=== PATIENT | female | born 1980 | race Two or more races ===

== ENCOUNTER → 2021-01-14 08:15 | Outpatient (BNVA) | payer OTHER, SELFPAY | PROVIDERS: Visit Provider Internal Medicine Gastroenterology | DX: R10.13 Epigastric pain (principal); R19.4 Change in bowel habit; K62.5 Hemorrhage of anus and rectum | CPT/HCPCS: Q3014 ==

== ENCOUNTER 2021-02-13 12:27 | Day surgery (SDC) | payer OTHER, SELFPAY ==
--- NOTE | 2021-02-12 15:21 | HO.ANESPROP2 ---
Documented by User: Linda Mena 02/12/21 15:22 HPI - Anesthesia Eval Consult details Narrative: 40yo F for Upper Endoscopy and Colonoscopy PMFSH Active Problems Active Problems: All Active Problems (Updated 02/07/21 @ 15:19 by Marianne Cavanaugh) Rectal bleeding (Acute) Altered bowel habits (Acute) Epigastric abdominal pain (Acute) Past Medical History Medical History (Updated 02/13/21 @ 12:59 by Alexia Dobbins) Anxiety Asthma Diabetes mellitus GERD (gastroesophageal reflux disease) HTN (hypertension) DARIN (obstructive sleep apnea) Umbilical hernia Family History Family History Mother HTN (hypertension) Diabetes Father Heart disease Surgical History Surgical History H/O section H/O eye surgery History of appendectomy History of esophagogastroduodenoscopy (EGD) History of tonsillectomy Hx of bilateral breast reduction surgery Social History Social History Household Members: Spouse and Children Alcohol intake: current Alcohol intake frequency: other Smoking Status: Never smoker Use of substances other than those prescribed or required for medical reasons: No Advance Directives: No Advance Directives Information Provided: Yes Meds Allergies Allergy/AdvReac Type Severity Reaction Status Date / Time codeine [CODEINE] Allergy Severe SWELLING Verified 02/13/21 12:34 doxycycline [DOXYCYCLINE] Allergy Severe SWELLING Verified 02/13/21 12:34 guaifenesin [From ROBITUSSIN] Allergy Intermediate DIFFICULTY Verified 02/13/21 12:34 BREATHING antibiotic not sure which one Allergy Mild swollen Uncoded 02/07/21 15:19 face Home Medications Medication Instructions Recorded Confirmed Last Taken Type cholecalciferol (vitamin D3) 25 mcg PO DAILY 02/07/21 02/07/21 Unknown History [Vitamin D3] hydroxyzine pamoate 1 cap PO QID PRN 02/07/21 02/07/21 Unknown History lisinopril-hydrochlorothiazide 1 tab PO DAILY 02/07/21 02/07/21 Unknown History metformin 2 tab PO BID 02/07/21 02/07/21 Unknown History semaglutide [Ozempic] 1 mg SUBCUT QWEEK 02/07/21 02/07/21 Unknown History Exam Exam Date and Time: February 12, 2021 1521 Assessment and Plan Assessment Anesthesia Assessment: Chart Reviewed Documented by User: Alexia Dobbins 02/13/21 13:00 [facility] Past Medical History Medical History (Updated 02/13/21 @ 12:59 by Alexia Dobbins) Anxiety Asthma Diabetes mellitus GERD (gastroesophageal reflux disease) HTN (hypertension) DARIN (obstructive sleep apnea) Umbilical hernia Family History Family History Mother HTN (hypertension) Diabetes Father Heart disease Family history of problems with anesthesia: No Surgical History Surgical History H/O section H/O eye surgery History of appendectomy History of esophagogastroduodenoscopy (EGD) History of tonsillectomy Hx of bilateral breast reduction surgery History of Problems with Anesthesia: No Social History Social History Household Members: Spouse and Children Alcohol intake: current Alcohol intake frequency: other Smoking Status: Never smoker Use of substances other than those prescribed or required for medical reasons: No Advance Directives: No Advance Directives Information Provided: Yes Meds Allergies Allergy/AdvReac Type Severity Reaction Status Date / Time codeine [CODEINE] Allergy Severe SWELLING Verified 02/13/21 12:34 doxycycline [DOXYCYCLINE] Allergy Severe SWELLING Verified 02/13/21 12:34 guaifenesin [From ROBITUSSIN] Allergy Intermediate DIFFICULTY Verified 02/13/21 12:34 BREATHING antibiotic not sure which one Allergy Mild swollen Uncoded 02/07/21 15:19 face Home Medications Medication Instructions Recorded Confirmed Last Taken Type cholecalciferol (vitamin D3) 25 mcg PO DAILY 02/07/21 02/07/21 Unknown History [Vitamin D3] hydroxyzine pamoate 1 cap PO QID PRN 02/07/21 02/07/21 Unknown History lisinopril-hydrochlorothiazide 1 tab PO DAILY 02/07/21 02/07/21 Unknown History metformin 2 tab PO BID 02/07/21 02/07/21 Unknown History semaglutide [Ozempic] 1 mg SUBCUT QWEEK 02/07/21 02/07/21 Unknown History Exam Height,Weight and Vital Signs: Vital Signs Temp Pulse Resp BP Pulse Ox 02/13/21 12:37 97.8 F 95 16 135/89 98 Pertinent Lab Results Pertinent Lab Results: Lab Results 02/13/21 02/13/21 Range/Units 12:36 12:41 POC Glucose 138 H (60-115) mg/dL Urine Test NEGATIVE (NEGATIVE) Airway Mallampati Class: II TM Dist: >3cm Neck ROM: Full Heart: RRR Lungs: CTAB Assessment and Plan Assessment Anesthesia Assessment: Anesthesia Plan Discussed and Chart Reviewed Final Anesthetic Review NPO: Yes ASA Class: II Final Preanesthetic Review: No Changes in Pt Med Stat, Meds/Allgs Chart Reviewed, Consent Obtained/Reviewed and Anes Risks/Benef Reviewed Patient Risk: Low Procedure Risk: Low Assessment/Block/Sedation in SS: Assess/Block/Sedation-SS Anesthetic Plan Anesthetic Plan: MAC: Disposition: Standard PACU
[2021-02-13 12:37] VITALS: BP 135/89; PULSE 95; RESP 16; TEMP 36.6; O2SAT 98; BMI 38.7
[2021-02-13 12:45] LABS: Glucose, Whole Blood 138 mg/dL (60-115)
[2021-02-13 12:54] LABS: UPreg QC Valid YES; Urine Pregnancy NEGATIVE (NEGATIVE)
[2021-02-13] MEDS: Lactated Ringers 1,000 ML 100 ML IVCONT (12:54)
--- NOTE | 2021-02-13 12:57 | MHC.SHP ---
Pre-Procedural Eval Section B Chief Complaint: Rectal Bleeding, Epigastric Pain Relevant Family History (Specify if Yes): No Relevant Social History: None Present Medications: see Short Stay Collaborative assessment Medical History: Significant History (Anxiety Asthma Diabetes mellitus GERD (gastroesophageal reflux disease) HTN (hypertension) Umbilical hernia) History of Previous Operations: Relevant previous surgery/procedure and date(s) (H/O section H/O eye surgery History of appendectomy History of esophagogastroduodenoscopy (EGD) History of tonsillectomy Hx of bilateral breast reduction surgery) Allergies: Allergies Allergy/AdvReac Type Severity Reaction Status Date / Time codeine [CODEINE] Allergy Severe SWELLING Verified 02/13/21 12:34 doxycycline [DOXYCYCLINE] Allergy Severe SWELLING Verified 02/13/21 12:34 guaifenesin [From ROBITUSSIN] Allergy Intermediate DIFFICULTY Verified 02/13/21 12:34 BREATHING antibiotic not sure which one Allergy Mild swollen Uncoded 02/07/21 15:19 face Review of Systems Sugical H&P ROS: Negative: Constitution, Cardiovascular, Respiratory, Neurological, Psychiatric, Hem-Onc, Allergic/Immunologic, Gastrointestinal, Genitourinary, Musculoskeletal, Integumentary, Endocrine and Eyes/Ears/Nose/Throat Exam Surgical H&P Exam: Normal: HEENT, Normal: Heart, Normal: Lungs, Normal: Extremities, Normal: Abdomen, Normal: Skin and Normal: Neurological Plan Diagnosis/Plan: Unchanged I have reviewed the history and physical and performed a pertinent physical examination on my patient. No changes have occurred unless specified.
--- NOTE | 2021-02-13 13:13 | PM.OP ---
Brief Operative Note Date of Service: 02/13/21 Pre-op diagnosis: epigastric pain, altered bowle habit Post-op diagnosis: same Procedure: see op note Surgeon: Tia Dejesus MD Anesthesia: MAC Estimated blood loss (mL): 0 Condition: stable Disposition: PACU
--- NOTE | 2021-02-13 13:13 | W.PM.OPN ---
Operative Note Operative Note Date of Service: 02/13/21 Narrative: Operative Information Procedure Description: EGD, Colonoscopy FLEXIBLE TRANSORAL UPPER GASTROINTESTINAL ENDOSCOPY AND COLONOSCOPY PROCEDURE NOTE UPPER ENDOSCOPY Consent: Indications for the procedure and potential complications of bleeding, perforation, reaction to medications and missed diagnosis were discussed with the patient and informed consent was obtained. Instrument: Olympus GIF H 190 J mid size upper endoscope Monitoring: Vital signs and clinical assessment, continuous EKG monitoring, Pulse oximetry, Carbon Dioxide monitoring and blood pressure monitoring were done throughout the procedure. Procedure: The patient was placed in the left lateral decubitis position and pre-procedure medications were administered and a bite block was placed. The endoscope was inserted into the mouth and advanced under direct vision to the third part of duodenum. A careful inspection was made as the upper endoscope was withdrawn including a retroflexed examination of the proximal stomach; Findings and interventions are described below. Findings: Larynx:normal Esophagus: GE junction at 35 cm, diaphragm hiatus at 35 cm, normal mucosa-random esophagus bx taken Stomach: patchy erythematous mucosa. Biopsies were obtained. Grade 2 flap valve on retroflexed examination of the cardia. There appeared to be a bulge in the antrum, int he anterior stomach. ?extrinsic compression vs submucosal swelling Duodenum: Normal bulb and descending duodenum, bx taken Intervention: Biopsies as noted above COLONOSCOPY Instrument: Olympus variable stiffness pediatric scope 190L Colonoscopy Monitoring: Vital signs and clinical assessment, continuous EKG monitoring, Pulse oximetry, Carbon Dioxide monitoring and blood pressure monitoring were done throughout the procedure. Colon withdrawal time was 10 minutes. Procedure: The patient was placed in the left lateral decubitis position and pre-procedure medications were administered. After a digital rectal examination of the ano-rectum, the video colonoscope was inserted into the rectum and advanced through the colon to the cecum/TI. The colonoscope was slowly withdrawn in a retrograde panoramic fashion and the colon mucosa was carefully examined including a retroflexed view of the rectum. Findings and interventions are described below. Procedure Difficulty: easy Findings: Terminal Ileum-normal, bx taken random colon bx taken Cecum: 5-6 mm sessile polyp removed with forceps Ascending Colon: normal Transverse Colon - 6-8 mm sessile polyp removed with forceps Descending Colon:normal Sigmoid Colon: normal Rectum: Retroflexion with small internal hemorrhoids, grade I Anorectum - normal Colon preparation: [place] Bowel Preparation Scale Right colon; 2 Transverse colon: 3 Left colon; 2 (0 = Unprepared colon segment with mucosa not seen due to solid stool that cannot be cleared. 1 = Portion of mucosa of the colon segment seen, but other areas of the colon segment not well seen due to staining, residual stool and/or opaque liquid. 2 = Minor amount of residual staining, small fragments of stool and/or opaque liquid, but mucosa of colon segment seen well. 3 = Entire mucosa of colon segment seen well with no residual staining, small fragments of stool or opaque liquid) Impression and Post Procedure Diagnosis: Endoscopy Findings: gastritis possible extrinsic stomach compression Colonoscopy Findings: polyps internal hemorrhoids Plan: Await Pathology results Repeat Colonoscopy in 5 years if adenoma polyps, 10 yrs if hyperplastic or earlier if clinically indicated High fiber diet leaflet avoid straining at stool, epsom salts and sitz bath, anusol supps or cream prn CT A/P with PO and IV contrast to eval stomach in more detail, might need EUS Above findings were reviewed with the patient and relevant handouts were provided if indicated.
[2021-02-13 13:47] VITALS: BP 85/53; PULSE 88; RESP 20; TEMP 36.4; O2SAT 99
[2021-02-13 14:05] VITALS: BP 104/65; PULSE 84; RESP 18; TEMP 36.4; O2SAT 97
== END 2021-02-13 14:22 ==
LOC: HO.SSS 12:28
PROVIDERS: Nurse Practitioner; PCP Hospitalist; Visit Provider Internal Medicine Gastroenterology
PROC: (CPT 45380; principal; 2021-02-13 14:00)
DX: K62.5 Hemorrhage of anus and rectum (principal); D12.0 Benign neoplasm of cecum; D12.3 Benign neoplasm of transverse colon; K52.9 Noninfective gastroenteritis and colitis, unspecified; K64.0 First degree hemorrhoids; K29.50 Unspecified chronic gastritis without bleeding; B96.81 Helicobacter pylori [H. pylori] as the cause of diseases classified elsewhere; K21.9 Gastro-esophageal reflux disease without esophagitis; K44.9 Diaphragmatic hernia without obstruction or gangrene; J45.909 Unspecified asthma, uncomplicated; I10 Essential (primary) hypertension; E11.9 Type 2 diabetes mellitus without complications; Z79.84 Long term (current) use of oral hypoglycemic drugs; Z79.899 Other long term (current) drug therapy
CPT/HCPCS: 45380; 43239; 81025; 82947; 88305; 88342

== ENCOUNTER 2021-03-28 12:43 | Outpatient (REF) | payer OTHER, SELFPAY ==
--- NOTE | ~2021-03-28 | CT_ITS ---
EXAMINATION: CT ABDOMEN AND PELVIS WITH CONTRAST CLINICAL INFORMATION: Epigastric pain. Question extrinsic compression of stomach. COMPARISON: CT abdomen and pelvis 10/23/2009 TECHNIQUE: Multidetector volumetric images were obtained from the superior aspect of the liver through the pubic symphysis following administration 85 mL of Omnipaque 350 intravenous contrast. Sagittal and coronal reformatted images were obtained on the technologist's workstation. Oral contrast: No This CT examination was performed using dose optimization techniques as appropriate, variously including the following: *Automated exposure control *Adjustment of mA and/or kV according to patient size (this includes techniques or standardized protocols for targeted exams where dose is matched to indication/reason for exam; i.e. extremities or head) *Use of iterative reconstruction technique DLP: 658 mGy-cm FINDINGS: LUNG BASES: Minimal atelectatic changes as seen in left lung base. Heart size is normal. LIVER, GALLBLADDER, AND BILIARY TREE: The liver is normal in size, shape, and attenuation. No focal hepatic lesion or biliary ductal dilatation is present. There are multiple radiolucent gallstones without wall thickening or pericholecystic fluid collection. PANCREAS: Unremarkable. SPLEEN: Unremarkable. ADRENAL GLANDS: Unremarkable. KIDNEYS AND URETERS: The kidneys are normal in size, shape, and attenuation. No hydronephrosis, hydroureter, or calculi seen. No perinephric stranding. BLADDER: Unremarkable. GASTROINTESTINAL TRACT: There is scattered stool and gas seen throughout the colon without distention. Oral contrast opacified small bowel loops are normal caliber. Appendix has been surgically removed with sarah in place. The stomach is nondistended. ABDOMINAL WALL: There is evidence of abdominal wall hernia repair with mesh in place. Through the mesh exists a small umbilical hernia containing fat. The neck is approximately 2.7 cm wide. LYMPH NODES: Normal. VASCULAR: Unremarkable. PELVIC VISCERA: The uterus is anteverted within IUD well located in the endometrial canal. There is a 2.6 x 2.7 cm cyst right adnexa likely of ovarian origin. OSSEOUS STRUCTURES: There is no lytic or sclerotic process seen. Mild degenerative disc changes are seen at L5-S1 disc level. CT/CT abdomen pelvis w con IMPRESSION: Cholelithiasis without wall thickening. Moderate constipation. Evidence of previous abdominal wall hernia repair with mesh in place. There is a recurrent umbilical hernia with intraperitoneal fat within.
[2021-03-28 15:34] LABS: Blood Urea Nitrogen 13 mg/dL (9-16); Estimated Glomerular Filt Rate > 60
[2021-03-28] MEDS: iohexoL 350 MG/ML 100 ML INFUS..BTL 85 ML IV (16:13)
== END 2021-03-28 12:44 | disposition home or self-care (01) ==
LOC: HO.CT 12:43
PROVIDERS: Radiology Diagnostic Radiology; Visit Provider Internal Medicine Gastroenterology
DX: R10.13 Epigastric pain (principal); R19.4 Change in bowel habit
CPT/HCPCS: 36415; 74177; 82565; 84520; Q9967

== ENCOUNTER → 2021-05-02 13:41 | Outpatient (REF) | payer OTHER, SELFPAY ==
--- NOTE | 2021-05-02 13:50 | ECG_ITS ---
Hook-up date: 2021-05-02 14:05:00 Duration: 47:59:00 Test Indications: R00.2 - Palpitations Medications: [id number] QRS complexes 433 Ventricular ectopics which represent <1 % of total QRS comp. 4 Supraventricular ectopics which represent <1 % of total QRS comp. * Paced QRS complexs which represent % of total QRS comp. VENTRICULAR ECTOPY 429 Isolated 0 Bigeminal Cycles 2 Couplets 0 Runs 0 Beats in Runs * Beats LONGEST at * BPM at :: -- * Beats FASTEST at * BPM at :: -- SUPRAVENTRICULAR ECTOPY 4 Isolated 0 Couplets 0 Runs 0 Beats in Runs * Beats LONGEST at * BPM at :: -- * Beats FASTEST at * BPM at :: -- HEART RATES 64 MIN at 06:33:45 2021-05-03 94 AVG 140 MAX at 20:47:28 2021-05-02 LONGEST RR 0.9440 secs at 06:33:41 2021-05-03 S-T LEVELS Channel 1 - 128 mm at 14:05:00 2021-05-02 - 128 mm at 14:05:00 2021-05-02 Channel 2 - 128 mm at 14:05:00 2021-05-02 - 128 mm at 14:05:00 2021-05-02 Channel 3 - 128 mm at 03:32:41 -- - 128 mm at 03:32:41 Basic rhythm Normal sinus rhythm No long pause or profound bradycardia Occasional Premature ventricular complexes No diary submitted Referred By: Frandy Patricia Overread By: KI SALVADOR MD
== END ==
LOC: HO.CARD 13:41
PROVIDERS: PCP Family Medicine; Visit Provider Family Medicine
DX: R00.2 Palpitations (principal)
CPT/HCPCS: 93225; 93226

== ENCOUNTER → 2021-05-10 11:24 | Outpatient (BNVA) | payer OTHER, SELFPAY | PROVIDERS: PCP Nurse Practitioner Family; Visit Provider Internal Medicine Gastroenterology ==

== ENCOUNTER → 2021-05-23 09:24 | Outpatient (BNVA) | payer OTHER, SELFPAY | PROVIDERS: PCP Family Medicine; Referring Provider Family Medicine; Visit Provider Surgery | DX: R10.33 Periumbilical pain (principal) | CPT/HCPCS: 99202 ==

== ENCOUNTER 2021-06-07 17:45 | Emergency (ER) | payer OTHER, SELFPAY ==
[2021-06-07] VITALS (7 sets, daily range): BP systolic 149–186; BP diastolic 82–119; PULSE 85–93; RESP 18; TEMP 37.1; O2SAT 98–99; BMI 38.9
--- NOTE | 2021-06-07 | ECG_ITS ---
Test Reason : PALPITATIONS Blood Pressure : / mmHG Vent. Rate : 089 BPM Atrial Rate : 089 BPM P-R Int : 136 ms QRS Dur : 080 ms QT Int : 374 ms P-R-T Axes : 055 072 040 degrees QTc Int : 455 ms Normal sinus rhythm Normal ECG No previous ECGs available Referred By: Generic ED Physician Electronically Signed By:JENIFER GARCIA
--- NOTE | ~2021-06-07 | XR_ITS ---
EXAMINATION: XR CHEST CLINICAL INFORMATION: Palpitations COMPARISON: None TECHNIQUE: Frontal view of the chest was obtained. 1804 hours FINDINGS: No significant abnormality is noted involving the heart, lungs, mediastinum, bony thorax or soft tissues. XR/XR chest 1V IMPRESSION: Unremarkable examination.
[2021-06-07 18:02] LABS: MANUAL DIFF FLAG NO
[2021-06-07 18:04] LABS: Basophils Percent Auto 0.3 % (0-2); Eosinophils Absolute Auto 0.1 X10*3/uL (0.0-0.4); Eosinophils Percent Auto 1.5 % (0-4); Hematocrit 39.5 % (37-47); Hemoglobin 13.3 g/dl (12.0-16.0); Imm Gran Abs Auto 0.03 X10*3/uL (0.00-0.03); Imm Gran Pct Auto 0.4 % (0.0-0.4); Lymphocytes Absolute Auto 2.2 X10*3/uL (1.2-4.9); Lymphocytes Percent Auto 29.6 % (20-40); Mean Corpuscular HGB Conc 33.7 g/dl (31.0-35.0); Mean Corpuscular Hemoglobin 29.2 pg (27.0-33.0); Mean Corpuscular Volume 86.8 fL (80-98); Mean Platelet Volume 9.4 fL (9.4-12.3); Monocytes Absolute Auto 0.5 X10*3/uL (0.1-1.2); Monocytes Percent Auto 6.7 % (2-11); Neutrophils Absolute Auto 4.6 X10*3/uL (2.0-8.3); Neutrophils Percent Auto 61.5 % (45-73); Platelet Count 290 X10*3/uL (160-400); Red Blood Count 4.55 X10*6/uL (4.20-5.50); Red Cell Distribution Width 11.9 % (11.0-16.0); White Blood Count 7.5 X10*3/uL (4.8-10.8)
[2021-06-07 18:26] LABS: Alanine Aminotransferase 16 U/L (0-31); Alkaline Phosphatase 78 U/L (39-117); Anion Gap 14 (12-20); Aspartate Amino Transferase 15 U/L (5-31); Bilirubin Total 0.3 mg/dL (0.0-1.0); Blood Urea Nitrogen 12 mg/dL (9-16); Calcium 9.6 mg/dL (8.4-10.2); Carbon Dioxide 23 mmol/L (22-29); Chloride 104 mmol/L (96-108); Creatinine Clr Calc Pharmacy 92.6; Estimated Glomerular Filt Rate > 60; Glucose Random 170 mg/dL (60-115); Potassium 3.9 mmol/L (3.3-5.1); Sodium 137 mmol/L (135-145); Total Protein 6.6 g/dL (6.5-8.0)
[2021-06-07 18:29] LABS: Troponin-I High Sensitivity < 3.5 ng/L (<3.5-17.0)
--- NOTE | 2021-06-07 21:17 | ED.ARRPALP ---
HPI - Arrhythmia/Palpitations General Chief Complaint: Arrhythmia/Palpitations Stated Complaint: palpitations Time Seen by Provider: 06/07/21 20:55 Source: patient Mode of arrival: ambulatory History of Present Illness HPI narrative: 40-year-old female with history of hypertension presents with 3 days of chest discomfort but denies any dizziness, headaches, speech/visual/auditory changes and denies any unilateral weakness/numbness/tingling. Patient denies shortness of breath and states that her blood pressure medication prescription had run out. During her stay here in the emergency room her was able to feel her blood pressure medication which she took approximately 1 hour ago from the time of my interview with her. Related Data Home Medications Medication Instructions Recorded Confirmed cholecalciferol (vitamin D3) 25 25 mcg PO DAILY 02/07/21 05/23/21 mcg (1,000 unit) capsule (Vitamin D3) hydroxyzine pamoate 50 mg capsule 1 cap PO QID PRN 02/07/21 05/23/21 metformin 500 mg tablet 2 tab PO BID 02/07/21 05/23/21 semaglutide 1 mg/dose (2 mg/1.5 1 mg SUBCUT QWEEK 02/07/21 05/23/21 mL) subcutaneous pen injector (Ozempic) semaglutide 1 mg/dose (4 mg/3 mL) mg SUBCUT 05/23/21 05/23/21 subcutaneous pen injector Previous Rx's Medication Instructions Recorded omeprazole 20 mg tablet,delayed 40 mg PO DAILY #90 tab 01/14/21 release sodium,potassium,mag sulfates 17.5 See Rx Instructions PO .COMPLEX 01/14/21 gram-3.13 gram-1.6 gram oral soln #354 ml (Suprep Bowel Prep Kit) azithromycin 500 mg tablet 500 mg PO DAILY 14 Days #14 tab 02/18/21 bismuth subsalicylate 262 mg 2 tab PO QID 14 Days #112 tab 02/18/21 chewable tablet metronidazole 500 mg tablet 500 mg PO TID 14 Days #42 tab 02/18/21 pantoprazole 20 mg tablet,delayed 20 mg PO BID 14 Days #28 tab 02/18/21 release lisinopril 20 1 tab PO DAILY #90 tab 06/07/21 mg-hydrochlorothiazide 12.5 mg tablet Allergies Allergy/AdvReac Type Severity Reaction Status Date / Time codeine [CODEINE] Allergy Severe SWELLING Verified 06/07/21 19:01 doxycycline [DOXYCYCLINE] Allergy Severe SWELLING Verified 06/07/21 19:01 guaifenesin [From ROBITUSSIN] Allergy Intermediate DIFFICULTY Verified 06/07/21 19:01 BREATHING antibiotic not sure which one Allergy Mild swollen Uncoded 02/07/21 15:19 face Review of Systems Review of Systems: Pertinent positives and negatives as stated in HPI 10 point review of systems is otherwise negative. PMFSH Past Medical History Source: nursing notes reviewed Medical History Anxiety Asthma Diabetes mellitus GERD (gastroesophageal reflux disease) HTN (hypertension) DARIN (obstructive sleep apnea) Umbilical hernia Surgical History H/O section H/O eye surgery History of appendectomy History of esophagogastroduodenoscopy (EGD) History of tonsillectomy Hx of bilateral breast reduction surgery Family History Family History Mother HTN (hypertension) Diabetes Father Heart disease Social History Social History Household Members: Spouse and Children Alcohol intake: current Alcohol intake frequency: other Advance Directives: No Advance Directives Information Provided: No Patient : No Physical Exam Vital Signs: Vital Signs: Last Vital Signs Temp 98.7 F 06/07/21 17:51 Pulse 93 06/07/21 22:10 Resp 18 06/07/21 18:57 BP 149/82 H 06/07/21 22:10 Pulse Ox 99 06/07/21 18:57 Body Mass Index 38.9 VITAL SIGNS: Reviewed. GENERAL: Well developed, well nourished, in no acute distress. HEAD: Normocephalic/atraumatic EYES: PERRLA, EOMI EARS: Ext canals without abnormality OROPHARYNX: no oral lesions noted, posterior pharynx clear LUNGS: Normal breath sounds. No adventitious sounds or accessory muscle use. SpO2<99> CARDIOVASCULAR: Regular rate and rhythm without noted murmurs, no JVD or lower extremity edema. ABDOMEN: Soft, non-tender, non-distended with bowel sounds. SKIN: Inspection of the skin reveals no rashes NEUROLOGIC: Alert and oriented x 4. Strength and sensation to light touch were grossly intact x 4. Course Course Course Narrative: This is a 40-year-old female with history and clinical presentation consistent with symptoms secondary to uncontrolled hypertension but no evidence of focal deficits. Of all investigations negative for acute findings. Patient took her lisinopril/hydrochlorothiazide medication and on re-evaluation at 1:00 a.m. post medication she still remains hypertensive and will receive 10 mg of Norvasc and obtain a urine sample and re-evaluated in 1 hour. Re-evaluation after receiving medication and patient states she is feeling better, blood pressure is noted be under control, and review of urinalysis negative for proteinuria. Patient will be discharged in stable condition. Discharge Plan Discharge Clinical Impression: Hypertension, uncontrolled, Poor compliance with medication Patient Disposition: Home, Self-Care Instructions: Heart Healthy Diet (ED), DASH Eating Plan (ED), Hypertension (ED) Additional Instructions: Resume all medication as prescribed. Follow-up with your primary care provider in the next 2-3 days for re-evaluation. Return to the ER for acute worsening of symptoms. Prescriptions: No Action bismuth subsalicylate 262 mg tablet,chewable 2 tab PO QID 14 Days Qty: 112 RF: 0 metronidazole 500 mg tablet 500 mg PO TID 14 Days Qty: 42 RF: 0 azithromycin 500 mg tablet 500 mg PO DAILY 14 Days Qty: 14 RF: 0 pantoprazole 20 mg tablet,delayed release (DR/EC) 20 mg PO BID 14 Days Qty: 28 RF: 0 lisinopril-hydrochlorothiazide 20-12.5 mg tablet 1 tab PO DAILY Qty: 90 RF: 0 metformin 500 mg tablet 2 tab PO BID RF: 0 hydroxyzine pamoate 50 mg capsule 1 cap PO QID PRN (Reason: anxiety) RF: 0 Ozempic 1 mg/dose (2 mg/1.5 mL) pen injector 1 mg subcut QWEEK RF: 0 cholecalciferol (vitamin D3) [Vitamin D3] 25 mcg (1,000 unit) Capsule 25 mcg PO DAILY RF: 0 Ozempic 1 mg/dose (4 mg/3 mL) pen injector subcut RF: 0 omeprazole 20 mg tablet,delayed release (DR/EC) 40 mg PO DAILY Qty: 90 RF: 3 Suprep Bowel Prep Kit 17.5-3.13-1.6 gram recon soln See Rx Instructions PO .COMPLEX Qty: 354 RF: 0 Referrals: [facility] [Primary Care Provider] - 2 days
[2021-06-07] MEDS: amLODIPine Besylate 10 MG TABLET PO (21:22)
[2021-06-07 21:42] LABS: Appearance Urine CLEAR; Color Urine YELLOW; Glucose Urine UA NEG (NEG); Leukocyte Esterase Urine NEG (NEG); Nitrite Urine NEG (NEG); UACC Culture Trigger NO; Urine Blood TRACE (NEG); Urine Ketones NEG (NEG); Urine Protein NEG (NEG-TRACE)
[2021-06-07 21:43] LABS: UPreg QC Valid YES; Urine Pregnancy NEGATIVE (NEGATIVE)
[2021-06-07 21:48] LABS: Bacteria Urine TRACE /LPF; RBC Urine 0 /HPF (0); Squamous Epithelial Cell Urine 1+ /LPF; WBC Urine 0 /HPF (0-4)
[2021-06-07 22:03] LABS: Amphetamine Screen Urine Not Detected (Not Detect); Barbiturates, Urine Not Detected (Not Detect); Benzodiazepines Screen Urine Not Detected (Not Detect); Cannabinoid Screen Urine Not Detected (Not Detect); Cocaine Screen Urine Not Detected (Not Detect); Opiate Screen Urine Not Detected (Not Detect); Phencyclidine Screen Urine Not Detected (Not Detect)
== END 2021-06-07 22:55 | disposition home or self-care (01) ==
PROVIDERS: Emergency Provider Student in an Organized Health Care Education/Training Program
DX: I10 Essential (primary) hypertension (principal); E11.9 Type 2 diabetes mellitus without complications; Z91.14 Patient's other noncompliance with medication regimen
CPT/HCPCS: 36415; 71045; 80053; 80307; 81001; 81025; 84484; 85025; 93005; 99284

== ENCOUNTER 2021-06-17 08:39 | Outpatient (REF) | payer OTHER, SELFPAY ==
--- NOTE | ~2021-06-17 | US_ITS ---
EXAMINATION: US ABDOMEN LIMITED CLINICAL INFORMATION: Periumbilical pain.. Status post umbilical hernia repair with periumbilical pain and question recurrent hernia. COMPARISON: CT abdomen pelvis 03/28/2021. X-ray KUB 07/30/2020. TECHNIQUE: Real-time imaging of the umbilical region. FINDINGS: Imaging was performed with patient supine as well as standing with cough and Valsalva maneuvers. About the midline there is a region of shadowing present along the midline which is difficult to tell if it may be hernia sac containing bowel versus postsurgical change however this does have the appearance of a possible hernia versus diastases of rectus musculature with weakening of the linear alba which is bulging. The bulge appears to measure approximately 2 cm in width. Review of CT scan from March 28, 2021 demonstrates what appears to be diastases recti FREE FLUID: None. US/US abdomen limited IMPRESSION: Diastases recti with bulging of the linear alba with underlying postsurgical change and question loop of bowel.
== END 2021-06-17 08:40 | disposition home or self-care (01) ==
LOC: HO.US 08:39
PROVIDERS: Visit Provider Surgery
DX: R10.33 Periumbilical pain (principal)
CPT/HCPCS: 76705

== ENCOUNTER → 2021-07-09 08:51 | Outpatient (BNVA) | payer OTHER, SELFPAY | PROVIDERS: Visit Provider Surgery | DX: R10.33 Periumbilical pain (principal) | CPT/HCPCS: 99212 ==

== ENCOUNTER 2022-02-14 10:13 | Outpatient (REF) | payer OTHER, SELFPAY ==
--- NOTE | ~2022-02-14 | MM_ITS ---
EXAMINATION: MM SCREENING DIGITAL BREAST TOMOSYNTHESIS, BILATERAL CLINICAL INFORMATION: Screening. Asymptomatic. No prior breast imaging. Prior history bilateral reduction mammoplasty. Age 41. No known family history breast cancer. The lifetime risk of breast cancer based on the Tyrer-Cuzick Model is 8%. COMPARISON: None (current study represents initial baseline exam). TECHNIQUE: Digital breast tomosynthesis is performed in both the craniocaudal and mediolateral oblique views along with computer-aided detection (CAD). Synthesized 2D images are generated from the tomosynthesis. FINDINGS: There are scattered areas of fibroglandular density (ACR BI-RADS breast composition Category b). There are no significant masses, abnormal calcifications, or other abnormalities. There are some scattered benign punctate round rim dermal calcifications and minor scarring consistent with the reduction mammoplasty. The axilla are unremarkable. MM/MM tomosynthesis screening BI IMPRESSION: No mammographic evidence of malignancy. ASSESSMENT: BI-RADS 2: Benign RECOMMENDATION: Routine annual mammography screening. This patient's information was entered into a reminder system with a target due date for their next mammogram.
== END 2022-02-14 10:14 | disposition home or self-care (01) ==
LOC: HO.MAMMO 10:13
PROVIDERS: PCP Hospitalist; Visit Provider Hospitalist
DX: Z12.31 Encounter for screening mammogram for malignant neoplasm of breast (principal)
CPT/HCPCS: 77063; 77067

== ENCOUNTER → 2022-02-21 10:55 | Outpatient (BNVA) | payer OTHER, SELFPAY | PROVIDERS: PCP Hospitalist; Visit Provider Internal Medicine Gastroenterology | DX: R10.13 Epigastric pain (principal); K21.9 Gastro-esophageal reflux disease without esophagitis; E66.9 Obesity, unspecified | CPT/HCPCS: 99212 ==

== ENCOUNTER 2022-09-03 10:13 | Emergency (ER) | payer OTHER, SELFPAY ==
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
--- NOTE | ~2022-09-03 | CT_ITS ---
EXAMINATION: CT SOFT TISSUE NECK WITH CONTRAST CLINICAL INFORMATION: Possible lesion right para epiglottic region. COMPARISON: CT cervical spine 09/03/2022. TECHNIQUE: Following the intravenous administration of 70 mL of Omnipaque 350 intravenous contrast, helical imaging was performed in the axial plane with generation of coronal and sagittal reformatted images. This CT examination was performed using dose optimization techniques as appropriate, variously including the following: *Automated exposure control *Adjustment of mA and/or kV according to patient size (this includes techniques or standardized protocols for targeted exams where dose is matched to indication/reason for exam; i.e. extremities or head) *Use of iterative reconstruction technique DLP: 2050 mGy-cm FINDINGS: There is no cervical adenopathy is identified. There are small lymph nodes at multiple levels in the neck bilaterally. The parotid glands are homogeneous in attenuation. The submandibular glands are normal. There is asymmetric fullness of the right lingual tonsil, with effacement of the right vallecula, and there appears to be some thickening of the soft tissues in the right base of tongue more laterally. The laryngeal structures are normal. The parapharyngeal fat is preserved. The carotid sheath vasculature opacifies normally. No other extra mucosal soft tissue mass or fluid collection is seen. No retropharyngeal fluid collection is seen. The thyroid gland is normal. The superior mediastinum is unremarkable. The lung apices are clear. The mastoid air cells are well-aerated. There is a small retention cyst in the left maxillary sinus. The temporomandibular joints are normal. No periapical disease is identified. There are mild spondylitic changes in the cervical spine. The imaged portions of the brain parenchyma are unremarkable. CT/CT soft tissue neck w IV con IMPRESSION: 1. There is asymmetric fullness of the right lingual tonsil and there is some thickening of the soft tissues in the right base of tongue. Correlate clinically for intraoral lesion. 2. There is no cervical lymphadenopathy and no other masses are demonstrated.
[2022-09-03 11:09] VITALS: BP 130/103; PULSE 89; RESP 16; TEMP 36.6; O2SAT 96; BMI 45.7
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
--- OUTSIDE RECORDS SUMMARY | 2022-09-03 14:33 | XMS_ITS | Continuity of Care Document ---
:1980 Author Organization [facility] Address [address] [place] [address]- Care Team Providers Name Role Phone Kiko Garcia MD Primary Care Physician Encounter [facility] [place] Date(s): 02/28/20 - 06/27/20 [facility] Endocrinology and Diabetes [address] [place] [id number] [facility] Attending Physician: Sea Llamas MD Admitting Physician: Sea Llamas MD Referring Physician: Kiko Garcia MD Allergies, Adverse Reactions, Alerts Substance Reaction Severity Status NKA Active Immunizations Given and Recorded Vaccine Date Status Refusal Reason Hepatitis B Vaccine (old term) 07/04/96 Given Hepatitis B Vaccine (old term) 12/21/95 Given Hepatitis B Vaccine (old term) 11/12/95 Given Medications albuterol 0.083% inhalation solution 3 mL = 2.5 mg, Inhalation, Every 6 hours, PRN for wheezing, # 60 each, 0 Refills, Maintenance, 10/01/15 7:04:47, Solution Start Date: 10/01/15 Status: Orderedalbuterol 90 mcg/inh inhalation powder 1 puffs, Inhalation, Every 4 hours, PRN as needed, # 1 each, 0 Refills, Maintenance, 10/01/15 5:42:11, Powder Start Date: 10/01/15 Status: Ordereddocusate sodium 100 mg oral capsule 1 capsule = 100 mg, By Mouth, 2 times a day, # 30 capsule, 0 Refills, Maintenance, Capsule Start Date: 12/26/10 Status: OrderedFreestyle InsuLinx Test Strips See Instructions, # 100 each, Refills 11, Tot. Refills 11, Maintenance, Test 2 times a day, 07/28/1716:25:10, DM2, E11.65, Compound Start Date: 07/28/17 Status: OrderedFreestyle Lite Lancets See Instructions, # 60 each, Refills 11, Tot. Refills 11, Maintenance, Use to check BG 2 times/day, 12/23/18 14:30:13 EST, DxE11.65, Compound Start Date: 12/23/18 Status: OrderedFreestyle Lite Lancets See Instructions, # 200 each, Refills 5, Tot. Refills 5, Maintenance, test 2 times a day, 04/18/16 13:44:18, DM2, E11.65, Compound Start Date: 04/18/16 Stop Date: 10/15/16 Status: OrderedFreestyle Lite Monitor See Instructions, # 1 units, Maintenance, Use to check BG 2 times/day, 12/23/18 14:30:03 EST, DxE11.65, Compound Start Date: 12/23/18 Status: OrderedFreestyle Lite Test Strips See Instructions, # 60 each, Refills 11, Tot. Refills 11, Maintenance, Use to check BG 2 times/day, 12/23/18 14:30:06 EST, DxE11.65, Compound Start Date: 12/23/18 Status: Orderedhydrochlorothiazide-lisinopril 12.5 mg-20 mg oral tablet 1 tablet, By Mouth, Daily, # 30 tablet, 0 Refills, Maintenance, 12/23/18 13:07:59 EST, Tablet Start Date: 12/23/18 Status: Orderedibuprofen 600 mg oral tablet 1 tablet = 600 mg, By Mouth, 3 times a day, PRN Pain , Mild, # 30 tablet, 0 Refills, Maintenance, Tablet Start Date: 12/26/10 Status: Orderedlisinopril 40 mg oral tablet 1 tablet = 40 mg, By Mouth, Daily, 0 Refills, Maintenance Start Date: 11/04/10 Status: OrderedmetFORMIN 500 mg oral tablet 2 tablet = 1,000 mg, By Mouth, 2 times a day, Take 2 tablets twice daily. E11.65, # 120 tablet, 11 Refills, Maintenance, 01/11/20 15:38:00 EST, Tablet, [facility]/pharmacy #[id number], DM 2, E11.65, 160, cm, 01/11/20 15:20:00 EST, Height, 99.7, kg, 08/25/18 13:37:... Start Date: 01/11/20 Stop Date: 01/05/21 Status: OrderedOzempic (1 mg dose) 2 mg/1.5 mL subcutaneous solution = 1 mg, Subcutaneous Injection, Every week, Take 1mg once weekly. E11.65, # 3 mL, 11 Refills, Maintenance, 01/11/20 15:38:00 EST, Solution, [facility]/pharmacy #[id number], 160, cm, 01/11/20 15:20:00 EST, Height, 99.7, kg, 08/25/18 13:37:00 EDT, Dry Weight Start Date: 01/11/20 Status: Ordered Problem List Condition Effective Dates Status Health Status Informant HTN - Hypertension(Confirmed) Active Morbid obesity(Confirmed) Active Uncomplicated ventral incisional Active hernia(Confirmed) Social History Social History Type Response Smoking Status Never smoker entered on: 10/01/15 Sex
--- OUTSIDE RECORDS SUMMARY | 2022-09-03 14:33 | XMS_ITS | Continuity of Care Document ---
:1980 Author Organization [facility] Address [address] [place] [id number]- Care Team Providers Name Role Phone Maite ARAGON, Tanya Arzate Primary Care Physician Encounter [facility] [place] Date(s): 07/23/22 - 08/22/22 [facility] Endocrinology and Diabetes [address] [place] [id number] Attending Physician: Trip Reid Admitting Physician: Trip Reid Referring Physician: Trip Reid Referring Physician: Linda Amanda NP Allergies, Adverse Reactions, Alerts No Known Allergies Immunizations Given and Recorded Vaccine Date Status [...] 10/01/15 5:42:11, Powder Start Date: 10/01/15 Status: Orderedatorvastatin 10 mg oral tablet 1 tablet = 10 mg, By Mouth, Daily at bedtime, Take 1 tablet daily at bedtime., # 30 tablet, 11 Refills, Maintenance, 02/17/22 11:26:00 EDT, [facility]/pharmacy #[id number], Partial fill upon patient request if the prescription is for a schedule II opioid drug., 16... Start Date: 02/17/22 Status: Ordereddocusate sodium 100 mg oral capsule 1 capsule = 100 mg, By Mouth, 2 times a day, # 30 capsule, 0 Refills, Maintenance, Capsule Start Date: 12/26/10 Status: OrderedFreestyle Lite Lancets See Instructions, # 100 each, Refills 11, Tot. Refills 11, Maintenance, Use to check BG 2 times/day.E11.65., 08/26/21 12:06:00 EDT, Supply, 160, cm, 08/26/21 11:23:00 EDT, Height Start Date: 08/26/21 Stop Date: 08/21/22 Status: OrderedFreestyle Lite Monitor See Instructions, # 1 each, Maintenance, Use to check BG 2 times/day. E11.65., 08/26/21 12:05:00 EDT, DxE11.65, Compound, 160, cm, 08/26/21 11:23:00 EDT, Height Start Date: 08/26/21 Status: OrderedFreestyle Lite Test Strips See Instructions, # 100 each, Refills 11, Tot. Refills 11, Maintenance, Use to check BG 2 times/day.E11.65., 08/26/21 12:06:00 EDT, Supply, 160, cm, 08/26/21 11:23:00 EDT, Height Start Date: 08/26/21 Stop Date: 08/21/22 Status: Orderedhydrochlorothiazide-lisinopril 12.5 mg-20 mg oral tablet [...] Date: 11/04/10 Status: OrderedmetFORMIN 500 mg oral tablet, extended release 4 tablet = 2,000 mg, By Mouth, Daily in AM, Take 4 tablets daily in the morning. E11.65., # 120 tablet, 11 Refills, Maintenance, 01/29/22 14:24:00 EDT, ER Tablet, [facility]/pharmacy #[id number], Partial fill upon patient request if the prescription is for a sched... Start Date: 01/29/22 Status: Orderedsemaglutide 2.4 mg/0.75 mL (2.4 mg dose) subcutaneous solution = 2.4 mg, Subcutaneous Infusion, Every 7 days, Take 2.4mg once weekly. E11.65., # 3 mL, 5 Refills, Maintenance, 03/25/22 14:30:00 EDT, [facility]/pharmacy #[id number], Partial fill upon patient request if the prescription is for a schedule II opioid drug., 160, cm... Start Date: 03/25/22 Status: Ordered Problem List Condition Confirmation Course Effective Dates Status Health I nformant Status HTN - Hypertension Confirmed Active Morbid obesity Confirmed Active Obese class II Confirmed Active Uncomplicated Confirmed Active ventral incisional hernia Social History Social History Type Response Smoking Status Never smoker entered on: 10/01/15 Sex Patient Care team information PersonnelName: Tanya Arora NP Address: Address: [address] [place] [id number]
--- OUTSIDE RECORDS SUMMARY | 2022-09-03 14:33 | XMS_ITS | Continuity of Care Document ---
:1980 Author Organization [facility] Address [address] [place] [address]- Care Team Providers Name Role Phone Jose SIFUENTES, Kiko Og Primary Care Physician [phone] [place] [facility] [place] 06[place]/20 [facility] Endocrinology and Diabetes [address] [place] [id number] [facility] Attending Physician: Trip Reid Admitting Physician: Trip Reid Referring Physician: tr, ArSerg Referring Physician: Linda Amanda NP Allergies, Adverse Reactions, Alerts Substance Reaction Severity [...] 11 Refills, Maintenance, 01/11/20 15:38:00 EST, Tablet, [facility]/pharmacy #[id number], DM 2, E11.65, 160, cm, 01/11/20 15:20:00 EST, Height, 99.7, kg, 08/25/18 13:37:... Start Date: 01/11/20 Stop Date: 01/05/21 Status: OrderedOzempic (1 mg dose) 2 mg/1.5 mL subcutaneous solution = 1 mg, Subcutaneous Injection, Every week, Take 1mg once weekly. E11.65, # 3 mL, 11 Refills, Maintenance, 01/11/20 15:38:00 EST, Solution, [facility]/pharmacy #[id number], 160, cm, 01/11/20 15:20:00 EST, Height, 99.7, kg, 08/25/18 13:37:00 EDT, Dry Weight Start Date: 01/11/20 Status: Ordered Problem List Condition Effective Dates Status Health Status Informant HTN - Hypertension(Confirmed) Active Morbid obesity(Confirmed) Active Uncomplicated ventral incisional Active hernia(Confirmed) Social History Social History Type Response Smoking Status Never smoker entered on: 10/01/15 Sex
--- OUTSIDE RECORDS SUMMARY | 2022-09-03 14:33 | XMS_ITS | Continuity of Care Document ---
:1980 Author Organization [facility] Address [address] [place] [phone]- Care Team Providers Name Role Phone Maite ARAGON, Tanya Arzate Primary Care Physician [place] [facility] [place](s): 06/25/22 - 07/25/22 [facility] Endocrinology and Diabetes [address] [place] [id number] Allergies, Adverse Reactions, Alerts No Known Allergies [...] tablet, 11 Refills, Maintenance, 02/17/22 11:26:00 EDT, [facility]/pharmacy #[id number], Partial fill upon patient request if the [...] Refills, Maintenance, 01/29/22 14:24:00 EDT, ER Tablet, [facility]/pharmacy #[id number], Partial fill upon patient request if the prescription is for a sched... Start Date: 01/29/22 Status: Orderedsemaglutide 2.4 mg/0.75 mL (2.4 mg dose) subcutaneous solution = 2.4 mg, Subcutaneous Infusion, Every 7 days, Take 2.4mg once weekly. E11.65., # 3 mL, 5 Refills, Maintenance, 03/25/22 14:30:00 EDT, [facility]/pharmacy #[id number], Partial fill upon patient request if the prescription is for a schedule II opioid drug., 160, cm... Start Date: 03/25/22 Status: Ordered Problem List Condition Effective Dates Status Health Status Informant HTN - Hypertension(Confirmed) Active Morbid obesity(Confirmed) Active Obese class II(Confirmed) Active Uncomplicated ventral incisional Active hernia(Confirmed) Social History Social History Type Response Smoking Status Never smoker entered on: 10/01/15 Sex Care Team PersonnelName: Tanya Arora NP Address: [address] [place] [id number]
--- OUTSIDE RECORDS SUMMARY | 2022-09-03 14:33 | XMS_ITS | Continuity of Care Document ---
:1980 Author Organization [facility] Address [address] [place] [phone] Care Team Providers Name Role Phone Kiko Garcia MD Primary Care Physician Encounter [facility] [place] Date(s): 07/10/21 - 08/09/21 [facility] Endocrinology and Diabetes [address] [place] [id number] Allergies, Adverse Reactions, Alerts Substance Reaction Severity [...] 04/18/16 Stop Date: 10/15/16 Status: OrderedFreestyle Lite Lancets See Instructions, # 60 each, Refills 11, Tot. Refills 11, Maintenance, Use to check BG 2 times/day, 12/23/18 14:30:13 EST, DxE11.65, Compound Start Date: 12/23/18 Status: OrderedFreestyle Lite Monitor See Instructions, # [...] 11/04/10 Status: OrderedmetFORMIN 500 mg oral tablet 4 tablet = 2,000 mg, By Mouth, Daily in AM, E11.65, # 360 tablet, 4 Refills, Maintenance, 04/18/21 13:51:00 EDT, Tablet, [facility]/pharmacy #[id number], DM 2, E11.65, 160, cm, 04/18/21 13:07:00 EDT, Height Start Date: 04/18/21 Stop Date: 07/12/22 Status: OrderedOzempic 2 mg/1.5 mL (1 mg dose) subcutaneous solution = 1 mg, Subcutaneous Infusion, Every 7 days, Take 1mg once weekly on the same day. E11.65., # 3 mL, 5 Refills, Maintenance, 05/15/21 16:46:00 EDT, [facility]/pharmacy #[id number], 1 mg Subcutaneous Infusion Every 7days,Instr:Take 1mg once weekly on the same day.... Start Date: 05/15/21 Status: Ordered Problem List Condition Effective Dates Status Health Status Informant HTN - Hypertension(Confirmed) Active Morbid obesity(Confirmed) Active Uncomplicated ventral incisional Active hernia(Confirmed) Social History Social History Type Response Smoking Status Never smoker entered on: 10/01/15 Sex
--- OUTSIDE RECORDS SUMMARY | 2022-09-03 14:33 | XMS_ITS | Continuity of Care Document ---
:1980 Author Organization [facility] Address [address] [place] [id number]- Care Team Providers Name Role Phone Tanya Arora NP Primary Care Physician [place] [facility] [place]): 05/22/22 - 08/22/22 [facility] [address] [place] [id number] Attending Physician: Sophy Santos MD Admitting Physician: Sophy Santos MD Referring Physician: Tanya Arroa NP Allergies, Adverse Reactions, Alerts No Known [...] tablet, 11 Refills, Maintenance, 02/17/22 11:26:00 EDT, [facility]/pharmacy #[id number], Partial fill upon patient request [...] Refills, Maintenance, 01/29/22 14:24:00 EDT, ER Tablet, [facility]/pharmacy #[id number], Partial fill upon patient request if the prescription is for a sched... Start Date: 01/29/22 Status: Orderedsemaglutide 2.4 mg/0.75 mL (2.4 mg dose) subcutaneous solution = 2.4 mg, Subcutaneous Infusion, Every 7 days, Take 2.4mg once weekly. E11.65., # 3 mL, 5 Refills, Maintenance, 03/25/22 14:30:00 EDT, [facility]/pharmacy #[id number], Partial fill upon patient request [...] information PersonnelName: Tanya Arora NP Address: Address: [address] [place] [id number]
--- OUTSIDE RECORDS SUMMARY | 2022-09-03 14:33 | XMS_ITS | Continuity of Care Document ---
:1980 Author Organization [facility] Address [address] [place] [address]- Care Team Providers Name Role Phone Kiko Garcia MD Primary Care Physician Encounter [facility] [place] Date(s): 05/15/21 - 06/14/21 [facility] [address] [place] [id number] Allergies, Adverse Reactions, Alerts Substance Reaction Severity [...] 4 Refills, Maintenance, 04/18/21 13:51:00 EDT, Tablet, [facility]/pharmacy #[id number], DM 2, E11.65, 160, cm, 04/18/21 13:07:00 EDT, Height Start Date: 04/18/21 Stop Date: 07/12/22 Status: OrderedOzempic 2 mg/1.5 mL (1 mg dose) subcutaneous solution = 1 mg, Subcutaneous Infusion, Every 7 days, Take 1mg once weekly on the same day. E11.65., # 3 mL, 5 Refills, Maintenance, 05/15/21 16:46:00 EDT, [facility]/pharmacy #[id number], 1 mg Subcutaneous Infusion Every 7days,Instr:Take 1mg once weekly on the same day.... Start Date: 05/15/21 Status: Ordered Problem List Condition Effective Dates Status Health Status Informant HTN - Hypertension(Confirmed) Active Morbid obesity(Confirmed) Active Uncomplicated ventral incisional Active hernia(Confirmed) Social History Social History Type Response Smoking Status Never smoker entered on: 10/01/15 Sex
--- OUTSIDE RECORDS SUMMARY | 2022-09-03 14:33 | XMS_ITS | Continuity of Care Document ---
:1980 Author Organization [facility] Address [address] [place] [address]- Care Team Providers Name Role Phone Kiko Garcia MD Primary Care Physician [place] [facility] [place]28/20 [facility] [address] [place] [id number]- [facility] Attending Physician: Sea Llamas MD [...] Refills, Maintenance, 01/11/20 15:38:00 EST, Tablet, [facility]/pharmacy #[id number], DM 2, E11.65, 160, cm, 01/11/20 [...]
[2022-09-03 16:36] LABS: MANUAL DIFF FLAG NO
[2022-09-03 16:39] VITALS: BP 183/104; PULSE 84; RESP 18; TEMP 37; O2SAT 97
[2022-09-03 16:41] LABS: Basophils Percent Auto 0.3 % (0-2); Eosinophils Absolute Auto 0.1 X10*3/uL (0.0-0.4); Eosinophils Percent Auto 1.4 % (0-4); Hematocrit 42.8 % (37.0-47.0); Hemoglobin 14.3 g/dl (12.0-16.0); Imm Gran Abs Auto 0.04 X10*3/uL (0.00-0.03); Imm Gran Pct Auto 0.6 % (0.0-0.4); Lymphocytes Absolute Auto 2.3 X10*3/uL (1.2-4.9); Lymphocytes Percent Auto 32.8 % (20-40); Mean Corpuscular HGB Conc 33.4 g/dl (31.0-35.0); Mean Corpuscular Hemoglobin 29.2 pg (27.0-33.0); Mean Corpuscular Volume 87.5 fL (80.0-98.0); Mean Platelet Volume 9.5 fL (9.4-12.3); Monocytes Absolute Auto 0.5 X10*3/uL (0.1-1.2); Monocytes Percent Auto 6.9 % (2-11); Neutrophils Absolute Auto 4.1 x10*3/uL (2.0-8.3); Platelet Count 324 X10*3/uL (160-400); Red Blood Count 4.89 X10*6/uL (4.20-5.50); White Blood Count 7.1 X10*3/uL (4.8-10.8)
[2022-09-03] MEDS: hydroCHLOROthiazide 12.5 MG TABLET PO (16:51)
[2022-09-03 16:52] LABS: Anion Gap 15 (12-20); Blood Urea Nitrogen 18 mg/dL (9-16); Calcium 9.5 mg/dL (8.4-10.2); Carbon Dioxide 23 mmol/L (22-29); Chloride 105 mmol/L (96-108); Creatinine Clr Calc Pharmacy 72.8; Estimated Glomerular Filt Rate 49; Glucose Random 151 mg/dL (60-115); Potassium 4.1 mmol/L (3.3-5.1); Sodium 139 mmol/L (135-145)
[2022-09-03] MEDS: lisinopriL 20 MG TABLET PO (16:52)
[2022-09-03] MEDS: diazePAM 2 MG TABLET 5 MG PO (16:53)
[2022-09-03] MEDS: iohexoL 350 MG/ML 100 ML INFUS..BTL IV (17:34)
[2022-09-03 19:09] VITALS: BP 144/91
== END 2022-09-03 19:17 | disposition home or self-care (01) ==
PROVIDERS: Physician Assistant; Emergency Provider Emergency Medicine; PCP Hospitalist
DX: M62.838 Other muscle spasm (principal); R51.9 Headache, unspecified; M54.2 Cervicalgia; I10 Essential (primary) hypertension; E11.9 Type 2 diabetes mellitus without complications; Z79.84 Long term (current) use of oral hypoglycemic drugs; Z79.899 Other long term (current) drug therapy
CPT/HCPCS: 36415; 70491; 72125; 80048; 85025; 99284; Q9967

== ENCOUNTER 2023-09-22 13:47 | Outpatient (AMB) | payer OTHER, SELFPAY ==
--- NOTE | 2023-09-22 13:49 | A.OFFVIS_ITS ---
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 Required: No Information Interpreted: non-clinical & clinical Accompanied by: Self / Same As Patient Allergies codeine [CODEINE] Allergy (Severe, Verified 09/22/23 13:52) SWELLING doxycycline [DOXYCYCLINE] Allergy (Severe, Verified 09/22/23 13:52) SWELLING guaifenesin [From ROBITUSSIN] Allergy (Intermediate, Verified 09/22/23 13:52) DIFFICULTY BREATHING antibiotic not sure which one Allergy (Mild, Uncoded 09/22/23 13:52) swollen face Is last menstrual period known: No (mirena) HPI HPI Comments History of Present Illness Details The patient is presenting to discuss different options of control including tubal sterilization. Mirena IUD was inserted 14 years ago [facility] Medical History DARIN (obstructive sleep apnea) GERD (gastroesophageal reflux disease) Diabetes mellitus Asthma Anxiety HTN (hypertension) Umbilical hernia Surgical History Hx of bilateral breast reduction surgery History of esophagogastroduodenoscopy (EGD) H/O section History of appendectomy H/O eye surgery History of tonsillectomy Family History Mother HTN (hypertension) Diabetes Father Heart disease Social History Household Members: Spouse and Children Housing: House Alcohol intake: current Alcohol intake frequency: other Patient Tobacco Use Status: Never used Tobacco e-Cigarette/Vaping Use: Never Used Second Hand Smoke Exposure: No service: No Current occupational status: employed 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 Current occupational exposures/hazards: No Female Reproductive History Menstrual control method: progestin IUCD Review of Systems Const All systems reviewed & are unremarkable except as noted in HPI and below Reports as per HPI and Reports no additional complaints GI Reports no additional complaints Reports no additional complaints Physical Exam Vital Signs: Last Vital Signs BP 132/100 H 09/22/23 13:51 BMI result Body Mass Index 37.0 Assessment & Plan Assessment & Plan (1) Family planning: Code(s): Z30.09 - Encounter for other general counseling and advice on contraception Plan: Discussed with the patient the different options of control including control pills/Nuvaring, DMPA, different types of IUD ?s ( cu vs progesterone) , sterilization. All the pros, cons, risks and benefits of each were discussed with the patient. 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 Instructions given the patient to the backup method for control since Mirena IUD is FDA approved for 8 years for contraception and her Mirena IUD was inserted 14 years ago up therefore she should not depend on her current IUD for demographic analyst, in addition instructed the patient to schedule screening mammogram since Mirena IUD is associated with an elevated risk of breast cancer. All questions answered, the patient verbalized understanding and agreed with the plan Coding Level of Care Code New Pt Level 3 (53882) Diagnoses Family planning Z30.09
[2023-09-22 13:51] VITALS: BP 132/100; BMI 37.0
== END 2023-09-22 15:16 | disposition home or self-care (01) ==
PROVIDERS: PCP Nurse Practitioner Family; Visit Provider Obstetrics & Gynecology
DX: Z30.09 Encounter for other general counseling and advice on contraception (principal)
CPT/HCPCS: 99203

== ENCOUNTER → 2023-09-22 13:47 | Outpatient (BNVA) | payer OTHER, SELFPAY | PROVIDERS: PCP Nurse Practitioner Family; Visit Provider Obstetrics & Gynecology | DX: Z30.09 Encounter for other general counseling and advice on contraception (principal) | CPT/HCPCS: 99202 ==

== ENCOUNTER 2024-01-06 10:35 | Outpatient (AMB) | payer OTHER, SELFPAY ==
[2024-01-06 10:36] VITALS: BP 160/100; PULSE 95; RESP 13; TEMP 36.3; O2SAT 99; BMI 37.8
--- NOTE | 2024-01-06 10:36 | A.OFFPC_ITS ---
Vital Signs 01/06/24 10:36 01/06/24 11:33 Height 5 ft 3 in Weight 213 lb 4 oz BMI 37.8 BP 160/100 H 142/70 H Blood Pressure Location Rt brachial Lt brachial Position Sitting Sitting Respiration 13 Pulse 95 Pulse Source Pulse Oximeter Temp 97.4 F Temp Source Temporal Artery Scan Pulse Oximetry (%) 99 Oxygen Delivery Method Room Air Intake Visit Reasons: GRZEGORZ from rachelle Family Law Attorney Required: No Accompanied by: Self / Same As Patient Allergies codeine [CODEINE] Allergy (Severe, Verified 01/06/24 10:45) SWELLING doxycycline [DOXYCYCLINE] Allergy (Severe, Verified 01/06/24 10:45) SWELLING Medication List - Last Reconciled 01/06/24 by Aviva Ribeiro, PHARMACY TECHNOLOGY INSTRUCTOR- cholecalciferol (vitamin D3) (Vitamin D3) 25 mcg PO DAILY lisinopril-hydrochlorothiazide 20-12.5 mg 1 tab PO DAILY 1 month metformin ER 1,000 mg PO BID semaglutide (weight loss) (Wegovy) 2.4 mg subcut QWEEK Tobacco use date assessed: 01/06/24 Dental Screening Dental Screen Date: 01/06/24 Did you have a dental visit in the last 12 months?: Yes Did you have a dental problem in the last 6 months where you did not have access to dental care?: No Was dental information given to patient?: Patient has dentist HPI HPI Comments History of Present Illness Details 43-year-old female with obesity, hyperte nsion, diabetes type 2, obstructive sleep apnea, GERD, mild intermittent asthma, ROSALBA, H. pylori, gallstones, constipation, umbilical hernia, cervical spondylosis, lumbar spine DJD, ovarian cyst Status post bilat breast reduction in 2004, EGD in [address] Dr. Dejesus, x2, appendectomy, tonsillectomy, hernia repair with mesh Specialists GI Mathematical Engineer General surgery ENT Ophthalmology [facility]. Endocrinology* no longer active. Will manage here. Health maintenance Mammogram 02/14/2022 within normal limits, ordered today EGD/colonoscopy February of 2021 positive tubular adenomas, focal active colitis Diabetic eye exam 06/25/2022 at [facility]. Negative for diabetic retinopathy. Positive for hypertensive retinopathy bilat Vaccines - declines flu; UTD on Tdap HgA1c done today 7.9% Here today to est care Admits to falling out care; she is ready to get back on track Concerned about heart d/t uncontrolled HTN. Reports palps. Holter monitor and EKG done in the past. Reports she remains active w/ [facility]. Will make an eye exam, knows she is overdue. DM2 - no longer active w [facility] endo d/t insurance issues. A1c trending up. 7.4% last year. 7.9% today. On Metformin ER 1000mg BID and Wegovy. PA required for Wegovy. Has been on this for > 5 years. [facility] Medical History DARIN (obstructive sleep apnea) GERD (gastroesophageal reflux disease) Diabetes mellitus Asthma Anxiety HTN (hypertension) Umbilical hernia Surgical History Hx of bilateral breast reduction surgery History of esophagogastroduodenoscopy (EGD) H/O section History of appendectomy H/O eye surgery History of tonsillectomy Family History Mother HTN (hypertension) Diabetes Father Heart disease Social History Household Members: Spouse and Children Housing: House Alcohol intake: current Alcohol intake frequency: other Patient Tobacco Use Status: Never used Tobacco e-Cigarette/Vaping Use: Never Used Second Hand Smoke Exposure: No service: No Current occupational status: employed 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 1. Little interest or pleasure in doing things: nearly every day 2. Feeling down, depressed, or hopeless: not at all 3. Trouble falling or staying asleep, or sleeping too much: nearly every day 4. Feeling tired or having little energy: not at all 5. Poor appetite or overeating: not at all 6. Feeling bad about yourself - or that you are a failure or have let yourself or your family down: not at all 7. Trouble concentrating on things, such as reading the newspaper or watching television: several days 8. Moving or speaking so slowly that other people could have noticed. Or the opposite - being so fidgety or restless that you have been moving around a lot more than usual: not at all 9. Thoughts that you would be better off or of hurting yourself in some way: not at all Total score: 7 Depression Screening Interpretation: Positive Depression Screening Follow-up: Existing condition Depression Screening Done: Yes 72922 - PHQ-9 Billing: Yes Source: Developed by Drs. Saud Cantu, Lalitha Loco, Evaristo cShultz and colleagues, with an educational deon from [employer]. Thrive Questionnaire Date Thrive assessed: 01/06/24 I am a: Patient What is your living situation today?: I have a steady place to live Within the past 12 months, did the food you bought not last and you didn't have the money to get more?: Never true Within the past 12 months, did you worry whether your food would run out before you got money to buy more?: Never true Do you have trouble paying for medicines?: No Do you have trouble getting transportation to medical appointments?: No Do you have trouble paying your heating and electricity bill?: No Do you have trouble taking care of your child, family member or friend?: No Do you have trouble with day-to-day activities such as bathing, preparing meals, shopping, managing finances, etc.?: No Are you currently unemployed and looking for a job?: No Are you interested in more education?: No Please select the resources that you would like help with: None Currently or been in a relationship where the following occur: no concerns reported THRIVE Score: 0 AUDIT C Alcohol Use Questionnaire (AUDIT-C) 1. How often do you have a drink containing alcohol?: Never 3. How often do you have six or more drinks on one occasion?: Never Total Score: 0 Score Reviewed/Action Taken: Yes ROSALBA-7 AMB Questionnaire ROSALBA-7 Date ROSALBA - 7 assessed: 01/06/24 Feeling nervous, anxious, or on edge: 2 = More than half the days Not being able to stop or control worryin = Nearly every day Worrying too much about different things: 3 = Nearly every day Trouble relaxin = Nearly every day Being so restless that it is hard to sit still: 3 = Nearly every day Becoming easily annoyed or irritable: 0 = Not at all Feeling afraid as if something awful might happen: 0 = Not at all Total ROSALBA-7 score (0-4 normal; 5-9 mild; 10-14 moderate; 15-21 severe): 14 Source: Developed by Drs. Saud Cantu, Lalitha Loco, Evaristo Schultz and colleagues, with an educational deon from [employer]. ROSALBA-7 Assessment Billing ROSALBA-7 Assessment Tool: ROSALBA-7 Assessment 35463 ACT Questionnaire In the past 4 weeks, how much of the time did your asthma keep you from getting as much done at work, school or at home?: None of the time During the past 4 weeks, how often did your asthma symptoms wake you up at night or earlier than usual in the morning?: Not at all During the past 4 weeks, how often have you had to use your rescue inhaler or nebulizer medication?: Not at all How would you rate your asthma control during the past 4 weeks?: Completely controlled Score: 20 Review of Systems Const All systems reviewed & are unremarkable except as noted in HPI and below Physical exam (Primary Care) Vital Signs: Last Vital Signs Temp 97.4 F 01/06/24 10:36 Pulse 95 01/06/24 10:36 Resp 13 01/06/24 10:36 BP 142/70 H 01/06/24 11:33 Pulse Ox 99 01/06/24 10:36 Oxygen Delivery Method Room Air 01/06/24 10:36 BMI result Body Mass Index 37.8 BMI Assessment/Plan discussion: High BMI High, discussed plan: lifestyle Tobacco/Smoking Status: Tobacco use Status Tobacco use date assessed 01/06/24 01/06/24 10:57 Patient Tobacco Use Status Never used Tobacco 01/06/24 10:43 e-Cigarette/Vaping Use Never Used 01/06/24 10:43 PHQ-9: PHQ-9 Score PHQ-9: Total score 7 01/06/24 11:33 Depression Screening Interpretation: Positive Depression Screening Follow-up: Existing condition Thrive Assessment: Date of Thrive Assessment Date Thrive assessed 01/06/24 01/06/24 10:57 Currently or been in a relationship where the following occur: no concerns reported Const Other: awake, alert scleras nonicteric bilat MMM RRR LS CTAB Abd soft, nontender BLE skin intact, PP WNL, vibratory sensation and monofilament testing WNL bilat Office Procedures Diabetic Foot Exam G9226 - Diabetic Foot Exam Results AMB Hemoglobin A1c AMB Hemoglobin A1c 7.9 % Last Edit by Jodi Zuniga MA on 01/06/24 11:32 Results Reviewed Results Reviewed: Laboratory Last Values Hgb A1c (Clinic) 7.9 % (4.0-6.0) H 01/06/24 11:31 Assessment and Plan Assessment & Plan (1) Diabetes mellitus type 2 with complications: Comment: hg1a1c 7.9% today. On Metformin and Wegovy. Due for DM eye exam, advised to schedule STACEY on ACEI Code(s): E11.8 - Type 2 diabetes mellitus with unspecified complications (2) Mild intermittent asthma in adult without complication: Comment: seasonal allergies trigger sx. No maintenance inhalers Code(s): J45.20 - Mild intermittent asthma, uncomplicated (3) Hypertension complicating diabetes: Comment: goal <130/80 On lisinopril/hctz 20-12.5 QD. BP > goal today. Check labs, RTO 1 week to review and optimize treatment Code(s): E11.59 - Type 2 diabetes mellitus with other circulatory complications; I15.2 - Hypertension secondary to endocrine disorders (4) Generalized anxiety disorder: Comment: on vistaril 25mg in the past, not effective, however increase to 50mg caused sedation. interested in discussing alternatives at next visit Code(s): F41.1 - Generalized anxiety disorder (5) Hypertensive retinopathy of both eyes: Comment: noted on exam 2021. Advised to fu with Optho Code(s): H35.033 - Hypertensive retinopathy, bilateral (6) Class 2 severe obesity due to excess calories with serious comorbidity and body mass index (BMI) of 37.0 to 37.9 in adult: Comment: life style mods Code(s): E66.01 - Morbid (severe) obesity due to excess calories; Z68.37 - Body mass index [BMI] 37.0-37.9, adult Plan 45 min spent with patient, this includes f2f time and chart review and documentation Orders: Orders MM tomosynthesis screening BI Today Z12.31 - Encounter for screening mammogram for malignant neoplasm of breast LDL Cholesterol Direct Today E11.59 - Type 2 diabetes mellitus with other circulatory complications, E11.8 - Type 2 diabetes mellitus with unspecified complications, E66.01 - Morbid (severe) obesity due to excess calories, F41.1 - Generalized anxiety disorder, H35.033 - Hypertensive retinopathy, bilateral, I15.2 - Hypertension secondary to endocrine disorders, J45.20 - Mild intermittent asthma, uncomplicated, Z68.37 - Body mass index [BMI] 37.0-37.9, adult AMB Diabetic Foot Exam Today E11.8 - Type 2 diabetes mellitus with unspecified complications Comprehensive Met. Panel Today E11.59 - Type 2 diabetes mellitus with other circulatory complications, E11.8 - Type 2 diabetes mellitus with unspecified complications, E66.01 - Morbid (severe) obesity due to excess calories, F41.1 - Generalized anxiety disorder, H35.033 - Hypertensive retinopathy, bilateral, I15.2 - Hypertension secondary to endocrine disorders, J45.20 - Mild intermittent asthma, uncomplicated, Z68.37 - Body mass index [BMI] 37.0-37.9, adult Microalbumin, Random (w Creat) Today E11.59 - Type 2 diabetes mellitus with other circulatory complications, E11.8 - Type 2 diabetes mellitus with unspecified complications, E66.01 - Morbid (severe) obesity due to excess calories, F41.1 - Generalized anxiety disorder, H35.033 - Hypertensive retinopathy, bilateral, I15.2 - Hypertension secondary to endocrine disorders, J45.20 - Mild intermittent asthma, uncomplicated, Z68.37 - Body mass index [BMI] 37.0-37.9, adult TSH reflex Free T4 Today E11.59 - Type 2 diabetes mellitus with other circulatory complications, E11.8 - Type 2 diabetes mellitus with unspecified complications, E66.01 - Morbid (severe) obesity due to excess calories, F41.1 - Generalized anxiety disorder, H35.033 - Hypertensive retinopathy, bilateral, I15.2 - Hypertension secondary to endocrine disorders, J45.20 - Mild intermittent asthma, uncomplicated, Z68.37 - Body mass index [BMI] 37.0-37.9, adult Vitamin D 1,25 dihydroxy Today E11.59 - Type 2 diabetes mellitus with other circulatory complications, E11.8 - Type 2 diabetes mellitus with unspecified complications, E66.01 - Morbid (severe) obesity due to excess calories, F41.1 - Generalized anxiety disorder, H35.033 - Hypertensive retinopathy, bilateral, I15.2 - Hypertension secondary to endocrine disorders, J45.20 - Mild intermittent asthma, uncomplicated, Z68.37 - Body mass index [BMI] 37.0-37.9, adult Vitamin B12 and Folate Today E11.59 - Type 2 diabetes mellitus with other circulatory complications, E11.8 - Type 2 diabetes mellitus with unspecified complications, E66.01 - Morbid (severe) obesity due to excess calories, F41.1 - Generalized anxiety disorder, H35.033 - Hypertensive retinopathy, bilateral, I15.2 - Hypertension secondary to endocrine disorders, J45.20 - Mild intermittent asthma, uncomplicated, Z68.37 - Body mass index [BMI] 37.0-37.9, adult AMB Hemoglobin A1c Today E11.8 - Type 2 diabetes mellitus with unspecified complications Review Flu Vaccine not done: patient reason Coding Level of Care Code Est Pt Level 5 (85975) Diagnoses Diabetes mellitus type 2 with complications E11.8 Mild intermittent asthma in adult without complication J45.20 Hypertension complicating diabetes E11.59; I15.2 Generalized anxiety disorder F41.1 Hypertensive retinopathy of both eyes H35.033 Class 2 severe obesity due to excess calories with serious comorbidity and body mass index (BMI) of 37.0 to 37.9 in adult E66.01; Z68.37 CPT Codes Diabetic Foot Exam - CPT: G9226 - Diabetic Foot Exam ([id number]) Additional Codes ROSALBA-7 Assessment Billing - ROSALBA-7 Assessment Tool: ROSALBA-7 Assessment 92740 ([id number])
[2024-01-06 11:33] VITALS: BP 142/70
== END 2024-01-06 12:06 | disposition home or self-care (01) ==
PROVIDERS: PCP Nurse Practitioner Family; Visit Provider Nurse Practitioner Family
DX: E11.8 Type 2 diabetes mellitus with unspecified complications (principal); E11.59 Type 2 diabetes mellitus with other circulatory complications; Z68.37 Body mass index [BMI] 37.0-37.9, adult; E66.01 Morbid (severe) obesity due to excess calories; J45.20 Mild intermittent asthma, uncomplicated; I15.2 Hypertension secondary to endocrine disorders; F41.1 Generalized anxiety disorder; H35.033 Hypertensive retinopathy, bilateral
CPT/HCPCS: 83036; 99215; G9226

== ENCOUNTER 2024-01-06 11:46 | Outpatient (REF) | payer OTHER, SELFPAY ==
[2024-01-06 16:07] LABS: Folate 7.9 ng/mL (> or = 4.0); Vitamin B12 775 pg/mL (200-900)
[2024-01-06 17:40] LABS: Creatinine Urine 73.05 mg/dL; Microalbum/Creatinine Ratio Ur 8.2 ug/mg cr (<30)
[2024-01-06 17:56] LABS: Alanine Aminotransferase 14 U/L (0-31); Albumin Level 4.2 g/dL (3.5-5.0); Alkaline Phosphatase 76 U/L (39-117); Anion Gap 10 (12-20); Aspartate Amino Transferase 13 U/L (5-31); Bilirubin Total 0.2 mg/dL (0.0-1.0); Blood Urea Nitrogen 11 mg/dL (9-16); Calcium 9.6 mg/dL (8.4-10.2); Carbon Dioxide 29 mmol/L (22-29); Chloride 101 mmol/L (96-108); Estimated Glomerular Filt Rate > 60; Glucose Random 128 mg/dL (60-115); Potassium 3.7 mmol/L (3.3-5.1); Sodium 136 mmol/L (135-145); TSH reflex Free T4 1.11 uIU/mL (0.32-4.0); Total Protein 7.5 g/dL (6.5-8.0)
[2024-01-07 13:23] LABS: LDL Cholesterol Direct 133 mg/dL (<100)
[2024-01-11 11:59] LABS: VITAMIN D (1,25 OH) D3 34 pg/mL; Vit D (1,25-Dihydroxy) Total 34 pg/mL (18-72); Vitamin D (1,25 OH) D2 <8 pg/mL
== END 2024-01-06 11:47 | disposition home or self-care (01) ==
LOC: HO.WFDLDS 11:46
PROVIDERS: Visit Provider Nurse Practitioner Family
DX: E66.01 Morbid (severe) obesity due to excess calories (principal); F41.1 Generalized anxiety disorder; H35.033 Hypertensive retinopathy, bilateral; J45.20 Mild intermittent asthma, uncomplicated; E11.59 Type 2 diabetes mellitus with other circulatory complications; I15.2 Hypertension secondary to endocrine disorders; Z68.37 Body mass index [BMI] 37.0-37.9, adult
CPT/HCPCS: 36415; 80053; 82043; 82570; 82607; 82652; 82746; 83721; 84443

== ENCOUNTER 2024-01-20 15:48 | Outpatient (AMB) | payer OTHER, SELFPAY ==
--- NOTE | 2024-01-20 15:48 | MHC.PC.OV ---
Intake Visit Reasons: fu labs/discuss meds Intake Note: Patient is here to follow up on labs/medication Promotional Advertising Assistant Required: No Allergies codeine [CODEINE] Allergy (Severe, Verified 01/20/24 16:16) SWELLING doxycycline [DOXYCYCLINE] Allergy (Severe, Verified 01/20/24 16:16) SWELLING Medication List - Last Reconciled 01/20/24 by Aviva Ribeiro, [facility] cholecalciferol (vitamin D3) (Vitamin D3) 25 mcg PO DAILY lisinopril-hydrochlorothiazide 20-12.5 mg 1 tab PO DAILY 1 month metformin ER 1,000 mg PO BID semaglutide (weight loss) (Wegovy) 2.4 mg subcut QWEEK Tobacco use date assessed: 01/20/24 HPI HPI Comments History of Present Illness Details Given the COVID-19 pandemic, the patient was offered and has consented to a telemedicine visit with Aviva Molina NP 01/20/24 1600in lieu of a traditional in-office visit. Patient understands the risks, alternatives and benefits of a telemedicine visit. The patient has been informed of the limitations of a telemedicine visit, including the quality of self-reported information (e.g. vital signs and symptoms) as well as the inability to perform a hands-on physical exam by a healthcare provider. Patient understands that a traditional in-office visit may be required based on the findings of today's telemedicine visit. Patient also understands that their insurance will be billed for services rendered and that a copayment may be required. 43-year-old female with obesity, hypertension, diabetes type 2, obstructive sleep apnea, GERD, mild intermittent asthma, ROSALBA, H. pylori, gallstones, constipation, umbilical hernia, cervical spondylosis, lumbar spine DJD, ovarian cyst Status post bilat breast reduction in 2004, EGD [place] 2019 Dr. 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 Negative for diabetic retinopathy. Positive for hypertensive retinopathy bilat FU on labs & chronic conditions Labs 12/2023 direct LDL 123, normal Vit D Taking Vit d supplement cont to co GI sx, severe GERD with vomiting, feels like she doesnt digest medications, vomiting contents she ate. In regards to anxiety she does not feel like she needs anything to help control her anxiety. Feels like she is managing well. Admits to poor sleep at times. He is using [id number] medications with positive effect. Plan: STOP Wegovy fu 2 weeks [facility] Medical History (Updated 01/20/24 @ 16:52 by Aviva Ribeiro, [facility]) DARIN (obstructive sleep apnea) GERD (gastroesophageal reflux disease) Diabetes mellitus Asthma Anxiety HTN (hypertension) Umbilical hernia Surgical History Hx of bilateral breast reduction surgery History of esophagogastroduodenoscopy (EGD) H/O section History of appendectomy H/O eye surgery History of tonsillectomy Family History Mother HTN (hypertension) Diabetes Father Heart disease Social History Household Members: Spouse and Children Housing: House Alcohol intake: current Alcohol intake frequency: other Patient Tobacco Use Status: Never used Tobacco e-Cigarette/Vaping Use: Never Used Second Hand Smoke Exposure: No service: No Current occupational status: employed 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 How often do you have a drink containing alcohol?: Never 3. How often do you have six or more drinks on one occasion?: Never Total Score: 0 Score Reviewed/Action Taken: Yes ROSALBA-7 AMB Questionnaire ROSALBA-7 Date ROSALBA - 7 assessed: 01/06/24 Source: Developed by Drs. Saud Cantu, Lalitha Loco, Evaristo Schultz and colleagues, with an educational deon from [employer]. Physical exam (Primary Care) Tobacco/Smoking Status: Tobacco use Status Tobacco use date assessed 01/20/24 01/20/24 15:50 Patient Tobacco Use Status Never used Tobacco 01/20/24 15:50 e-Cigarette/Vaping Use Never Used 01/20/24 15:50 Thrive Assessment: Date of Thrive Assessment Date Thrive assessed 01/06/24 01/20/24 15:50 Telehealth Telehealth Location of provider rendering services: practice address Location of patient: address on file Patient Identification confirmed using: Name, : Yes Telehealth method: voice only (android ) Patient verbally consented to treatment: Yes Patient verbally consented to billing insurance company: Yes Patient informed of any privacy concerns related to visit: Yes Minutes spent on Phone/Video with Pt.: 15 Assessment and Plan Assessment & Plan (1) Generalized anxiety disorder: Comment: on vistaril 25mg in the past, not effective, however increase to 50mg caused sedation. Not interested in medications at this time. Code(s): F41.1 - Generalized anxiety disorder (2) Diabetes mellitus type 2 with complications: Comment: hg1a1c 7.9% . On Metformin and Wegovy. Due for DM eye exam, advised to schedule STACEY on ACEI Having GI symptoms of severe GERD, vomiting, retained stomach contents. Query side effect of Wegovy. We will have her hold the wegovy for 2 weeks. Follow up by phone and see if her GI symptoms have resolved. Code(s): E11.8 - Type 2 diabetes mellitus with unspecified complications (3) GERD (gastroesophageal reflux disease): Comment: Hold Wegovy to see if symptoms improve follow up in 2 weeks. Code(s): K21.9 - Gastro-esophageal reflux disease without esophagitis Qualifiers: Esophagitis presence: without esophagitis Qualified Code(s): K21.9 - Gastro-esophageal reflux disease without esophagitis Plan Message sent to office staff to schedule telehealth appointment with me in 2 weeks to follow up on the GI symptoms with Wegovy on hold. Coding Level of Care Code Tele Est Pt Level 2 (76506) Diagnoses Generalized anxiety disorder F41.1 Diabetes mellitus type 2 with complications E11.8 Gastroesophageal reflux disease without esophagitis K21.9 Esophagitis presence: without esophagitis
== END 2024-01-20 16:37 | disposition home or self-care (01) ==
LOC: HO.HMGFM 15:48
PROVIDERS: PCP Nurse Practitioner Family; Visit Provider Nurse Practitioner Family
DX: F41.1 Generalized anxiety disorder (principal); E11.8 Type 2 diabetes mellitus with unspecified complications; K21.9 Gastro-esophageal reflux disease without esophagitis
CPT/HCPCS: 99212

== ENCOUNTER 2024-02-02 16:20 | Outpatient (REF) | payer OTHER, SELFPAY ==
--- NOTE | ~2024-02-02 | MM_ITS ---
EXAMINATION: MM SCREENING DIGITAL BREAST TOMOSYNTHESIS, BILATERAL CLINICAL INFORMATION: Screening. Asymptomatic. The patient is status post bilateral breast reduction. COMPARISON: Mammography: This study is compared with prior exams dating back to 2021. TECHNIQUE: Digital breast tomosynthesis is performed in both the craniocaudal and mediolateral oblique views along with computer-aided detection (CAD). Synthesized 2D images are generated from the tomosynthesis. FINDINGS: There are scattered areas of fibroglandular density (ACR BI-RADS breast composition Category b). Post reduction changes are present in each breast. There no are no significant masses, abnormal calcifications, or other abnormalities. MM/MM tomosynthesis screening BI IMPRESSION: No mammographic evidence of malignancy. ASSESSMENT: BI-RADS BI-RADS 2 - Benign Findings RECOMMENDATION: Routine annual mammography screening. 1 year F/U This examination should not preclude the clinical evaluation of a suspicious palpable abnormality. This patient's information was entered into a reminder system with a target due date for their next mammogram.
== END 2024-02-02 16:21 | disposition home or self-care (01) ==
LOC: HO.MAMMO 16:20
PROVIDERS: PCP Nurse Practitioner Family; Visit Provider Nurse Practitioner Family
DX: Z12.31 Encounter for screening mammogram for malignant neoplasm of breast (principal)
CPT/HCPCS: 77063; 77067

== ENCOUNTER → 2024-02-02 16:30 | Outpatient (BNV) | payer OTHER, SELFPAY | PROVIDERS: PCP Nurse Practitioner Family; Visit Provider Radiology Diagnostic Radiology | DX: Z12.31 Encounter for screening mammogram for malignant neoplasm of breast (principal) | CPT/HCPCS: 77063; 77067 ==

== ENCOUNTER 2024-03-29 10:28 | Outpatient (AMB) | payer OTHER, SELFPAY ==
--- NOTE | 2024-03-29 10:22 | A.OFFPC_ITS ---
Intake Visit Reasons: discussion of medications Intake Note: Patient would like to get an alternative medication for wegovy due to insurance not giving full quantity and charging her over $1000. Personalization Specialist Required: No Accompanied by: Self / Same As Patient Allergies codeine [CODEINE] Allergy (Severe, Verified 03/29/24 13:25) SWELLING doxycycline [DOXYCYCLINE] Allergy (Severe, Verified 03/29/24 13:25) SWELLING Seasonal Allergies Allergy (Intermediate, Verified 03/29/24 13:25) Runny Nose Medication List - Last Reconciled 03/29/24 by Aviva Ribeiro, [facility] cholecalciferol (vitamin D3) (Vitamin D3) 25 mcg PO DAILY lisinopril-hydrochlorothiazide 20-12.5 mg 1 tab PO DAILY 1 month metformin ER 1,000 mg PO BID semaglutide (weight loss) (Wegovy) 2.4 mg subcut QWEEK Tobacco use date assessed: 01/20/24 Dental Screening Dental Screen Date: 01/06/24 HPI HPI Comments History of Present Illness Details 43-year-old female with obesity, hyperte nsion, diabetes type 2, obstructive sleep apnea, GERD, mild intermittent asthma, ROSALBA, H. pylori, gallstones, constipation, umbilical hernia, cervical spondylosis, lumbar spine DJD, ovarian cyst Status post bilat breast reduction in 2004, EGD in 2019 Dr. Dejesus, x2, appendectomy, tonsillectomy, hernia repair with mesh Telehealth visit today to follow up complaints of GI symptoms, severe GERD with vomiting and feeling like she does not digest medications, vomiting contents that she ate. At the last visit she was advised to stop the Wegovy to see if her symptoms improved. She did withhold Wegovy for 2 weeks and her GI symptoms resolved. She went away and was not able to follow up in a timely fashion and so restarted her Wegovy and her symptoms returned. The refill on Wegovy had an out of pocket cost of $1000. She is tolerating the metformin and taking as directed. Her last A1c was 7.9% 01/06/2024. She has not tolerated any of the SGLT2 due to infections. She has tried and failed these in the past. The GLP1s she has tried all of them and for 1 reason or another she has not been able to tolerate and or the insurance would not cover. She has not been on any DDP4 inhibitors and therefore I do recommend that she start Janumet XR 50 mg/1000 mg 2 tablets p.o. q.p.m.. This medication does require a prior authorization. I have asked the staff to start working on this. Patient was advised to discontinue Wegovy as well as her metformin. Lab orders have been placed to check her A1c, CMP as well as get an updated lipid profile. I would like to follow up with her in 4 weeks to discuss her tolerance of the medication as well as review her labs. She wishes for a telehealth follow up visit. I have sent a note to the front office staff to arrange this visit. [facility] Medical History (Updated 03/29/24 @ 13:51 by Aviva Ribeiro, [facility]) DARIN (obstructive sleep apnea) GERD (gastroesophageal reflux disease) Diabetes mellitus Asthma Anxiety HTN (hypertension) Umbilical hernia Surgical History Hx of bilateral breast reduction surgery History of esophagogastroduodenoscopy (EGD) H/O section History of appendectomy H/O eye surgery History of tonsillectomy Family History Mother HTN (hypertension) Diabetes Father Heart disease Social History Household Members: Spouse and Children Housing: House Alcohol intake: current Alcohol intake frequency: other Patient Tobacco Use Status: Never used Tobacco e-Cigarette/Vaping Use: Never Used Second Hand Smoke Exposure: No service: No Current occupational status: employed 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 Saud Cantu, Lalitha Loco, Evaristo Schultz and colleagues, with an educational deon from [employer]. Physical exam (Primary Care) Tobacco/Smoking Status: Tobacco use Status Tobacco use date assessed 01/20/24 03/29/24 10:26 Patient Tobacco Use Status Never used Tobacco 03/29/24 10:26 e-Cigarette/Vaping Use Never Used 03/29/24 10:26 Thrive Assessment: Date of Thrive Assessment Date Thrive assessed 01/06/24 03/29/24 10:26 Telehealth Telehealth Telehealth Platform: Telephone Location of provider rendering services: practice address Location of patient: address on file Patient Identification confirmed using: Name, : Yes Telehealth method: voice only Patient verbally consented to treatment: Yes Patient verbally consented to billing insurance company: Yes Patient informed of any privacy concerns related to visit: Yes Minutes spent on Phone/Video with Pt.: 15 Assessment and Plan Assessment & Plan (1) GERD (gastroesophageal reflux disease): Comment: Improved with cessation of Wegovy. Discontinue Wegovy. Code(s): K21.9 - Gastro-esophageal reflux disease without esophagitis Qualifiers: Esophagitis presence: without esophagitis Qualified Code(s): K21.9 - Gastro-esophageal reflux disease without esophagitis (2) Diabetes mellitus type 2 with complications: Comment: hg1a1c 7.9% . 01/06/2024 Due for DM eye exam, advised to schedule STACEY on ACEI Intolerant GI side effects from Wegovy. Start Janumet XR 50 mg/1000 mg 2 tabs PO q.p.m.. Recheck A1c and CMP along with lipid profile. Follow up in 4 weeks. Advised to discontinue metformin as well as Wegovy. PA required for Janumet XR<, I have asked the staff to work on this. Code(s): E11.8 - Type 2 diabetes mellitus with unspecified complications Orders: Orders Hemoglobin A1c Today E11.8 - Type 2 diabetes mellitus with unspecified compl ications, K21.9 - Gastro-esophageal reflux disease without esophagitis Vitamin B12 Today E11.8 - Type 2 diabetes mellitus with unspecified complications, K21.9 - Gastro-esophageal reflux disease without esophagitis Lipid Panel Today E11.8 - Type 2 diabetes mellitus with unspecified complications, K21.9 - Gastro-esophageal reflux disease without esophagitis Comprehensive [place]. Panel Fast Today E11.8 - Type 2 diabetes mellitus with unspecified complications, K21.9 - Gastro-esophageal reflux disease without esophagitis Medications: New sitagliptin phos-metformin 50-1,000 mg ER 2 tabs PO QPM 60 tabs 1RF Patient Instructions: Telehealth visit follow up in 4 weeks. Please get fasting labs done before this visit so that we may discuss. Discontinue metformin along with Wegovy. Start new medication as directed. Coding Level of Care Code Tele Est Pt Level 2 (81346) Diagnoses Gastroesophageal reflux disease without esophagitis K21.9 Esophagitis presence: without esophagitis Diabetes mellitus type 2 with complications E11.8
== END 2024-03-29 13:52 | disposition home or self-care (01) ==
LOC: HO.HMGFM 10:28
PROVIDERS: PCP Nurse Practitioner Family; Visit Provider Nurse Practitioner Family
DX: K21.9 Gastro-esophageal reflux disease without esophagitis (principal); E11.8 Type 2 diabetes mellitus with unspecified complications
CPT/HCPCS: 99212

== ENCOUNTER → 2024-07-05 15:31 | Outpatient (BNVA) | payer OTHER, SELFPAY | PROVIDERS: PCP Nurse Practitioner Family; Visit Provider Physician Assistant Surgical ==

== ENCOUNTER 2024-07-27 13:12 | Outpatient (AMB) | payer OTHER, SELFPAY ==
--- NOTE | 2024-07-27 13:18 | MHC.PC.OV ---
Vital Signs 07/27/24 13:19 07/27/24 16:48 Height 5 ft 3 in Weight 213 lb BMI 37.7 BP 122/74 Blood Pressure Location Rt brachial Position Sitting Respiration 14 Pulse 103 H 90 Pulse Source Pulse Oximeter Auscultation Pulse Oximetry (%) 96 Oxygen Delivery Method Room Air Intake Visit Reasons: dm follow up Intake Note: follow up Allergies codeine [CODEINE] Allergy (Severe, Verified 07/27/24 13:29) SWELLING doxycycline [DOXYCYCLINE] Allergy (Severe, Verified 07/27/24 13:29) SWELLING Seasonal Allergies Allergy (Intermediate, Verified 07/27/24 13:29) Runny Nose Medication List - Last Reconciled 07/27/24 by Aviva Ribeiro, [facility]- cholecalciferol (vitamin D3) (Vitamin D3) 25 mcg PO DAILY lisinopril-hydrochlorothiazide 20-12.5 mg 1 tab PO DAILY 1 month metformin ER 1,000 mg PO DAILY Tobacco use date assessed: 01/20/24 Dental Screening Dental Screen Date: 01/06/24 HPI HPI Comments History of Present Illness Details 43-year-old female with obesity, hypertension, diabetes type 2, obstructive sleep apnea, GERD, mild intermittent asthma, ROSALBA, H. pylori, gallstones, constipation, umbilical hernia, cervical spondylosis, lumbar spine DJD, ovarian cyst Status post bilat breast reduction in 2004, EGD [place] 2019 Dr. 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 Negative for diabetic retinopathy. Positive for hypertensive retinopathy bilat Pap 05/24/21 Tdap 2012, declined Flu declined Here today to re-est care after losing her insurance Was taking her husbands Metformin ER 1000mg when she didnt have insurance She was not able to start the combo med sitagliptin metformin 50-1000mg 2 tabs po QPM cont to take BP meds as directed She will be moving to [place] next year She is active w/ bariatrics to have wt loss surgery. 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 trouble getting the first one in, very painful, wonders about conscious sedation or the like for removal and replacment. Labs 12/2023 direct LDL 123, normal Vit D Exam awake, alert scleras nonicteric bilat MMM RRR LS CTAB Abd soft, nontender BLE skin intact, PP WNL, vibratory sensation and monofilament testing WNL bilat Plan schedule fu with NETWORK DEVELOPER, referral placed today check labs today, change meds as needed to get a1c at goal cont fu with care team cont bp medication RTO for CPE in Nov, sooner PRN This note is constructed using voice recognition software. While every effort has been made to ensure accuracy in nuclear criticality safety engineer, still errors may have been included Sometimes, these errors may affect the content or meaning of the given sentence . Total time spent caring for the patient today was 45 minutes. This includes time spent before the visit reviewing the chart, time spent during the visit, and time spent after the visit on documentation [facility] Medical History (Updated 07/27/24 @ 16:49 by Aviva Ribeiro, [facility]) DARIN (obstructive sleep apnea) GERD (gastroesophageal reflux disease) Diabetes mellitus Asthma Anxiety HTN (hypertension) Umbilical hernia Surgical History Hx of bilateral breast reduction surgery History of esophagogastroduodenoscopy (EGD) H/O section History of appendectomy H/O eye surgery History of tonsillectomy Family History Mother HTN (hypertension) Diabetes Father Heart disease Social History Household Members: Spouse and Children Housing: House Alcohol intake: current Alcohol intake frequency: other Patient Tobacco Use Status: Never used Tobacco e-Cigarette/Vaping Use: Never Used Second Hand Smoke Exposure: No service: No Current occupational status: employed 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 Depression Screening Interpretation: Positive Depression Screening Follow-up: Existing condition Depression Screening Done: Yes Source: Developed by Drs. Saud L. Lalitha Cantu, Evaristo Schultz and colleagues, with an educational deon from [employer]. Thrive Questionnaire Date Thrive assessed: 01/06/24 THRIVE Score: 0 ROSALBA-7 AMB Questionnaire ROSALBA-7 Date ROSALBA - 7 assessed: 01/06/24 Source: Developed by Lalitha Brown, Evaristo Schultz and colleagues, with an educational deon from [employer]. Physical exam (Primary Care) Vital Signs: Last Vital Signs Pulse 103 H 07/27/24 13:19 Resp 14 07/27/24 13:19 BP 122/74 07/27/24 13:19 Pulse Ox 96 07/27/24 13:19 Oxygen Delivery Method Room Air 07/27/24 13:19 BMI result Body Mass Index 37.7 BMI Assessment/Plan discussion: High BMI High, discussed plan: lifestyle Tobacco/Smoking Status: Tobacco use Status Tobacco use date assessed 01/20/24 07/27/24 13:21 Patient Tobacco Use Status Never used Tobacco 07/27/24 13:21 e-Cigarette/Vaping Use Never Used 07/27/24 13:21 Depression Screening Interpretation: Positive Depression Screening Follow-up: Existing condition Thrive Assessment: Date of Thrive Assessment Date Thrive assessed 01/06/24 07/27/24 13:21 Office Procedures Diabetic Foot Exam G9226 - Diabetic Foot Exam Assessment and Plan Assessment & Plan (1) Diabetes mellitus type 2 with complications: Comment: hg1a1c 7.9% . 01/06/2024 Due for DM eye exam, advised to schedule STACEY on ACEI Intolerant GI side effects from Wegovy. Janumet XR 50 mg/1000 mg 2 tabs PO q.p.m.. not covered by insurance Recheck A1c and CMP along with lipid profile. Cont Metformin ER 1000mg until labs reviewed. Code(s): E11.8 - Type 2 diabetes mellitus with unspecified complications (2) Hypertension complicating diabetes: Comment: goal <130/80 On lisinopril/hctz 20-12.5 QD. BP at goal today. Code(s): E11.59 - Type 2 diabetes mellitus with other circulatory complications; I15.2 - Hypertension secondary to endocrine disorders (3) Encounter for management of intrauterine contraceptive device (IUD): Code(s): Z30.431 - Encounter for routine checking of intrauterine contraceptive device Qualifiers: IUD management: unspecified Qualified Code(s): Z30.431 - Encounter for routine checking of intrauterine contraceptive device (4) Class 2 severe obesity due to excess calories with serious comorbidity and body mass index (BMI) of 37.0 to 37.9 in adult: Comment: life style mods Code(s): E66.01 - Morbid (severe) obesity due to excess calories; Z68.37 - Body mass index [BMI] 37.0-37.9, adult (5) Hypertensive retinopathy of both eyes: Comment: noted on exam 2021. Advised to fu with Optho Code(s): H35.033 - Hypertensive retinopathy, bilateral Orders: Orders Hemoglobin A1c Today E11.59 - Type 2 diabetes mellitus with other circulatory complications, E11.8 - Type 2 diabetes mellitus with unspecified complications, I15.2 - Hypertension secondary to endocrine disorders Microalbumin, Random (w Creat) Today E11.59 - Type 2 diabetes mellitus with other circulatory complications, E11.8 - Type 2 diabetes mellitus with unspecified complications, I15.2 - Hypertension secondary to endocrine disorders Vitamin B12 and Folate Today E11.59 - Type 2 diabetes mellitus with other circulatory complications, E11.8 - Type 2 diabetes mellitus with unspecified complications, I15.2 - Hypertension secondary to endocrine disorders Vitamin D 25-OH Total Today E11.59 - Type 2 diabetes mellitus with other circulatory complications, E11.8 - Type 2 diabetes mellitus with unspecified complications, I15.2 - Hypertension secondary to endocrine disorders Comprehensive Met. 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 Z30.431 - Encounter for routine checking of intrauterine contraceptive device Medications: Discontinued sitagliptin phos-metformin 50-1,000 mg ER Discontinued Reason: Insurance Denied 2 tabs PO QPM 60 tabs 1RF Review Patient declined Pneumococcal Vaccine: 07/27/24 Flu Vaccine not done: patient reason Declined TDap/Td: 07/27/24 Coding Level of Care Code Est Pt Level 5 (05978) Complex EM visit Add On G2211 Diagnoses Diabetes mellitus type 2 with complications E11.8 Hypertension complicating diabetes E11.59; I15.2 Encounter for management of intrauterine contraceptive device (IUD), unspecified IUD management type Z30.431 IUD management: unspecified Class 2 severe obesity due to excess calories with serious comorbidity and body mass index (BMI) of 37.0 to 37.9 in adult E66.01; Z68.37 Hypertensive retinopathy of both eyes H35.033 CPT Codes Diabetic Foot Exam - CPT: G9226 - Diabetic Foot Exam ([id number])
[2024-07-27 13:19] VITALS: BP 122/74; PULSE 103; RESP 14; O2SAT 96; BMI 37.7
[2024-07-27 16:48] VITALS: PULSE 90
== END 2024-07-27 16:17 | disposition home or self-care (01) ==
PROVIDERS: PCP Nurse Practitioner Family; Visit Provider Nurse Practitioner Family
DX: E11.8 Type 2 diabetes mellitus with unspecified complications (principal); E11.59 Type 2 diabetes mellitus with other circulatory complications; E66.01 Morbid (severe) obesity due to excess calories; Z68.37 Body mass index [BMI] 37.0-37.9, adult; I15.2 Hypertension secondary to endocrine disorders; Z30.431 Encounter for routine checking of intrauterine contraceptive device; H35.033 Hypertensive retinopathy, bilateral

== ENCOUNTER → 2024-07-27 13:12 | Outpatient (BNVA) | payer OTHER, SELFPAY | PROVIDERS: PCP Nurse Practitioner Family; Visit Provider Nurse Practitioner Family | DX: E11.59 Type 2 diabetes mellitus with other circulatory complications (principal); I15.2 Hypertension secondary to endocrine disorders; H35.033 Hypertensive retinopathy, bilateral; E66.01 Morbid (severe) obesity due to excess calories; Z68.37 Body mass index [BMI] 37.0-37.9, adult; Z71.3 Dietary counseling and surveillance | CPT/HCPCS: 99212 ==

== ENCOUNTER 2024-07-29 07:49 | Outpatient (AMB) | payer OTHER, SELFPAY ==
--- NOTE | 2024-07-29 13:59 | MHC.OFFVISWM ---
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 Allergies codeine [CODEINE] Allergy (Severe, Verified 07/29/24 14:00) SWELLING doxycycline [DOXYCYCLINE] Allergy (Severe, Verified 07/27/24 13:29) SWELLING Seasonal Allergies Allergy (Intermediate, Verified 07/27/24 13:29) Runny Nose Medication List - Last Reconciled 07/29/24 by Ashwin El MD cholecalciferol (vitamin D3) (Vitamin D3) 25 mcg PO DAILY lisinopril-hydrochlorothiazide 20-12.5 mg 1 tab PO DAILY 1 month metformin ER 1,000 mg PO DAILY HPI 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: Details: Start time: 1.58pm, End time: 2.28pm ?I spent 25 minutes speaking with the patient on the phone plus an additional 5 minutes reviewing and updating records for a total of 30 minutes HPI Comments Details: Previous weight loss efforts: Wegovy: lost 11lbs, Ozempic Wakes up: 8am, Sleeps: 11pm Breakfast: 9.30am (eggs and cheese) Lunch: 1pm (tuna with crackers) Dinner: 6pm (rice, salmon, chicken) Snacks: rarely 3pm (crackers with jelly), 9pm (corn flakes) Exercise: none Fluids: coffee: 2 cups/day (creamer), tea: occasionally, soda: none, juice: none, ETOH: none PFSH Medical History (Updated 07/29/24 @ 14:23 by Ashwin El MD) BMI 37.0-37.9, adult DARIN (obstructive sleep apnea) GERD (gastroesophageal reflux disease) Diabetes mellitus Asthma Anxiety HTN (hypertension) Umbilical hernia Surgical History Hx of bilateral breast reduction surgery History of esophagogastroduodenoscopy (EGD) H/O section History of appendectomy H/O eye surgery History of tonsillectomy Family History Mother HTN (hypertension) Diabetes Father Heart disease Social History Household Members: Spouse and Children Housing: House Alcohol intake: current Alcohol intake frequency: other Patient Tobacco Use Status: Never used Tobacco e-Cigarette/Vaping Use: Never Used Second Hand Smoke Exposure: No service: No Current occupational status: employed 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 Current occupational exposures/hazards: No Cognitive needs: No Hearing needs: No Vision needs: No Telehealth Telehealth Telehealth Platform: Telephone Location of provider rendering services: practice address Location of patient: address on file Patient Identification confirmed using: Name, : Yes Telehealth method: voice only Patient verbally consented to treatment: Yes Patient verbally consented to billing insurance company: Yes Patient informed of any privacy concerns related to visit: Yes Minutes spent on Phone/Video with Pt.: 30 Assessment & Plan Assessment & Plan (1) Obesity: Code(s): E66.9 - Obesity, unspecified Category: Medical Qualifiers: Obesity type: due to excess calories Obesity classification: adult class 2 (BMI 35 - 39.9) Serious obesity comorbidity presence: with serious comorbidity Body mass index: BMI 37.0-37.9 Qualified Code(s): E66.01 - Morbid (severe) obesity due to excess calories; Z68.37 - Body mass index [BMI] 37.0-37.9, adult Plan: 1.? Plan for lap sleeve gastrectomy. If diaphragmatic or ventral hernias are present at time of surgery, these will be repaired laparoscopically as well. Risks and complications include possible conversion to an open procedure, anastomotic leak, bleeding requiring transfusion, small bowel obstruction, , DVT and pulmonary embolism, cardiac, or pulmonary complications, as fpc complications such as anastomotic ulcer, insufficient weight loss and vitamin deficiencies. I emphasized the importance of close follow-up, adherence to instructions and good communication. 2. Nutritional counseling. Start with 2 CELEBRATE REBUILD protein (buy at [facility]) shakes (HALF scoop EACH in 8oz low fat unsweetened almond milk each) at 9am-11am and 12pm-2pm, 1 protein bar (CELEBRATE protein bars, buy at [facility]) at 3pm-5pm, dinner at 6pm (8 forks of protein and 8 forks of salad/vegetables) AND one more protein bar after dinner at 8pm-10pm. So you do 2 protein shakes, 2 protein bars and one meal per day. Meal to include lean meat (beef, fish, pork, turkey, chicken), or icelandic yogurt, or egg whites, or beans with a salad with olive oil and fruits (berries, pears, apples, kiwi). Avoid salt, breads, potatoes, rice, pasta, desserts. 3. Each shake would be drunk slowly, like coffee in a period of 2 hours. 4. Cut each bar in 4 pieces and eat each piece in 30min ?to make each bar last 2 hours. 5. I emphasized the importance of measuring accurately the food portion and measure it when serving the food in plate 6. The meal portions include 8 full-size forks of meat and 8 full-size forks of salad. You always eat the meat portion but you can replace up to 4 forks for salad/vegetables with rice, potatoes or pasta, or a fruit ?if you like. The less you do it the better weight loss will be. 7. One full-size fork is what it can be scooped on the fork without falling aside and not what can be bit with the fork. Use regular forks like those you find in a typical restaurant. 8.? Please send me weight measurements as soon as possible and then once a week. Always include your diet and exercise plan. 9. Start walking outside daily, tracking calories with a goal of 300 calories per day, daily. Goal is to burn 2000 calories per week on exercise, which means either 300 calories daily, or 400 calories 5 days per week, or 500 calories 4 days per week, or 650 calories 3 days per week. 10. The best choice would be to purchase a stationary bike, elliptical or treadmill at home that can track calories. Let me know if you do so I can give you an exercise plan. 11.?It is important of avoiding and for at least 18 months postoperatively and has been discussed at the infosession. 12. Goal is to lose at least 1.5-2lbs per week 13. Goal to lose 10% of your weight before surgery, which is about 21lbs. Ultimate weight goal: 192lbs before surgery 14. Please follow the diet plan exactly without any change. If you don't like something about the plan or you feel hungry you need to communicate with me so I can help you revise the plan. You should not change the plan yourself. 15. To be scheduled for EGD due to history of GERD. The possibility of biopsies was discussed. Patient needs to avoid use of NSAIDs and aspirin for 1 week prior to EGD. Risks of perforation and bleeding was discussed with the patient. This will be an outpatient procedure with IV sedation. Orders: Orders Complete Blood Count Auto Diff Today E11.59 - Type 2 diabetes mellitus with other circulatory complications, E11.8 - Type 2 diabetes mellitus with unspecified complications, I15.2 - Hypertension secondary to endocrine disorders, Z68.37 - Body mass index [BMI] 37.0-37.9, adult C Reactive Protein Today E11.59 - Type 2 diabetes mellitus with other circulatory complications, E11.8 - Type 2 diabetes mellitus with unspecified complications, I15.2 - Hypertension secondary to endocrine disorders, Z68.37 - Body mass index [BMI] 37.0-37.9, adult Vitamin A Today E11.59 - Type 2 diabetes mellitus with other circulatory complications, E11.8 - Type 2 diabetes mellitus with unspecified complications, I15.2 - Hypertension secondary to endocrine disorders, Z68.37 - Body mass index [BMI] 37.0-37.9, adult TSH reflex Free T4 Today E11.59 - Type 2 diabetes mellitus with other circulatory complications, E11.8 - Type 2 diabetes mellitus with unspecified complications, I15.2 - Hypertension secondary to endocrine disorders, Z68.37 - Body mass index [BMI] 37.0-37.9, adult Vitamin D 25-OH Total Today E11.59 - Type 2 diabetes mellitus with other circulatory complications, E11.8 - Type 2 diabetes mellitus with unspecified complications, I15.2 - Hypertension secondary to endocrine disorders, Z68.37 - Body mass index [BMI] 37.0-37.9, adult US abdomen comp w elastography Today E11.59 - Type 2 diabetes mellitus with other circulatory complications, E11.8 - Type 2 diabetes mellitus with unspecified complications, I15.2 - Hypertension secondary to endocrine disorders, Z68.37 - Body mass index [BMI] 37.0-37.9, adult ECG 12 lead EKG Today E11.59 - Type 2 diabetes mellitus with other circulatory complications, E11.8 - Type 2 diabetes mellitus with unspecified complications, I15.2 - Hypertension secondary to endocrine disorders, Z68.37 - Body mass index [BMI] 37.0-37.9, adult FL upper GI w air Today E11.59 - Type 2 diabetes mellitus with other circulatory complications, E11.8 - Type 2 diabetes mellitus with unspecified complications, I15.2 - Hypertension secondary to endocrine disorders, Z68.37 - Body mass index [BMI] 37.0-37.9, adult Insulin Today E11.59 - Type 2 diabetes mellitus with other circulatory complications, E11.8 - Type 2 diabetes mellitus with unspecified complications, I15.2 - Hypertension secondary to endocrine disorders, Z68.37 - Body mass index [BMI] 37.0-37.9, adult Hemoglobin A1c Today E11.59 - Type 2 diabetes mellitus with other circulatory complications, E11.8 - Type 2 diabetes mellitus with unspecified complications, I15.2 - Hypertension secondary to endocrine disorders, Z68.37 - Body mass index [BMI] 37.0-37.9, adult H Pylori Breath Test Today E11.59 - Type 2 diabetes mellitus with other circulatory complications, E11.8 - Type 2 diabetes mellitus with unspecified complications, I15.2 - Hypertension secondary to endocrine disorders, Z68.37 - Body mass index [BMI] 37.0-37.9, adult Lipid Panel Today E11.59 - Type 2 diabetes mellitus with other circulatory complications, E11.8 - Type 2 diabetes mellitus with unspecified complications, I15.2 - Hypertension secondary to endocrine disorders, Z68.37 - Body mass index [BMI] 37.0-37.9, adult IRON PROFILE Today E11.59 - Type 2 diabetes mellitus with other circulatory complications, E11.8 - Type 2 diabetes mellitus with unspecified complications, I15.2 - Hypertension secondary to endocrine disorders, Z68.37 - Body mass index [BMI] 37.0-37.9, adult Comprehensive Met. Panel Today E11.59 - Type 2 diabetes mellitus with other circulatory complications, E11.8 - Type 2 diabetes mellitus with unspecified complications, I15.2 - Hypertension secondary to endocrine disorders, Z68.37 - Body mass index [BMI] 37.0-37.9, adult Vitamin B12 and Folate Today E11.59 - Type 2 diabetes mellitus with other circulatory complications, E11.8 - Type 2 diabetes mellitus with unspecified complications, I15.2 - Hypertension secondary to endocrine disorders, Z68.37 - Body mass index [BMI] 37.0-37.9, adult Zinc Today E11.59 - Type 2 diabetes mellitus with other circulatory complications, E11.8 - Type 2 diabetes mellitus with unspecified complications, I15.2 - Hypertension secondary to endocrine disorders, Z68.37 - Body mass index [BMI] 37.0-37.9, adult Vitamin B1 Today E11.59 - Type 2 diabetes mellitus with other circulatory complications, E11.8 - Type 2 diabetes mellitus with unspecified complications, I15.2 - Hypertension secondary to endocrine disorders, Z68.37 - Body mass index [BMI] 37.0-37.9, adult Ferritin Today E11.59 - Type 2 diabetes mellitus with other circulatory complications, E11.8 - Type 2 diabetes mellitus with unspecified complications, I15.2 - Hypertension secondary to endocrine disorders, Z68.37 - Body mass index [BMI] 37.0-37.9, adult XR chest 2V Today E11.59 - Type 2 diabetes mellitus with other circulatory complications, E11.8 - Type 2 diabetes mellitus with unspecified complications, I15.2 - Hypertension secondary to endocrine disorders, Z68.37 - Body mass index [BMI] 37.0-37.9, adult Referrals Behavioral Health Referral E11.59 - Type 2 diabetes mellitus with other circulatory complications, E11.8 - Type 2 diabetes mellitus with unspecified complications, I15.2 - Hypertension secondary to endocrine disorders, Z68.37 - Body mass index [BMI] 37.0-37.9, adult Nutrition/Dietitian Referral E11.59 - Type 2 diabetes mellitus with other circulatory complications, E11.8 - Type 2 diabetes mellitus with unspecified complications, I15.2 - Hypertension secondary to endocrine disorders, Z68.37 - Body mass index [BMI] 37.0-37.9, adult
[2024-07-29 14:14] VITALS: BMI 37.7
== END 2024-07-29 14:29 | disposition home or self-care (01) ==
LOC: HO.HBS 07:49
PROVIDERS: PCP Nurse Practitioner Family; Visit Provider Surgery
DX: E66.01 Morbid (severe) obesity due to excess calories (principal); Z68.37 Body mass index [BMI] 37.0-37.9, adult
CPT/HCPCS: 99203

== ENCOUNTER → 2024-07-29 07:49 | Outpatient (BNVA) | payer OTHER, SELFPAY | PROVIDERS: PCP Nurse Practitioner Family; Visit Provider Surgery ==

== ENCOUNTER 2024-08-04 09:34 | Outpatient (REF) | payer OTHER, SELFPAY ==
[2024-08-04 11:04] LABS: Estimated Average Glucose 246 mg/dL; Hemoglobin A1c % 10.2 % (<6.0); Total Hemoglobin (HGBA1C) 3432.3696 umol/L
[2024-08-04 11:24] LABS: Alanine Aminotransferase 31 U/L (0-31); Albumin Level 4.1 g/dL (3.5-5.0); Alkaline Phosphatase 69 U/L (39-117); Anion Gap 11 (12-20); Aspartate Amino Transferase 18 U/L (5-31); Bilirubin Total 0.4 mg/dL (0.0-1.0); Blood Urea Nitrogen 15 mg/dL (9-16); Calcium 9.3 mg/dL (8.4-10.2); Carbon Dioxide 26 mmol/L (22-29); Chloride 103 mmol/L (96-108); Estimated Glomerular Filt Rate > 60; Glucose Random 284 mg/dL (60-115); Sodium 136 mmol/L (135-145); Total Protein 7.1 g/dL (6.5-8.0)
[2024-08-04 11:40] LABS: Creatinine Urine 167.11 mg/dL; Microalbum/Creatinine Ratio Ur 11.3 ug/mg cr (<30)
[2024-08-04 11:42] LABS: Vitamin D 25-OH Total 35.4 ng/mL (>30)
[2024-08-04 11:52] LABS: Folate 12.6 ng/mL (> or = 4.0); Vitamin B12 772 pg/mL (200-900)
[2024-08-05 12:34] LABS: LDL Cholesterol Direct 159 mg/dL (<100)
== END 2024-08-04 09:35 | disposition home or self-care (01) ==
LOC: HO.LAB 09:34
PROVIDERS: PCP Nurse Practitioner Family; Visit Provider Nurse Practitioner Family
DX: E11.59 Type 2 diabetes mellitus with other circulatory complications (principal); I15.2 Hypertension secondary to endocrine disorders; E11.8 Type 2 diabetes mellitus with unspecified complications
CPT/HCPCS: 36415; 80053; 82043; 82306; 82570; 82607; 82746; 83036; 83721

== ENCOUNTER 2024-08-05 09:31 | Outpatient (AMB) | payer OTHER, SELFPAY ==
[2024-08-05 09:33] VITALS: BMI 37.5
--- NOTE | 2024-08-05 09:33 | MHC.OFFVIS ---
Vital Signs 08/05/24 09:33 Height 5 ft 3 in Weight 211 lb 10.3 oz BMI 37.5 Intake Visit Reasons: IUD removal Torch Burner Required: No Information Interpreted: non-clinical & clinical Athletic Shoe Designer: Athletic Shoe Designer Present (Ruma MCCRAY) Accompanied by: Self / Same As Patient Allergies codeine [CODEINE] Allergy (Severe, Verified 08/05/24 09:33) SWELLING doxycycline [DOXYCYCLINE] Allergy (Severe, Verified 08/05/24 09:33) SWELLING Seasonal Allergies Allergy (Intermediate, Verified 08/05/24 09:33) Runny Nose Is last menstrual period known: No (mirena) HPI Comments Details: Presenting for Mirena IUD and reinsertion. Last Mirena was inserted 14 years ago, the patient is requesting IV sedation [facility] Medical History (Updated 07/29/24 @ 14:23 by Ashwin El MD) BMI 37.0-37.9, adult DARIN (obstructive sleep apnea) GERD (gastroesophageal reflux disease) Diabetes mellitus Asthma Anxiety HTN (hypertension) Umbilical hernia Surgical History Hx of bilateral breast reduction surgery History of esophagogastroduodenoscopy (EGD) H/O section History of appendectomy H/O eye surgery History of tonsillectomy Family History Mother HTN (hypertension) Diabetes Father Heart disease Social History Household Members: Spouse and Children Housing: House Alcohol intake: current Alcohol intake frequency: other Patient Tobacco Use Status: Never used Tobacco e-Cigarette/Vaping Use: Never Used Second Hand Smoke Exposure: No service: No 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 occupational status: employed 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 Current occupational exposures/hazards: No Cognitive needs: No Hearing needs: No Vision needs: No Review of Systems Const All systems reviewed & are unremarkable except as noted in HPI and below Reports as per HPI and Reports no additional complaints GI Reports no additional complaints Reports no additional complaints Physical Exam Vital Signs: BMI result Body Mass Index 37.5 Results AMB Test Urine AMB Test Urine Negative Last Edit by SHAZIA Felder on 08/05/24 09:45 Results Reviewed Results Reviewed: Laboratory Last Values [facility] Negative 08/05/24 09:44 Assessment & Plan Assessment & Plan (1) Family planning: Code(s): Z30.09 - Encounter for other general counseling and advice on contraception Category: Social Hx Plan: Will senda prescription for alprazolam 0.5 mg p.o. to be taken 1 hour prior to next appointment and schedule Mirena IUD removal and insertion. Instructions given the patient to take 600 mg of ibuprofen 1 hour prior to the procedure and to patient to use backup method for control in order to prevent since her last Mirena IUD was inserted 14 years ago and is . All questions answered, the patient verbalized understanding Orders: Orders AMB HCG Urine Test Today Z32.02 - Encounter for test, result negative Medications: New alprazolam Take 1 tablet 1 hour prior to procedure 0.5 mg PO ONCE 1 day PRN 1 tab 0RF sleep Coding Level of Care Code Est Pt Level 3 (84869) Diagnoses Family planning Z30.
== END 2024-08-05 10:27 | disposition home or self-care (01) ==
PROVIDERS: PCP Nurse Practitioner Family; Visit Provider Obstetrics & Gynecology
DX: Z32.02 Encounter for pregnancy test, result negative (principal); Z30.09 Encounter for other general counseling and advice on contraception
CPT/HCPCS: 99213

== ENCOUNTER 2024-08-05 09:31 | Outpatient (REF) | payer OTHER, SELFPAY ==
--- NOTE | ~2024-08-05 | XR_ITS ---
EXAMINATION: XR CHEST CLINICAL INFORMATION: Body mass index COMPARISON: Chest radiograph 06/07/2021 TECHNIQUE: 2 views of the chest were obtained. FINDINGS: The lungs are adequately expanded. No focal consolidation. No pleural effusions or pneumothorax. The cardiomediastinal silhouette is within normal limits. No acute osseous abnormality. XR/XR chest 2V IMPRESSION: No acute pulmonary disease. Electronically signed by: Lacho Crockett MD 08/05/2024 04:32 PM EDT
--- NOTE | 2024-08-05 10:44 | ECG_ITS ---
Test Reason : Elevated BMI Blood Pressure : / mmHG Vent. Rate : 079 BPM Atrial Rate : 079 BPM P-R Int : 146 ms QRS Dur : 078 ms QT Int : 384 ms P-R-T Axes : 065 077 072 degrees QTc Int : 440 ms Normal sinus rhythm Normal ECG When compared with ECG of 07-JUN-2021 17:56, No significant change was found Referred By: Ashwin El Electronically Signed By:JEFF ALEX
[2024-08-05 11:05] LABS: MANUAL DIFF FLAG NO
[2024-08-05 11:18] LABS: Basophils Percent Auto 0.2 % (0-2); Eosinophils Absolute Auto 0.1 X10*3/uL (0.0-0.4); Eosinophils Percent Auto 1.2 % (0-4); Hematocrit 39.7 % (37.0-47.0); Hemoglobin 13.4 g/dl (12.0-16.0); Imm Gran Abs Auto 0.03 X10*3/uL (0.00-0.03); Imm Gran Pct Auto 0.5 % (0.0-0.4); Lymphocytes Absolute Auto 1.5 X10*3/uL (1.2-4.9); Lymphocytes Percent Auto 26.7 % (20-40); Mean Corpuscular HGB Conc 33.8 g/dl (31.0-35.0); Mean Corpuscular Hemoglobin 29.4 pg (27.0-33.0); Mean Corpuscular Volume 87.1 fL (80.0-98.0); Mean Platelet Volume 9.7 fL (9.4-12.3); Monocytes Absolute Auto 0.3 X10*3/uL (0.1-1.2); Monocytes Percent Auto 5.8 % (2-11); Neutrophils Absolute Auto 3.7 x10*3/uL (2.0-8.3); Neutrophils Percent Auto 65.6 % (45-73); Platelet Count 279 X10*3/uL (160-400); Red Blood Count 4.56 X10*6/uL (4.20-5.50); White Blood Count 5.7 X10*3/uL (4.8-10.8)
[2024-08-05 11:45] LABS: Estimated Average Glucose 243 mg/dL; Hemoglobin A1c % 10.1 % (<6.0)
[2024-08-05 12:04] LABS: Alanine Aminotransferase 31 U/L (0-31); Albumin Level 4.2 g/dL (3.5-5.0); Alkaline Phosphatase 72 U/L (39-117); Anion Gap 11 (12-20); Aspartate Amino Transferase 20 U/L (5-31); Bilirubin Total 0.4 mg/dL (0.0-1.0); Blood Urea Nitrogen 13 mg/dL (9-16); C Reactive Protein 0.44 mg/dL (< or = 0.50); Calcium 9.3 mg/dL (8.4-10.2); Carbon Dioxide 25 mmol/L (22-29); Chloride 103 mmol/L (96-108); Cholesterol 229 mg/dL (<200); Estimated Glomerular Filt Rate 58; Glucose Random 285 mg/dL (60-115); HDL Cholesterol 45 mg/dL (>40); Iron 66 mcg/dL (30-160); LDL Cholesterol Calculated 154 mg/dL (<100); Percent Iron Saturation 23 % (15-50); Potassium 4.1 mmol/L (3.3-5.1); Sodium 135 mmol/L (135-145); Total Iron Binding Capacity 286 mcg/dL (228-428); Triglycerides 152 mg/dL (<150); Unsaturated Iron Binding 220 ug/dL
[2024-08-05 12:12] LABS: Ferritin 131 ng/mL (10-250); Insulin 8 uU/mL (2-29); TSH reflex Free T4 1.23 uIU/mL (0.32-4.0); Vitamin D 25-OH Total 37.8 ng/mL (>30)
[2024-08-05 12:24] LABS: Folate 13.5 ng/mL (> or = 4.0); Vitamin B12 900 pg/mL (200-900)
[2024-08-09 22:49] LABS: Zinc 73 mcg/dL (60-130)
[2024-08-11 00:13] LABS: Vitamin A 55 mcg/dL (38-98)
[2024-08-12 06:28] LABS: Vitamin B1 11 nmol/L (8-30)
== END 2024-08-05 09:32 | disposition home or self-care (01) ==
LOC: HO.LAB 09:31
PROVIDERS: PCP Nurse Practitioner Family; Referring Provider Surgery; Visit Provider Obstetrics & Gynecology
DX: Z30.09 Encounter for other general counseling and advice on contraception (principal); E11.8 Type 2 diabetes mellitus with unspecified complications; I15.2 Hypertension secondary to endocrine disorders; E11.59 Type 2 diabetes mellitus with other circulatory complications; Z68.37 Body mass index [BMI] 37.0-37.9, adult
CPT/HCPCS: 36415; 71046; 80053; 80061; 81025; 82306; 82607; 82728; 82746; 83036; 83525; 83540; 84425; 84443; 84590; 84630; 85025; 86140; 93005; 99212

== ENCOUNTER 2024-08-16 16:45 | Outpatient (AMB) | payer OTHER, SELFPAY ==
--- NOTE | 2024-08-16 16:54 | A.OFFPC_ITS ---
Intake Visit Reasons: Diabetes MED REVIEW-HASEEB Y IMPORTANT Allergies codeine [CODEINE] Allergy (Severe, Verified 08/16/24 16:56) SWELLING doxycycline [DOXYCYCLINE] Allergy (Severe, Verified 08/16/24 16:56) SWELLING Seasonal Allergies Allergy (Intermediate, Verified 08/16/24 16:56) Runny Nose Medication List - Last Reconciled 08/16/24 by Aviva Ribeiro, [facility]- alprazolam 0.5 mg PO ONCE PRN 1 day cholecalciferol (vitamin D3) (Vitamin D3) 25 mcg PO DAILY lisinopril-hydrochlorothiazide 20-12.5 mg 1 tab PO DAILY 1 month sitagliptin phos-metformin 50-1,000 mg ER 2 tabs PO QPM Tobacco use date assessed: 01/20/24 Dental Screening Dental Screen Date: 01/06/24 HPI HPI Comments History of Present Illness Details 43-year-old female with obesity, hyperte nsion, diabetes type 2, obstructive sleep apnea, GERD, mild intermittent asthma, ROSALBA, H. pylori, gallstones, constipation, umbilical hernia, cervical spondylosis, lumbar spine DJD, ovarian cyst Status post bilat breast reduction in 2004, EGD in 2019 Dr. Dejesus, x2, appendectomy, tonsillectomy, hernia repair with mesh Telehealth appointment today follow up on her sitagliptin/metformin take 2 tabs with evening meal. This is prescribed 08/05/2024. She states that she has been without this medication. States she needs a prior authorization. Was in [place] and just got back and still has not have the medication. Reviewed the chart with her. She is asking for me to go through the entire record and read all of the notes that have come in and her request. I have let her know that I am sorry that she has not gotten her medication and to avoid any further delay in her care I could send over a medication that would not require a prior authorization such as metformin and glyburide. She was declined this stating that she wants to take the originally prescribed medication. Of note this was prescribed previously and she was also not able to get due to insurance. Review of the chart shows that I have not received any prior authorization request to date. I have sent this prescription again to her local pharmacy. She reports that she was there at the pharmacy right now. I have included a note that is specifically state with the pharmacy staff that they need to remedy this prior authorization situation and provide clear direct instructions to this patient on how to proceed. If this medication is not covered to send me a notification immediately so that I may send in an alternative med. I have sent a message to the physician office assistant as well as to the nursing staff to follow up on this request. Once again I offered empathy and support as well as my apologies for any inconveniences to her. This note is constructed using voice recognition software. While every effort has been made to ensure accuracy in stove tender, still errors may have been included Sometimes, these errors may affect the content or meaning of the given sentence . Total time spent caring for the patient today was 40 minutes. This includes time spent before the visit reviewing the chart, time spent during the visit, and time spent after the visit on documentation [facility], [facility] Medical History (Updated 08/16/24 @ 17:11 by Aviva Ribeiro, [facility]) BMI 37.0-37.9, adult DARIN (obstructive sleep apnea) GERD (gastroesophageal reflux disease) Diabetes mellitus Asthma Anxiety HTN (hypertension) Umbilical hernia Surgical History Hx of bilateral breast reduction surgery History of esophagogastroduodenoscopy (EGD) H/O section History of appendectomy H/O eye surgery History of tonsillectomy Family History Mother HTN (hypertension) Diabetes Father Heart disease Social History Household Members: Spouse and Children Housing: House Alcohol intake: current Alcohol intake frequency: other Patient Tobacco Use Status: Never used Tobacco e-Cigarette/Vaping Use: Never Used Second Hand Smoke Exposure: No service: No Current occupational status: employed 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 Saud Cantu, Lalitha Loco, Evaristo Schultz and colleagues, with an educational deon from [employer]. Physical exam (Primary Care) Tobacco/Smoking Status: Tobacco use Status Tobacco use date assessed 01/20/24 08/05/24 10:18 Patient Tobacco Use Status Never used Tobacco 08/05/24 10:18 e-Cigarette/Vaping Use Never Used 08/05/24 10:18 Thrive Assessment: Date of Thrive Assessment Date Thrive assessed 01/06/24 08/05/24 10:18 Telehealth Telehealth Telehealth Platform: Telephone Location of provider rendering services: practice address Location of patient: address on file Patient Identification confirmed using: Name, : Yes Telehealth method: voice only Patient verbally consented to treatment: Yes Patient verbally consented to billing insurance company: Yes Patient informed of any privacy concerns related to visit: Yes Minutes spent on Phone/Video with Pt.: 15 Coding Level of Care Code Tele Est Pt Level 4 (42466) Complex EM visit Add On G2211 Diagnoses Diabetes mellitus type 2 with complications E11.8 Assessment & Plan Assessment & Plan (1) Diabetes mellitus type 2 with complications: Comment: [id number] 7.9% . 01/06/2024 Due for DM eye exam, advised to schedule STACEY on ACEI Intolerant GI side effects from Wegovy. Janumet XR 50 mg/1000 mg 2 tabs PO q.p.m.. not covered by insurance in the past. Code(s): E11.8 - Type 2 diabetes mellitus with unspecified complications Category: Medical Plan . Medications: Refilled sitagliptin phos-metformin 50-1,000 mg ER 2 tabs PO QPM 180 tabs 0RF
== END 2024-08-16 17:13 | disposition home or self-care (01) ==
LOC: HO.HMCFM 16:45
PROVIDERS: PCP Nurse Practitioner Family; Visit Provider Nurse Practitioner Family
DX: E11.8 Type 2 diabetes mellitus with unspecified complications (principal)

== ENCOUNTER → 2024-08-16 16:45 | Outpatient (BNVA) | payer OTHER, SELFPAY | PROVIDERS: PCP Nurse Practitioner Family; Visit Provider Nurse Practitioner Family ==

== ENCOUNTER 2024-08-22 09:16 | Outpatient (REF) | payer OTHER, SELFPAY ==
--- NOTE | ~2024-08-22 | US_ITS ---
EXAMINATION: US COMPLETE ABDOMEN WITH LIVER ELASTOGRAPHY CLINICAL INFORMATION: BMI 37.0, 237.9 COMPARISON: CT abdomen and pelvis 03/28/2021. TECHNIQUE: Real-time imaging of the abdominal viscera. Noninvasive ultrasound liver fibrosis assessment is performed using Pedro ElastPQ point quantification shear wave elastography (pSWE) with a C5-2 MHz transducer. Multiple elastography samples are obtained. FINDINGS: PANCREAS: . The visualized pancreatic head and body are normal in appearance. The remainder of the pancreas is obscured from visualization by the overlying bowel gas. ABDOMINAL AORTA: The proximal, middle, and distal aortic segments are normal in caliber. INFERIOR VENA CAVA: Visualized portions are normal. LIVER: The liver is enlarged with increased echogenicity consistent with hepatic steatosis. No focal lesion or intrahepatic biliary duct dilatation. The right lobe measures 19 cm in length. On the 03/28/2024 CT scan, the liver was 21.6 cm in maximal length. The left lobe measures 13.5 cm in length. Portal flow is towards the liver (hepatopetal). Shear wave liver elastography median stiffness is 1.33 m/s (reference: normal median stiffness is 1.3 m/s or less). IQR/median stiffness to assess sampling precision is 0.11 (reference: good quality data set is IQR/median stiffness of 0.15 or less). GALLBLADDER: The gallbladder is filled with gallstones, similar to 2020, but there is no evidence of cholecystitis. COMMON BILE DUCT: Normal in caliber measuring 0.3 cm in diameter. RIGHT KIDNEY: Normal. No hydronephrosis. No renal calculi or focal parenchymal lesions. The kidney measures 10.9 cm in maximum dimension. LEFT KIDNEY: Normal. No hydronephrosis. No renal calculi or focal parenchymal lesions. The kidney measures 10.2 cm in maximum dimension. SPLEEN: Normal. The spleen measures 11.5 cm in maximum dimension. FREE FLUID: None. US/US abdomen comp w elastography IMPRESSION: 1. Enlarged fatty liver and cholelithiasis. 2. Liver elastography: Measurements are consistent with a high probability of normal liver stiffness. REFERENCE: Society of Radiologists in Ultrasound Liver Stiffness Thresholds (2019): LIVER STIFFNESS THRESHOLDS: *Liver Stiffness equal or less than 1.3 m/s: High probability of being normal. *Liver Stiffness less than 1.7 m/s: In the absence of other known clinical signs, rules out compensated advanced chronic liver disease. *Liver Stiffness 1.7-2.1 m/s: Suggestive of compensated advanced chronic liver disease but need further test for confirmation. *Liver Stiffness over 2.1 m/s: Rules in compensated advanced chronic liver disease. *Liver Stiffness over 2.4 m/s: Suggestive of clinically significant portal hypertension. QUALITY OF DATA SET: *IQR/Median value equal or less than 0.15 implies a quality data set. *IQR/Median value over 0.15 implies a poor quality data set. SIGNIFICANT CHANGE FROM PRIOR EXAM: Significant change if liver stiffness measurement is 10% or greater from prior exam. OTHER CONSIDERATIONS: The stage of liver fibrosis may be overestimated in the setting of acute hepatitis, liver inflammation, elevated liver function tests, hepatic vascular congestion, obstructive cholestasis, non-fasting state, and infiltrative diseases such as amyloidosis and lymphoma. In some patients with NAFLD, the liver stiffness thresholds for compensated advanced chronic liver disease may be lower. In causes other than viral hepatitis and NAFLD, liver stiffness thresholds are not well established. Electronically signed by: Yordan Donohue MD 10/14/2024 01:40 PM [facility]
== END 2024-08-22 09:17 | disposition home or self-care (01) ==
LOC: HO.US 09:16
PROVIDERS: PCP Nurse Practitioner Family; Visit Provider Surgery
DX: E11.59 Type 2 diabetes mellitus with other circulatory complications (principal); I15.2 Hypertension secondary to endocrine disorders
CPT/HCPCS: 76700; 76981

== ENCOUNTER 2024-08-25 15:55 | Outpatient (AMB) | payer OTHER, SELFPAY ==
--- NOTE | 2024-08-25 15:59 | MHC.OFFVIS ---
Vital Signs 08/25/24 16:04 Height 5 ft 3 in Weight 211 lb 10.3 oz BMI 37.5 Intake Visit Reasons: mirena removal and insertion Polymer Engineer Required: No Information Interpreted: non-clinical & clinical Language Arts Teacher: Language Arts Teacher Present (Ruma MCCRAY) Accompanied by: Spouse Allergies codeine [CODEINE] Allergy (Severe, Verified 08/25/24 16:09) SWELLING doxycycline [DOXYCYCLINE] Allergy (Severe, Verified 08/25/24 16:09) SWELLING Seasonal Allergies Allergy (Intermediate, Verified 08/25/24 16:09) Runny Nose Is last menstrual period known: No (mirena) HPI Comments Details: Presenting for IUD removal would like to discuss different options for control because she is not sure about Mirena IUD insertion [facility] Medical History BMI 37.0-37.9, adult DARIN (obstructive sleep apnea) GERD (gastroesophageal reflux disease) Diabetes mellitus Asthma Anxiety HTN (hypertension) Umbilical hernia Surgical History Hx of bilateral breast reduction surgery History of esophagogastroduodenoscopy (EGD) H/O section History of appendectomy H/O eye surgery History of tonsillectomy Family History Mother HTN (hypertension) Diabetes Father Heart disease Social History Household Members: Spouse and Children Housing: House Alcohol intake: current Alcohol intake frequency: other Patient Tobacco Use Status: Never used Tobacco e-Cigarette/Vaping Use: Never Used Second Hand Smoke Exposure: No service: No Current occupational status: employed 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 Current occupational exposures/hazards: No Cognitive needs: No Hearing needs: No Vision needs: No Review of Systems Const All systems reviewed & are unremarkable except as noted in HPI and below Physical Exam Vital Signs: BMI result Body Mass Index 37.5 General: Yes no CVA tenderness External Female Exam: normal external appearance and normal appearance of the urethra Speculum Exam - Vagina: normal appearance of the vagina, normal palpation, no lesions and no masses Speculum Exam - Cervix: normal appearance of the cervix, normal palpation, no lesions, no masses, nontender and Other cervical findings present (IUD string in place) Bimanual exam- vagina & uterus: normal bimanual exam, normal palpation, uterine size normal, normal palpation, uterine shape normal, No Cervical tenderness present and non-tender Bimanual Exam- Adnexa, other: normal adnexae Back/Spine/Pelvis Back: no CVA tenderness Office Procedures IUD Insert/Removal Details Details: Counseling/Consent: After discussing with the patient the risks of the procedure including bleeding, infection, scar tissue formation, , possible injury to blood vessels or nerves, chronic arm pain, blood transfusion, and irregular unpredictable bleeding Alternative options were discussed with the patient including but not limited: Do nothing. The patient signed the consent and agreed with the plan; all questions answered. Urine test was done in the office and was negative Preop dx: Requesting IUD removal Op: IUD removal Post op dx: same EBL= 10 cc Procedure: The patient was put in the dorsal lithotomy position a speculum was inserted in the vagina the IUD thread identified. Using a Lisandra clamp the thread was grasped and the IUD pulled out with no complications. The patient tolerated the procedure well and was advised to use a different method for contraception. Discharge instructions: Instructions were given to the pt to call if temp>100.4, abdominal pain heavy vaginal bleeding, n/v occur. The patient verbalized understanding and all questions answered. This note was generated with a voice recognition program. Some errors may have been overlooked during the review of this note. Sometimes these errors may affect the content or meaning of a given sentence. 33797-TJN Removal Procedure code (CPT) selection complete Results AMB Test Urine AMB Test Urine Negative Last Edit by Ruma Baldwin CMA on 08/25/24 16:19 Results Reviewed Results Reviewed: Laboratory Last Values Tst Clinic Negative 08/25/24 16:19 Assessment & Plan Assessment & Plan (1) Encounter for IUD removal: Code(s): Z30.432 - Encounter for removal of intrauterine contraceptive device Category: Medical Plan: IUD removed, see procedure note (2) Family planning: Code(s): Z30.09 - Encounter for other general counseling and advice on contraception Category: Social Hx Plan: Discussed with the patient the different options of control including control pills/Nuvaring, Depo Medroxy Progesterone Acetate, IUD ( levonorgestrel, Copper), sterilization and vasectomy. All the pros, cons, risks and benefits of each were discussed with the patient. The patient decided to go think about it and get back to me. Instructions were given to use a back- up method for contraception to decrease the risk of ovarian . All questions answered, the the patient verbalized understanding and agreed with the plan Orders: Orders AMB HCG Urine Test Today Z32.02 - Encounter for test, result negative Coding Level of Care Code Est Pt Level 3 (90388) Procedure Only Diagnoses Encounter for IUD removal Z30.432 Family planning Z30.09 CPT Codes Details - CPT: 18575-GYA Removal ([id number])
[2024-08-25 16:04] VITALS: BMI 37.5
== END 2024-08-25 16:37 | disposition home or self-care (01) ==
LOC: HO.HWS 15:55
PROVIDERS: PCP Nurse Practitioner Family; Visit Provider Obstetrics & Gynecology
DX: Z30.09 Encounter for other general counseling and advice on contraception (principal); Z30.432 Encounter for removal of intrauterine contraceptive device; Z32.02 Encounter for pregnancy test, result negative
CPT/HCPCS: 58301; 99213

== ENCOUNTER → 2024-08-25 15:55 | Outpatient (BNVA) | payer OTHER, SELFPAY | PROVIDERS: PCP Nurse Practitioner Family; Visit Provider Obstetrics & Gynecology | DX: Z30.432 Encounter for removal of intrauterine contraceptive device (principal); Z30.09 Encounter for other general counseling and advice on contraception | CPT/HCPCS: 58301; 81025; 99212 ==

== ENCOUNTER → 2024-09-02 08:13 | Outpatient (AMB) | payer OTHER, SELFPAY ==
--- NOTE | 2024-09-02 08:15 | MHC.WMTHER ---
Intake Intake Visit Reasons: (OV) BH Intake Allergies codeine [CODEINE] Allergy (Severe, Verified 08/25/24 16:09) SWELLING doxycycline [DOXYCYCLINE] Allergy (Severe, Verified 08/25/24 16:09) SWELLING Seasonal Allergies Allergy (Intermediate, Verified 08/25/24 16:09) Runny Nose [facility] Medical History BMI 37.0-37.9, adult DARIN (obstructive sleep apnea) GERD (gastroesophageal reflux disease) Diabetes mellitus Asthma Anxiety HTN (hypertension) Umbilical hernia Surgical History Hx of bilateral breast reduction surgery History of esophagogastroduodenoscopy (EGD) H/O section History of appendectomy H/O eye surgery History of tonsillectomy Family History Mother HTN (hypertension) Diabetes Father Heart disease Social History Household Members: Spouse and Children Housing: House Alcohol intake: current Alcohol intake frequency: other Patient Tobacco Use Status: Never used Tobacco e-Cigarette/Vaping Use: Never Used Second Hand Smoke Exposure: No service: No Current occupational status: employed 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 Presenting Concerns Referral Source P Provider - Pt started on 07/29/[address] Sarabia Reason for referral Completion of behavioral health assessment as part of process for weight-loss surgery. Precipitating Event Obesity. Living Situation Current Living Situation Own At risk of losing current housing? No Satisfied with current living situation? Yes Comments Pt lives with her , 18 y/o daughter and the family pets, 1 dog and 2 parrots. Food/Weight/Diet Expectations of change Initial goal to lose 10% of her weight before surgery, which is about 21lbs. Ultimate weight goal: 192lbs before surgery. she started the program on 07/29/24 at 213Lbs, and today's weight is 209Lbs. Patient goals are PT is implementing the following: Current meal plan: 2 shakes, 2 bars, 1 meal (8F/8F) Exercise plan: History/Relationship with food Example of meals before starting the program: Breakfast: Lunch: Dinner: Snacks: Drinks/Liquids: History/Relationship with weight In the last 10 years, the patient's Lowest weight was and highest Social History Family history and relationship PT is 20 years ago. She has adult 2 children, oldest son who is 22 y/o form previous relationship, and daughter is 18 y/o. Father when she was 14 y/o. she emancipated at age 16 and at age 18. Mother is alive and lives close to her. She has 2 siblings. Pt reports growing up had dysfunctional family relationships as her mother has MH issues. Pt currently doesn't have relationship with mom and 1 sibling. Parental/Familial swatch maker obligations 18 y/o daughter. Developmental history and status None reported Social support , children, brother (Ney). Pt is very social and have some close friends. Community support None. Jehovah'S Witness/Spirituality Doesn't belong to any pentecostalism or faith. Growing up attended Zoroastrianism faith. She has a strong foundation but doesn't practice. Cultural/Ethnic information PT was born and raised in [place] and lives [place] 21 years ago. Legal Involvement and History Current or historical involvement with the legal system? None reported Education Highest grade completed Associate Degree Preferred learning style Visual Currently enrolled in educational program? No Interested in further educational program? 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 ) Wants help to find employment? No Meaningful activities Travel, Family activities, cooking. Financial Situation Describe current financial situation Comfortable Financial assistance? None Service Service? No Questionnaires PHQ-9 Over the last 2 weeks, how often have you been bothered by any of the following problems? 1. Little interest or pleasure in doing things: more than half the days 2. Feeling down, depressed, or hopeless: not at all 3. Trouble falling or staying asleep, or sleeping too much: more than half the days 4. Feeling tired or having little energy: more than half the days 5. Poor appetite or overeating: not at all 6. Feeling bad about yourself - or that you are a failure or have let yourself or your family down: not at all 7. Trouble concentrating on things, such as reading the newspaper or watching television: several days 8. Moving or speaking so slowly that other people could have noticed. Or the opposite - being so fidgety or restless that you have been moving around a lot more than usual: not at all 9. Thoughts that you would be better off or of hurting yourself in some way: not at all Total score: 7 Depression Screening Interpretation: Positive (From new Client Pack. A new one will be administered at next visit.) Depression Screening Done: Yes Source: Developed by Drs. Saud Cantu, Lalitha Loco, Evaristo Schultz and colleagues, with an educational deon from [employer]. Binge Eating Scale Group 1 A. I don't feel self-conscious about my wt. or body size when I'm with others. B. I feel concerned about how I look to others, but it normally does not make me fell disappointed with myself C. I do get self-conscious about my appearance and wt. which makes me feel disappointed in myself. D. I feel very self-conscious about my wt. and frequently I feel intense shame and disgust for myself. I try to avoid social contacts because of my self-consciousness. Response Group 1: A Group 2 A. I don't have any difficulty eating slowly in the proper manner. B. Although I seem to gobble down foods, I don't end up feeling stuffed because of eating to much. C. At times, I tend to eat quickly and then, I feel uncomfortably full afterwards. D. I have the habit of bolting down my food, without really chewing it. When this happens I usually feel uncomfortably stuffed because I've eaten to much. Response Group 2: A Group 3 A. I feel capable to control my eating urges when I want to. B. I feel like I have failed to control my eating more than the average person. C. I feel utterly helpless when it comes to feeling in control of my eating urges. D. Because I feel so helpless about controlling my eating I have become very desperate about trying to get control. Response Group 3: A Group 4 A. I don't have the habit of eating when I'm bored. B. I sometimes eat when I'm bored, but often I'm able to get busy and get my mind off food. C. I have a regular habit of eating when I'm bored, but occasionally, I can use some other activity to get my mind off eating. D. I have a strong habit of eating when I'm bored. Nothing seems to help me breath the habit. Response Group 4: A Group 5 A. I'm usually physically hungry when I eat something. B. Occasionally, I eat something on impulse even though I really am not hungry. C. I have the regular habit of eating foods, that I might not really enjoy, to satisfy a hungry feeling even though physically, I don't need the food. D. Although I'm not physically hungry, I get a hungry feeling in my mouth that only seems to be satisfied when I eat a food, like sandwich, that fills my mouth. Sometimes, when I eat the food to satisfy my mouth hunger, I then spit the food out so I won't gain weight. Response Group 5: B Group 6 A. I don't feel any guilt or self-hate after I overeat. B. After I overeat, occasionally I feel guilt or self-hate. C. Almost all the time I experience strong guilt or self-hate after I overeat. Response Group 6: B Group 7 A. I don't lose total control of my eating when dieting even after periods when I overeat. B. Sometimes when I eat a forbidden food on a diet, I feel like I blew it and eat even more. C. Frequently, I have the habit of saying to myself, I've blown it now, why not go all the way, when I overeat on a diet. When that happens I eat more. D. I have a regular habit of starting a strict diets for myself but I break the diets by going on an eating binge. My life seems to be either a feast or famine. Response Group 7: A Group 8 A. I rarely eat so much food that I feel uncomfortably stuffed afterwards. B. Usually about once a month, I each such a quantity of food, I end up feeling very stuffed. C. I have regular periods during the month when I eat large amounts of food, either at mealtime or at snacks. D. I eat so much food that I regularly feel quite uncomfortable after eating and sometimes a bit nauseous. Response Group 8: A Group 9 A. My level of calorie intake does not go up very high or go down very low on a regular basis. B. Sometimes after I overeat, I will try to reduce my caloric intake to almost nothing to compensate for the excess calories I've eaten. C. I have a regular habit of overeating during the night. It seems that my routine is not to be hungry in the morning but overeat in the evening. D. In my adult years, I have had week-long periods where I practically starve myself. This follows periods when I overeat. It seems I live a life of either feast or famine. Response Group 9: B Group 10 A. I usually am able to stop eating when I want to. I know when enough is enough. B. Every so often, I experience a compulsion to eat which I can't seem to control. C. Frequently, I experience strong urges to eat which I seem unable to control, but at other times I can control my eating urges. D. I feel incapable of controlling urges to eat. I have a fear of not being able to stop eating voluntarily. Response Group 10: A Group 11 A. I don't have any problem stopping eating when I feel full. B. I usually can stop eating when I feel full but occasionally overeat leaving me feeling uncomfortably stuffed. C. I have a problem stopping eating once I start and usually I feel uncomfortably stuffed after I eat a meal. D. Because I have a problem not being able to stop eating when I want, I sometimes have to induce vomiting to relieve my stuffed feeling. Response Group 11: A Group 12 A. I seem to eat just as much when I'm with others, Family social gatherings as when I'm by myself. B. Sometimes, when I'm with other persons, I don't eat as much as I want to eat because I'm self-conscious about my eating. C. Frequently, I eat only a small amount of food when others are present, because I'm very embarrassed about my eating. D. I feel so ashamed about overeating that I pick times to overeat when I know no one will see me. I feel like a closet eater. Response Group 12: A Group 13 A. I eat three meals a day with only an occasional between meal snack. B. I eat 3 meals a day, but I also normally snack between meals. C. When I am snacking heavily, I get in the habit of skipping regular meals. D. There are regular periods when I seem to be continually eating, with no planned meals. Response Group 13: B Group 14 A. I don't think much about trying to control unwanted eating urges. B. At least some of the time, I feel my thoughts are pre-occupied with trying to control my eating urges. C. I feel that frequently I spend much time thinking about how much I ate or about trying not to eat anymore. D. It seems to me that most of my waking hours are pre-occupied by thoughts about eating or not eating. I feel like I'm constantly struggling not to eat. Response Group 14: A Group 15 A. I don't think about food a great deal. B. I have strong craving for food but they last only for brief periods of time. C. I have days when I can't seem to think about anything else but food. D. Most of my days seem to be pre-occupied with thoughts about food. I feel like I live to eat. Response Group 15: A Group 16 A. I usually know whether or not I'm physically hungry. I take the right portion of food to satisfy me. B. Occasionally, I feel uncertain about knowing whether or not I'm physically hungry. A these times it's hard to know how much food I should take to satisfy me. C. Even though I might know how many calories I should eat, I don't have any idea what is a normal amount of food for me. Response Group 16: A Binge Eating Score: 4 Score less than 17 Minimal Risk Score between 18-26 Moderate Risk Score between 27-46 High Risk Assessment & Plan Assessment & Plan (1) Adjustment disorder: Code(s): F43.20 - Adjustment disorder, unspecified Plan: PT is not cleared yet. She will be seen again to continue assessment. Next vaishali: 09/20/24 at 10am, via Telehealth. Coding Level of Care Code New Pt Psy Diag Eval (18772) Patient Type New Diagnoses Adjustment disorder F43.20 Time Spent (min) 60 Comment
== END ==
PROVIDERS: PCP Nurse Practitioner Family; Visit Provider Counselor Mental Health
DX: F43.20 Adjustment disorder, unspecified (principal)
CPT/HCPCS: 90791

== ENCOUNTER → 2024-09-02 08:13 | Outpatient (BNVA) | payer OTHER, SELFPAY | PROVIDERS: PCP Nurse Practitioner Family; Visit Provider Counselor Mental Health ==

== ENCOUNTER 2024-09-13 14:41 | Outpatient (AMB) | payer OTHER, SELFPAY ==
--- NOTE | 2024-09-13 14:43 | A.OFFVIS_ITS ---
Vital Signs 09/13/24 14:47 Height 5 ft 3 in Weight 212 lb 4.882 oz BMI 37.6 BP 110/84 Blood Pressure Location Rt brachial Position Sitting Pulse 101 H Pulse Source Pulse Oximeter Intake Visit Reasons: Type 2 diabetes mellitus/CONFIRMED Intake Note: New patient referred by PCP for Diabetes Mellitus Management. Last Diabetic Eye exam: Couple weeks ago Last Podiatry Visit: Does not see a Drink Box Mechanic Random Glucose: 274 mg/dl HgA1C: 10.1% 08/05/24 Emergency Management Specialist Required: No Accompanied by: Self / Same As Patient Allergies codeine [CODEINE] Allergy (Severe, Verified 09/13/24 14:56) SWELLING doxycycline [DOXYCYCLINE] Allergy (Severe, Verified 09/13/24 14:56) SWELLING Seasonal Allergies Allergy (Intermediate, Verified 09/13/24 14:56) Runny Nose HPI Comments Details: This is a 43-year-old female with a past medical history of anxiety, GERD, obesity, type 2 diabetes, hypertensive retinopathy and asthma presenting for a diabetic consult. The patient was diagnosed with diabetes 14 years ago. She has a family history of Type II diabetes (brother and mother) and Type I DM (maternal aunt). Hemoglobin a1c 10.1% 08/05/2024. Current medication regimen: Actos 15 mg which she started 2 weeks ago and metformin 500 mg extended release 2 capsules twice daily. Patient states she is not metabolizing the capsules, and she sees them undigested in stools. She requests Rx or tablets. Janumet not covered by insurance, and there was an issue getting prior authorization completed. Four years ago she was on Trulicity. Patient tried Ozempic which cause acid reflux and nausea and so she did not continue. Compliance issues: none Diet: Breakfast-eggs, turkey, coffee w/ sugar cream and monk fruit Only eats low carb bread snacks on chickpeas low carbohydrate meals for lunch and dinner No juice or soda or alcohol Nonsmoker Hypoglycemia symptoms: none Hyperglycemia symptoms: polydipsia, dizzy Eye exam: [facility], up-to-date. Microvascular complications: Mild neuropathy in feet Macrovascular complications: none Patient had liver elastography done on 08/22/2024, and result is pending. Hypertension: treated with lisinopril-hydrochlorothiazide. Diastolic BP suboptimal today, but she was anxious to see a new provider. Hyperlipidemia: Not currently on statin. LDL is 154. ROS: Constitutional: No unexplained weight loss, fever, chills, fatigue or night sweats. Eyes: No vision changes, blurry vision, double vision, eye pain Respiratory: No shortness of breath, cough or sputum production. Cardiovascular: No chest pain or pedal edema. Neurologic: No headache, dizziness, syncope Skin: No rash or wounds Physical exam: Constitutional: Alert, in no distress. Neck: Supple, Full range of motion. No lymphadenopathy. No palpable thyroid masses. Respiratory: Clear to auscultation. Cardiovascular: S1 S2 regular. No murmurs. Right foot: Warm and well perfused. No clubbing, cyanosis or edema. DP pulse 3+. Intact vibratory sensation. Intact sensation to monofilament. Left foot: Warm and well perfused. No clubbing, cyanosis or edema. DP pulse 3+. Intact vibratory sensation. Intact sensation to monofilament. [facility] Medical History (Updated 09/13/24 @ 16:33 by WADE Sandoval) Obesity Uncontrolled type 2 diabetes mellitus with hyperglycemia Mixed hypercholesterolemia and hypertriglyceridemia BMI 37.0-37.9, adult DARIN (obstructive sleep apnea) GERD (gastroesophageal reflux disease) Diabetes mellitus Asthma Anxiety HTN (hypertension) Umbilical hernia Surgical History Hx of bilateral breast reduction surgery History of esophagogastroduodenoscopy (EGD) H/O section History of appendectomy H/O eye surgery History of tonsillectomy Family History Mother HTN (hypertension) Diabetes Father Heart disease Social History Household Members: Spouse and Children Housing: House Alcohol intake: current Alcohol intake frequency: other Patient Tobacco Use Status: Never used Tobacco e-Cigarette/Vaping Use: Never Used Second Hand Smoke Exposure: No service: No Current occupational status: employed 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 Current occupational exposures/hazards: No Cognitive needs: No Hearing needs: No Vision needs: No Physical Exam Vital Signs: BMI result Body Mass Index 37.6 Results Reviewed Results Reviewed: Laboratory Tests 01/06/24 08/04/24 08/05/24 11:31 10:05 11:04 Creatinine 1.04 Estimated GFR 58 Hgb A1c (Clinic) 7.9 H Hemoglobin A1c % 10.1 H Triglycerides 152 H Cholesterol 229 H LDL Cholesterol, Calc 154 H HDL Cholesterol 45 TSH 1.23 Urine Creatinine 167.11 Urine Microalbumin 19.0 Microalb/Creat Ratio 11.3 Assessment & Plan Assessment & Plan (1) Uncontrolled type 2 diabetes mellitus with hyperglycemia: Code(s): E11.65 - Type 2 diabetes mellitus with hyperglycemia Category: Medical (2) Mixed hypercholesterolemia and hypertriglyceridemia: Code(s): E78.2 - Mixed hyperlipidemia Category: Medical Plan In summary this is a 43-year-old female with uncontrolled type 2 diabetes currently on metformin and Actos. I sent metformin extended release tablets since patient reports she is not digesting capsules which may affect efficacy of the medication. Continue Actos 15 mg daily at this time. She would like to restart GLP 1 to promote weight loss. Sent Mounjaro 2.5 mg weekly. Advised patient it may require prior authorization. Reviewed side effects and proper administration. We discussed the need for titration based on tolerability and response. Discussed pathophysiology of Type II Diabetes Mellitus with the patient in detail.? I explained the half-way risks and complications associated with uncontrolled diabetes including nephropathy, neuropathy, peripheral vascular disease, retinopathy, increased risk of heart disease and stroke.? Discussed lifestyle modification with the patient. Recommended 30 minutes of moderately vigorous exercise 5 days per week to promote weight loss. Discussed compliance with home glucose monitoring. I sent a freestyle Lite glucometer, test strips and lancets to her pharmacy. In addition I will send a Patrick 3 and reader, but I advised her it will require prior authorization, and her insurance may not cover this since she is not on insulin. She declines referral to dietitian/contracting support specialist. She is followed by the bariatric surgery program currently. Reviewed proper treatment of hypo and hyperglycemia. Glucose tablets sent to pharmacy. Her diastolic blood pressure is suboptimal today. We will re-evaluate at her follow up in 4 weeks and discuss statin to address hyperlipidemia. Continue current dose of lisinopril-hydrochlorothiazide at this time. Follow up in 4 weeks for type 2 diabetes. Medications: New metformin ER 1,000 mg (2 x 500 mg) PO BID 90 days 360 tabs 3RF NS tirzepatide (Mounjaro) for 4 weeks 2.5 mg (0.5 mL) subcut QWEEK 2 mL 0RF blood sugar diagnostic (FreeStyle Lite Strips) As directed to check glucose 3 times daily 100 ea 5RF glucose (Dex4 Glucose Quick Dissolve) until symptoms of low blood sugar are controlled 16 grams (4 x 4 gram) PO Q15M PRN 10 tabs 3RF hypoglycemia blood-glucose meter,continuous (FreeStyle Patrick 3 [place]) Use daily to monitor blood glucose levels continuously. 1 ea 0RF blood-glucose sensor (FreeStyle Patrick 3 Sensor device) apply new sensor every 14 days 2 ea 11RF blood-glucose meter (FreeStyle Lite Meter kit) as directed to monitor blood glucose 1 ea 0RF E11.9 - Type 2 diabetes mellitus without complications lancets (FreeStyle Lancets) Use to monitor blood glucose 3 times daily. 100 ea 5RF Discontinued metformin ER Discontinued Reason: Doctor's Order 1,000 mg (2 x 500 mg) PO BID 90 days 360 tabs 1RF pioglitazone Discontinued Reason: Doctor's Order 15 mg PO DAILY 90 days 90 tabs 0RF Patient Instructions: Start Mounjaro 2.5 mg once weekly. Continue Actos 15 mg daily. Continue Metformin ER 500 mg 2 tablets twice daily. I sent a freestylelite fingerstick glucometer to monitor blood sugars. I sent a the libre3 and reader which is the CGM. This will likely need a prior authorization. Coding Level of Care Code New Pt Level 5 (12945) Complex EM visit Add On G2211 Diagnoses Uncontrolled type 2 diabetes mellitus with hyperglycemia E11.65 Mixed hypercholesterolemia and hypertriglyceridemia E78.2 Time Spent (min) 70 Comment Chart review, direct patient care, completing documentation
[2024-09-13 14:47] VITALS: BP 110/84; PULSE 101; BMI 37.6
[2024-09-13 15:13] LABS: Glucose, Whole Blood 274 mg/dL (60-115)
== END 2024-09-13 15:56 | disposition home or self-care (01) ==
LOC: HO.ENCR 14:42
PROVIDERS: PCP Nurse Practitioner Family; Visit Provider Physician Assistant Medical
DX: E11.65 Type 2 diabetes mellitus with hyperglycemia (principal); E78.2 Mixed hyperlipidemia

== ENCOUNTER → 2024-09-13 14:41 | Outpatient (BNVA) | payer OTHER, SELFPAY | PROVIDERS: PCP Nurse Practitioner Family; Visit Provider Physician Assistant Medical | DX: E11.65 Type 2 diabetes mellitus with hyperglycemia (principal); E78.2 Mixed hyperlipidemia; Z79.84 Long term (current) use of oral hypoglycemic drugs | CPT/HCPCS: 82947; 99202 ==

== ENCOUNTER 2024-09-14 08:59 | Day surgery (SDC) | payer OTHER, SELFPAY ==
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
[2024-09-14 09:34] LABS: UPreg QC Valid YES; Urine Pregnancy NEGATIVE (NEGATIVE)
[2024-09-14 09:44] LABS: Glucose, Whole Blood 312 mg/dL (60-115)
[2024-09-14 10:02] VITALS: BMI 37.6
[2024-09-14 10:17] VITALS: BP 126/82; PULSE 91; RESP 16; TEMP 36.2; O2SAT 97
--- NOTE | 2024-09-14 10:21 | MHC.SHP ---
Pre-Procedural Eval Section A - 24 Hr Update-Section A only Date of Service: 09/14/24 The patient is an INPATIENT: No The patient has been examined within 24 hours of the surgical procedure. The History & Physical has been completed within 30 days and I have reviewed it.: Yes Section B - Complete if H&P > 30 days Chief Complaint: Morbid (severe) obesity due to excess calories Details of Present Illness: GERD Relevant Family History (Specify if Yes): No Relevant Social History: None Present Medications: None Medical History: No relevant PMH History of Previous Operations: No relevant previous surgery Allergies: Allergies Allergy/AdvReac Type Severity Reaction Status Date / Time codeine [CODEINE] Allergy Severe SWELLING Verified 09/13/24 14:56 doxycycline [DOXYCYCLINE] Allergy Severe SWELLING Verified 09/13/24 14:56 Seasonal Allergies Allergy Intermediate Runny Nose Verified 09/13/24 14:56 Review of Systems Sugical H&P ROS: Negative: Constitution, Cardiovascular, Respiratory, Neurological, Psychiatric, Hem-Onc, Allergic/Immunologic, Gastrointestinal, Genitourinary, Musculoskeletal, Integumentary, Endocrine and Eyes/Ears/Nose/Throat Exam Surgical H&P Exam: Normal: HEENT, Normal: Heart, Normal: Lungs, Normal: Extremities, Normal: Abdomen, Normal: Skin and Normal: Neurological Plan Diagnosis/Plan: Unchanged (EGD to assess etiology of GERD. Risks of bleeding and perforation were discussed with the patient and she is in agreement with the plan.) I have reviewed the history and physical and performed a pertinent physical examination on my patient. No changes have occurred unless specified. Time Spent With Patient Time: Total time managing care of this patient today ____ minutes.
--- NOTE | 2024-09-14 10:22 | P.BOP_ITS ---
Brief Operative Note Date of Service: 09/14/24 Pre-op diagnosis: GERD Post-op diagnosis: same (& gastritis) Procedure: PROCEDURE DATE: 09/14/2024 PREOPERATIVE DIAGNOSIS: GERD POSTOPERATIVE DIAGNOSIS: ?Same as above. 1) gastritis PROCEDURE: [id number] with biopsies Surgeon: ?Amaury El M.D.. Ph.D. Heating And Cooling Systems Engineer: None ? Anesthesia: IV sedation Estimated blood loss: ?Minimal FINDINGS AND PROCEDURE: ? OPERATIVE INDICATIONS: ?The patient is a 69 year old female known to me who is interested in bariatric surgery. The patient has GERD. Based on this information I recommended an upper endoscopy to evaluate the patient's symptoms. Risks and complications of the surgery were discussed with the patient in advance particularly the possibility of perforation or bleeding that may require surgical intervention. The patient understood the risks and was in agreement with the plan. ? PROCEDURE: After informed consent was obtained by the patient, the patient was ?transferred to the Operating Room and was placed in the supine position.? After successful induction of IV sedation, a mouth block was inserted and the patient was placed in the left lateral decubitus position. An upper endoscopy was performed next, the oropharynx and esophagus appeared within the normal limits. There was no hiatal hernia. The z-line was smooth. Two biopsies were obtained from the distal esophagus 2-3 cm proximal to the GE junction and two additional biopsies from the GE junction. The stomach was entered and it appeared to be of normal size. There was gastritis throughout the stomach. There was no stricture or ulcer. A biopsy was obtained from the gastric fundus and the antrum. No significant bleeding was noted from any of the biopsy sites. Retroflexion of the scope revealed a normal GE junction. The scope was then advanced into the duodenum which appeared to be normal as well. At that point the duodenum ?and the stomach were decompressed and the scope was withdrawn from the patient's mouth. The patient extubated and was transferred in stable condition to the Recovery Room for further care. I was present and performed all steps of the procedure. There were no residents to assist with this case. Amaury El M.D., Ph.D. Surgeon: Ashwin El MD Anesthesia: MAC Was an Heating And Cooling Systems Engineer used for this Procedure?: No Estimated blood loss (mL): 0 IV fluids (mL): 400 Urine output (mL): 0 (No [place] to record output) Pathology: other (1) antrum x1, 2) fundus x1, 3) GE junction x2, 4) distal esophagus x2) Condition: stable Disposition: PACU
[2024-09-14] MEDS: Lactated Ringers 1,000 ML 100 ML IVCONT (10:36)
[2024-09-14 11:00] VITALS: BP 107/74; PULSE 110; RESP 20; TEMP 36.3; O2SAT 99
[2024-09-14 11:15] VITALS: BP 115/77; PULSE 87; RESP 20; TEMP 36.3; O2SAT 97
== END 2024-09-14 12:29 | disposition home or self-care (01) ==
PROVIDERS: Nurse Practitioner; PCP Nurse Practitioner Family; Visit Provider Surgery
PROC: 0DJ08ZZ Inspection of Upper Intestinal Tract, Via Natural or Artificial Opening Endoscopic (ICD-10-PCS; CPT 43235; principal; 2024-09-14 10:20)
DX: K21.9 Gastro-esophageal reflux disease without esophagitis (principal); E66.01 Morbid (severe) obesity due to excess calories; Z68.37 Body mass index [BMI] 37.0-37.9, adult; K29.50 Unspecified chronic gastritis without bleeding; B96.81 Helicobacter pylori [H. pylori] as the cause of diseases classified elsewhere; I15.2 Hypertension secondary to endocrine disorders; E11.59 Type 2 diabetes mellitus with other circulatory complications; J45.909 Unspecified asthma, uncomplicated; G47.33 Obstructive sleep apnea (adult) (pediatric); F41.9 Anxiety disorder, unspecified; Z79.84 Long term (current) use of oral hypoglycemic drugs; Z98.890 Other specified postprocedural states; Z79.899 Other long term (current) drug therapy; Z88.1 Allergy status to other antibiotic agents; Z88.5 Allergy status to narcotic agent; Z79.85 Long-term (current) use of injectable non-insulin antidiabetic drugs
CPT/HCPCS: 43239; 81025; 82947; 88305; 88313; 88342; J1596; J2003; J2704

== ENCOUNTER → 2024-09-14 08:59 | Outpatient (BNV) | payer OTHER, SELFPAY | PROVIDERS: PCP Nurse Practitioner Family; Visit Provider Surgery | DX: K21.9 Gastro-esophageal reflux disease without esophagitis (principal); K29.70 Gastritis, unspecified, without bleeding | CPT/HCPCS: 43239 ==

== ENCOUNTER 2024-09-20 10:08 | Outpatient (AMB) | payer OTHER, SELFPAY ==
--- NOTE | 2024-09-20 10:00 | MHC.WMTHER ---
Intake Intake Visit Reasons: VIDEO Intake Part 2 Allergies codeine [CODEINE] Allergy (Severe, Verified 09/13/24 14:56) SWELLING doxycycline [DOXYCYCLINE] Allergy (Severe, Verified 09/13/24 14:56) SWELLING Seasonal Allergies Allergy (Intermediate, Verified 09/13/24 14:56) [facility] Medical History Uncontrolled type 2 diabetes mellitus with hyperglycemia Mixed hypercholesterolemia and hypertriglyceridemia BMI 37.0-37.9, adult Obesity DARIN (obstructive sleep apnea) GERD (gastroesophageal reflux disease) Diabetes mellitus Asthma Anxiety HTN (hypertension) Umbilical hernia Surgical History H/O umbilical hernia repair History of surgery Hx of bilateral breast reduction surgery History of esophagogastroduodenoscopy (EGD) H/O section History of appendectomy H/O eye surgery History of tonsillectomy Family History Mother HTN (hypertension) Diabetes Father Heart disease Social History Household Members: Spouse and Children Housing: House Alcohol intake: current Alcohol intake frequency: other Patient Tobacco Use Status: Never used Tobacco e-Cigarette/Vaping Use: Never Used Second Hand Smoke Exposure: No service: No Current occupational status: employed 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 PT report she was on vacation last week, just returned. Most recent weight 207Lbs, and reports struggling to follow meal plan and not excercising. We discussed tips to adopt exercise/movement into routine and to develop awareness of important changes in eating habits for better results. Presenting Concerns Referral Source WMP Provider - Pt started on 07/29/[address] Sarabia Reason for referral Completion of behavioral health assessment as part of process for weight-loss surgery. Precipitating Event Obesity. Living Situation Current Living Situation Own At risk of losing current housing? No Satisfied with current living situation? Yes Comments Pt lives with her , 18 y/o daughter and the family pets, 1 dog and 2 parrots. Food/Weight/Diet Expectations of change Initial goal to lose 10% of her weight before surgery, which is about 21lbs. Ultimate weight goal: 192lbs before surgery. she started the program on 07/29/24 at 213Lbs, and today's weight is 209Lbs. Patient wants to support with weight loss and maintace. She is also dealing with type 2 diabetes and in a verge to use insulin and she wants to prevent that. PT is implementing the following: Current meal plan: 2 shakes, 2 bars, 1 meal (8F/8F). using celebrate powder and zone fit bars. Exercise plan: None. PT reports she struggles with the morning shake. History/Relationship with food Pt reports she tries to be mindful with her eating since she and her were diagnosed with diabetes. Example of meals before starting the program: Breakfast: @9am - 1 slide of bread, 2 eggs, coffee or a ham/cheese/egg sandwich. Am snack: dry cereal. Lunch: @2pm, leftovers. Meat/ pasta/veggies or salad or skip. PM snack: None. Dinner: @6-7pm. chicken, rice or pasta or boiled plantains, veggies/salad. night snacks: None. Drinks/Liquids: 2 cups of coffee, 2-3 water bottle at day. History/Relationship with weight She has always been chubby. She has been size XL several years ago, however, in the last years she changed her job from being very active and moving sorund to being seated most of the day. She is not used to exercise, and it's been hard to be consistent with exercise plan. In the last 10 years, the patient's Lowest weight was 202Lbs and highest 232Lbs History/Relationship with dieting Eating changes, walking. Prachi 30units- [id number] for diabetes but she lost 10Lbs. Binge Eating Do you frequently eat large amounts of food in short periods of time, not feeling physically hungry? No Do you feel out of control when you eat a large amount of food in a short period of time? No Do you eat large amounts of food rapidly and typically alone? No Night Eating Do you wake up at least once during the night to eat? No If you wake up in the night, do you find that it is necessary to eat something in order to fall back asleep? No Do you have little or no appetite in the morning and feel very hungry in the evening, often overeating between dinner and when you go to bed? No Social History Family history and relationship PT is 20 years ago. She has adult 2 children, oldest son who is 22 y/o form previous relationship, and daughter is 18 y/o. Father when she was 14 y/o. she emancipated at age 16 and at age 18. Mother is alive and lives close to her. She has 2 siblings. Pt reports growing up had dysfunctional family relationships as her mother has MH issues. Pt currently doesn't have relationship with mom and 1 sibling. Parental/Familial certified mortician obligations 18 y/o daughter. Developmental history and status None reported Social support , children, brother (Ney). Pt is very social and have some close friends. Community support None. Quaker/Spirituality Doesn't belong to any nondenominational or nondenominational. Growing up attended [employer] nondenominational. She has a strong foundation but doesn't practice. Cultural/Ethnic information PT was born and raised in [place] and lives [place] 21 years ago. Legal Involvement and History Current or historical involvement with the legal system? None reported Education Highest grade completed Associate Degree Preferred learning style Visual Currently enrolled in educational program? No Interested in further educational program? 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 ) Wants help to find employment? No Meaningful activities Travel, Family activities, cooking. Financial Situation Describe current financial situation Comfortable Financial assistance? None Service Service? No Medical and Physical Health Summary Additional Medical History not covered in history None reported Sexual History concerns None reported Physical exam in the last year? Yes Medications Is the patient compliant with medications? Yes Does the patient have Ludwig Guardian in place? Not applicable Does the patient use complimentary health approaches? No Trauma/Abuse History History of trauma? No Questionnaires Binge Eating Scale Group 1 A. I don't feel self-conscious about my wt. or body size when I'm with others. B. I feel concerned about how I look to others, but it normally does not make me fell disappointed with myself C. I do get self-conscious about my appearance and wt. which makes me feel disappointed in myself. D. I feel very self-conscious about my wt. and frequently I feel intense shame and disgust for myself. I try to avoid social contacts because of my self-consciousness. Response Group 1: A Group 2 A. I don't have any difficulty eating slowly in the proper manner. B. Although I seem to gobble down foods, I don't end up feeling stuffed because of eating to much. C. At times, I tend to eat quickly and then, I feel uncomfortably full afterwards. D. I have the habit of bolting down my food, without really chewing it. When this happens I usually feel uncomfortably stuffed because I've eaten to much. Response Group 2: A Group 3 A. I feel capable to control my eating urges when I want to. B. I feel like I have failed to control my eating more than the average person. C. I feel utterly helpless when it comes to feeling in control of my eating urges. D. Because I feel so helpless about controlling my eating I have become very desperate about trying to get control. Response Group 3: A Group 4 A. I don't have the habit of eating when I'm bored. B. I sometimes eat when I'm bored, but often I'm able to get busy and get my mind off food. C. I have a regular habit of eating when I'm bored, but occasionally, I can use some other activity to get my mind off eating. D. I have a strong habit of eating when I'm bored. Nothing seems to help me breath the habit. Response Group 4: A Group 5 A. I'm usually physically hungry when I eat something. B. Occasionally, I eat something on impulse even though I really am not hungry. C. I have the regular habit of eating foods, that I might not really enjoy, to satisfy a hungry feeling even though physically, I don't need the food. D. Although I'm not physically hungry, I get a hungry feeling in my mouth that only seems to be satisfied when I eat a food, like sandwich, that fills my mouth. Sometimes, when I eat the food to satisfy my mouth hunger, I then spit the food out so I won't gain weight. Response Group 5: B Group 6 A. I don't feel any guilt or self-hate after I overeat. B. After I overeat, occasionally I feel guilt or self-hate. C. Almost all the time I experience strong guilt or self-hate after I overeat. Response Group 6: B Group 7 A. I don't lose total control of my eating when dieting even after periods when I overeat. B. Sometimes when I eat a forbidden food on a diet, I feel like I blew it and eat even more. C. Frequently, I have the habit of saying to myself, I've blown it now, why not go all the way, when I overeat on a diet. When that happens I eat more. D. I have a regular habit of starting a strict diets for myself but I break the diets by going on an eating binge. My life seems to be either a feast or famine. Response Group 7: A Group 8 A. I rarely eat so much food that I feel uncomfortably stuffed afterwards. B. Usually about once a month, I each such a quantity of food, I end up feeling very stuffed. C. I have regular periods during the month when I eat large amounts of food, either at mealtime or at snacks. D. I eat so much food that I regularly feel quite uncomfortable after eating and sometimes a bit nauseous. Response Group 8: A Group 9 A. My level of calorie intake does not go up very high or go down very low on a regular basis. B. Sometimes after I overeat, I will try to reduce my caloric intake to almost nothing to compensate for the excess calories I've eaten. C. I have a regular habit of overeating during the night. It seems that my routine is not to be hungry in the morning but overeat in the evening. D. In my adult years, I have had week-long periods where I practically starve myself. This follows periods when I overeat. It seems I live a life of either feast or famine. Response Group 9: B Group 10 A. I usually am able to stop eating when I want to. I know when enough is enough. B. Every so often, I experience a compulsion to eat which I can't seem to control. C. Frequently, I experience strong urges to eat which I seem unable to control, but at other times I can control my eating urges. D. I feel incapable of controlling urges to eat. I have a fear of not being able to stop eating voluntarily. Response Group 10: A Group 11 A. I don't have any problem stopping eating when I feel full. B. I usually can stop eating when I feel full but occasionally overeat leaving me feeling uncomfortably stuffed. C. I have a problem stopping eating once I start and usually I feel uncomfortably stuffed after I eat a meal. D. Because I have a problem not being able to stop eating when I want, I sometimes have to induce vomiting to relieve my stuffed feeling. Response Group 11: A Group 12 A. I seem to eat just as much when I'm with others, Family social gatherings as when I'm by myself. B. Sometimes, when I'm with other persons, I don't eat as much as I want to eat because I'm self-conscious about my eating. C. Frequently, I eat only a small amount of food when others are present, because I'm very embarrassed about my eating. D. I feel so ashamed about overeating that I pick times to overeat when I know no one will see me. I feel like a closet eater. Response Group 12: A Group 13 A. I eat three meals a day with only an occasional between meal snack. B. I eat 3 meals a day, but I also normally snack between meals. C. When I am snacking heavily, I get in the habit of skipping regular meals. D. There are regular periods when I seem to be continually eating, with no planned meals. Response Group 13: B Group 14 A. I don't think much about trying to control unwanted eating urges. B. At least some of the time, I feel my thoughts are pre-occupied with trying to control my eating urges. C. I feel that frequently I spend much time thinking about how much I ate or about trying not to eat anymore. D. It seems to me that most of my waking hours are pre-occupied by thoughts about eating or not eating. I feel like I'm constantly struggling not to eat. Response Group 14: A Group 15 A. I don't think about food a great deal. B. I have strong craving for food but they last only for brief periods of time. C. I have days when I can't seem to think about anything else but food. D. Most of my days seem to be pre-occupied with thoughts about food. I feel like I live to eat. Response Group 15: A Group 16 A. I usually know whether or not I'm physically hungry. I take the right portion of food to satisfy me. B. Occasionally, I feel uncertain about knowing whether or not I'm physically hungry. A these times it's hard to know how much food I should take to satisfy me. C. Even though I might know how many calories I should eat, I don't have any idea what is a normal amount of food for me. Response Group 16: A Binge Eating Score: 4 Score less than 17 Minimal Risk Score between 18-26 Moderate Risk Score between 27-46 High Risk Assessment & Plan Assessment & Plan (1) Adjustment disorder: Code(s): F43.20 - Adjustment disorder, unspecified Plan PT will return in 2 weeks to complete assessment. Next vaishali: 10/04/2024, at 1pm, via Telehealth. Telehealth Telehealth Telehealth Platform: [facility] Location of provider rendering services: other Location of patient: address on file Patient Identification confirmed using: Name, : Yes Telehealth method: video Patient verbally consented to treatment: Yes Patient verbally consented to billing insurance company: Yes Patient informed of any privacy concerns related to visit: Yes Coding Level of Care Code Established Pt Tele Psytx >53 mins ([id number]) Patient Type Established Diagnoses Adjustment disorder F43.20
== END 2024-09-20 14:30 | disposition home or self-care (01) ==
LOC: HO.HBST 10:08
PROVIDERS: PCP Nurse Practitioner Family; Visit Provider Counselor Mental Health
DX: F43.20 Adjustment disorder, unspecified (principal)
CPT/HCPCS: 90837

== ENCOUNTER 2024-10-04 13:16 | Outpatient (AMB) | payer OTHER, SELFPAY ==
--- NOTE | 2024-10-04 13:00 | A.OFFWM_ITS ---
Intake Intake Visit Reasons: VIDEO F/U Allergies codeine [CODEINE] Allergy (Severe, Verified 09/13/24 14:56) SWELLING doxycycline [DOXYCYCLINE] Allergy (Severe, Verified 09/13/24 14:56) SWELLING Seasonal Allergies Allergy (Intermediate, Verified 09/13/24 14:56) Runny Nose [facility] Medical History Uncontrolled type 2 diabetes mellitus with hyperglycemia Mixed hypercholesterolemia and hypertriglyceridemia BMI 37.0-37.9, adult Obesity DARIN (obstructive sleep apnea) GERD (gastroesophageal reflux disease) Diabetes mellitus Asthma Anxiety HTN (hypertension) Umbilical hernia Surgical History H/O umbilical hernia repair History of surgery Hx of bilateral breast reduction surgery History of esophagogastroduodenoscopy (EGD) H/O section History of appendectomy H/O eye surgery History of tonsillectomy Family History Mother HTN (hypertension) Diabetes Father Heart disease Social History Household Members: Spouse and Children Housing: House Alcohol intake: current Alcohol intake frequency: other Patient Tobacco Use Status: Never used Tobacco e-Cigarette/Vaping Use: Never Used Second Hand Smoke Exposure: No service: No Current occupational status: employed 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 PT reports she is looking for alternatives to achieve a healthier lifestyle, however she has been struggling to follow meal plan and is not exercising which are important factors into modifying behavior for a sustained weight-loss. PT has been cleared from standpoint as there are no reported MH concerns or safety factors that would prevent her from surgery, however she needs support and guidance making the necessary behavioral changes as part of her commitment with this program. We will follow up after the holidays per client request. Presenting Concerns Referral Source WMP Provider - Pt started on 07/29/[address] Sarabia Reason for referral Completion of behavioral health assessment as part of process for weight-loss surgery. Precipitating Event Obesity. Living Situation Current Living Situation Own At risk of losing current housing? No Satisfied with current living situation? Yes Comments Pt lives with her , 18 y/o daughter and the family pets, 1 dog and 2 parrots. Food/Weight/Diet0 Expectations of change The initial goal to lose 10% of her weight before surgery, which is about 21lbs. Ultimate weight goal: 192lbs before surgery. she started the program on 07/29/24 at 213Lbs, and last weight was 209Lbs. Patient wants to support with weight loss and maintace. She is also dealing with type 2 diabetes and in a verge to use insulin and she wants to prevent that. PT is implementing the following: Current meal plan: 2 shakes, 2 bars, 1 meal (8F/8F). using celebrate powder and zone fit bars. Exercise plan: None. PT reports she struggles with the morning shake. History/Relationship with food Pt reports she tries to be mindful with her eating since she and her were diagnosed with diabetes. Example of meals before starting the program: Breakfast: @9am - 1 slide of bread, 2 eggs, coffee or a ham/cheese/egg sandwich. Am snack: dry cereal. Lunch: @2pm, leftovers. Meat/ pasta/veggies or salad or skip. PM snack: None. Dinner: @6-7pm. chicken, rice or pasta or boiled plantains, veggies/salad. night snacks: None. Drinks/Liquids: 2 cups of coffee, 2-3 water bottle at day. History/Relationship with weight She has always been chubby. She has been size XL several years ago, however, in the last years she changed her job from being very active and moving sorund to being seated most of the day. She is not used to exercise, and it's been hard to be consistent with exercise plan. In the last 10 years, the patient's Lowest weight was 202Lbs and highest 232Lbs History/Relationship with dieting Eating changes, walking. [place] 30units- [id number] for diabetes but she lost 10Lbs. Binge Eating Do you frequently eat large amounts of food in short periods of time, not feeling physically hungry? No Do you feel out of control when you eat a large amount of food in a short period of time? No Do you eat large amounts of food rapidly and typically alone? No Night Eating Do you wake up at least once during the night to eat? No If you wake up in the night, do you find that it is necessary to eat something in order to fall back asleep? No Do you have little or no appetite in the morning and feel very hungry in the evening, often overeating between dinner and when you go to bed? No Social History Family history and relationship PT is 20 years ago. She has adult 2 children, oldest son who is 22 y/o form previous relationship, and daughter is 18 y/o. Father when she was 14 y/o. she emancipated at age 16 and at age 18. Mother is alive and lives close to her. She has 2 siblings. Pt reports growing up had dysfunctional family relationships as her mother has MH issues. Pt currently doesn't have relationship with mom and 1 sibling. Parental/Familial devops obligations 18 y/o daughter. Developmental history and status None reported Social support , children, brother (Ney). Pt is very social and have some close friends. Community support None. Amish/Spirituality Doesn't belong to any hindu or latter-day. Growing up attended Evangelical latter-day. She has a strong foundation but doesn't practice. Cultural/Ethnic information PT was born and [place] in [place] and lives [place] years ago. Legal Involvement and History Current or historical involvement with the legal system? None reported Education Highest grade completed Associate Degree Preferred learning style Visual Currently enrolled in educational program? No Interested in further educational program? 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 ) Wants help to find employment? No Meaningful activities Travel, Family activities, cooking. Financial Situation Describe current financial situation Comfortable Financial assistance? None Service Service? No Mental Health and Addiction Treatment Current/Past substance abuse? No Comments Alcohol: None Cigarettes/Tobacco: None Cannabis/Edibles: None. Current/Past addictive behavior concerns? No Psychiatric history PT reports she attended counseling several years ago. PT reports she has a history of anxiety and has lapses with irritable mood but has never been diagnosed with depression or any other MH issue. In the past she used Vistaril 25mg when had some sadness, irritability or anxiety issues, these are usually triggered by the holiday season and Hx of family issues. PT denies ever been in crisis or inpatient for mental health. There is no history and/or current concern about SI/Sa and self-harm or other harm. Medical and Physical Health Summary Additional Medical History not covered in history None reported Sexual History concerns None reported Physical exam in the last year? Yes Pain Screening Current pain? No Pain in the last few months? No Medications Is the patient compliant with medications? Yes Does the patient have Ludwig Guardian in place? Not applicable Does the patient use complimentary health approaches? No Trauma/Abuse History History of trauma? No Questionnaires PHQ-9 Over the last 2 weeks, how often have you been bothered by any of the following problems? 1. Little interest or pleasure in doing things: several days 2. Feeling down, depressed, or hopeless: several days ( Sad ) 3. Trouble falling or staying asleep, or sleeping too much: not at all 4. Feeling tired or having little energy: not at all 5. Poor appetite or overeating: not at all 6. Feeling bad about yourself - or that you are a failure or have let yourself or your family down: not at all 7. Trouble concentrating on things, such as reading the newspaper or watching television: not at all 8. Moving or speaking so slowly that other people could have noticed. Or the opposite - being so fidgety or restless that you have been moving around a lot more than usual: not at all 9. Thoughts that you would be better off or of hurting yourself in some way: not at all Total score: 2 Depression Screening Interpretation: Negative Depression Screening Done: Yes 19120 - PHQ-9 Billing: Yes Source: Developed by Drs. Saud Cantu, Lalitha Loco, Evaristo Schultz and colleagues, with an educational deon from [employer]. Assessment & Plan Assessment & Plan (1) Adjustment disorder: Code(s): F43.20 - Adjustment disorder, unspecified Plan: PT has been cleared from BH standpoint. She will be seen in about 6 weeks for support. Next vaishali: 11/16/2023 at 11am, Telehealth. Telehealth Telehealth Telehealth Platform: [employer] Location of provider rendering services: other Location of patient: address on file Patient Identification confirmed using: Name, : Yes Telehealth method: video Patient verbally consented to treatment: Yes Patient verbally consented to billing insurance company: Yes Patient informed of any privacy concerns related to visit: Yes Minutes spent on Phone/Video with Pt.: 60 Coding Level of Care Code Established Pt Tele Psytx >53 mins (23369) Patient Type Established Diagnoses Adjustment disorder F43.20 Additional Codes PHQ-9 - 48719 - PHQ-9 Billing: Yes ([id number]) Time Spent (min) 60
== END 2024-10-04 14:33 | disposition home or self-care (01) ==
LOC: HO.HBST 13:16
PROVIDERS: PCP Nurse Practitioner Family; Visit Provider Counselor Mental Health
DX: F43.20 Adjustment disorder, unspecified (principal)
CPT/HCPCS: 90837

== ENCOUNTER → 2024-10-04 13:16 | Outpatient (BNVA) | payer OTHER, SELFPAY | PROVIDERS: PCP Nurse Practitioner Family; Visit Provider Counselor Mental Health ==

== ENCOUNTER 2024-10-08 11:52 | Emergency (ER) | payer OTHER, SELFPAY ==
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
[2024-10-08 12:06] VITALS: BP 112/64; PULSE 84; RESP 20; TEMP 36.4; O2SAT 97; BMI 37.4
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
[2024-10-08 13:35] VITALS: BP 112/64; PULSE 84; RESP 20; TEMP 36.4; O2SAT 97
== END 2024-10-08 13:35 | disposition home or self-care (01) ==
PROVIDERS: Emergency Provider Emergency Medicine; PCP Nurse Practitioner Family
DX: Z04.1 Encounter for examination and observation following transport accident (principal); M19.012 Primary osteoarthritis, left shoulder
CPT/HCPCS: 72072; 73030; 99282; 99283

== ENCOUNTER 2024-10-20 12:33 | Emergency (ER) | payer OTHER, SELFPAY ==
[2024-10-20 12:59] VITALS: BP 126/79; PULSE 78; RESP 16; TEMP 36.3; O2SAT 98; BMI 37.0
--- NOTE | 2024-10-20 13:04 | ED_ITS ---
HPI - General Adult General Chief complaint: General Medical Stated complaint: rectal pain Time Seen by Provider: 10/20/24 16:15 Source: patient Mode of arrival: ambulatory Limitations: no limitations History of Present Illness ED Provider: Uma Pritchard PA-C HPI narrative: 43-year-old female with a history of asthma, anxiety, hypertension who presents to the ER for evaluation of rectal pain for the last 1 week. She reports a burning sensation in her rectum, worse with walking, after having a bowel movement. She also reports intermittent bright red blood per rectum when she wipes. She has a history of hemorrhoids in the past. She denies constipation. Last bowel movement was this morning and was normal without blood. She denies any associated abdominal pain, nausea or vomiting. She has been using [id number] creams and suppositories with no relief in the pain. MD complaint: Rectal pain Onset (ago): week(s) (1) Location: buttocks Radiation: non-radiation Severity: severe Severity scale (1-10): 9 Quality: burning Pain Consistency: intermittent Relieving factors: rest Exacerbating factors: other (walking, BM) Associated symptoms: denies other symptoms Treatments prior to arrival: none Related Data Home Medications ?Medication ?Instructions ?Recorded ?Confirmed cholecalciferol (vitamin D3) 25 25 mcg PO DAILY 02/07/21 08/16/24 mcg (1,000 unit) capsule (Vitamin D3) pioglitazone 15 mg tablet 15 mg PO DAILY 09/14/24 09/14/24 Previous Rx's ?Medication ?Instructions ?Recorded lisinopril 20 1 tab PO DAILY 1 month #90 tabs 06/23/24 mg-hydrochlorothiazide 12.5 mg tablet alprazolam 0.5 mg tablet 0.5 mg PO ONCE PRN sleep 1 day #1 08/05/24 tab blood sugar diagnostic (FreeStyle #100 ea 09/13/24 Lite Strips) blood-glucose meter (FreeStyle #1 ea 09/13/24 Lite Meter kit) blood-glucose meter,continuous #1 ea 09/13/24 (FreeStyle Patrick 3 [place]) blood-glucose sensor (FreeStyle #2 ea 09/13/24 Patrick 3 Sensor device) glucose 4 gram chewable tablet 16 g (4 x 4 gram) PO Q15M PRN 11/05/24 (Dex4 Glucose Quick Dissolve) hypoglycemia #10 tabs lancets 28 gauge (FreeStyle #100 ea 09/13/24 Lancets) metformin 500 mg tablet,extended 1,000 mg (2 x 500 mg) PO BID 90 09/13/24 release 24 hr days #360 tabs tirzepatide 2.5 mg/0.5 mL 2.5 mg (0.5 mL) subcut QWEEK #2 mL 09/13/24 subcutaneous pen injector (Mounjaro) hydrocortisone 1 %-pramoxine 1 % 1 appl DE BEDTIME #10 grams 10/20/24 rectal foam (Proctofoam HC) hydrocortisone 2.5 % topical cream 1 appl DE BEDTIME PRN hemorrhoids 10/20/24 with perineal applicator #30 grams (Anusol-HC) Allergies Allergy/AdvReac Type Severity Reaction Status Date / Time codeine [CODEINE] Allergy Severe SWELLING Verified 10/20/24 13:00 doxycycline [DOXYCYCLINE] Allergy Severe SWELLING Verified 10/20/24 13:00 Seasonal Allergies Allergy Intermediate Runny Nose Verified 10/20/24 13:00 Review of Systems 2 Review of Systems: Yes all other systems are reviewed and are negative PMF Past Medical History Medical History Uncontrolled type 2 diabetes mellitus with hyperglycemia Mixed hypercholesterolemia and hypertriglyceridemia BMI 37.0-37.9, adult Obesity DARIN (obstructive sleep apnea) GERD (gastroesophageal reflux disease) Diabetes mellitus Asthma Anxiety HTN (hypertension) Umbilical hernia Surgical History H/O umbilical hernia repair History of surgery Hx of bilateral breast reduction surgery History of esophagogastroduodenoscopy (EGD) H/O section History of appendectomy H/O eye surgery History of tonsillectomy Family History Family History Mother HTN (hypertension) Diabetes Father Heart disease Social History Social History Household Members: Spouse and Children Housing: House Alcohol intake: current Alcohol intake frequency: other Patient Tobacco Use Status: Never used Tobacco e-Cigarette/Vaping Use: Never Used Second Hand Smoke Exposure: No service: No Current occupational status: employed 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 Oriented X3. No acute distress. HEENT: normal inspection Neck: Normal inspection. CVS: Normal heart rate and rhythm. Pulses normal. Respiratory: No respiratory distress. Breath sounds normal. Abdomen: Soft and nontender. +BS x4 BRENT: external hemorrhoids present, nonthrombosed. internal hemorrhoid present at 7 oclock w/ tenderness, no fluctuance, no bleeding. no appreciated fissure Skin: Skin warm and dry. Normal skin color. Normal skin turgor. No rashes. Extremities: No lower extremity edema. No joint swelling. Neuro/psych: grossly normal, nonfocal Course Course Course Narrative: This is a rapid medical exam performed by Tracey Hercules PA-C. The patient is a 43-year-old female with a history of hemorrhoids, obesity, hypertension, diabetes, hyperlipidemia, who presents with rectal pain x1 week. Patient denies external forearm swelling. She has been trying numerous [id number] products without relief from symptoms. We will obtain screening labs in the event the patient requires a CT scan. She is hemodynamically stable and can return to the waiting room pending her full medical assessment. Medications Administered Discontinued Medications Generic Name Dose Route Start Last Admin Trade Name Freq PRN Reason Stop Dose Admin Lidocaine HCl 15 ml 10/20/24 17:07 10/20/24 17:21 Lidocaine Hcl Viscous 2 % 15 Ml Solution MUCOUS MEM 10/20/24 17:08 15 ml ONCE ONE Administration Medical Decision Making Medical Decision Making MDM Narrative: 43-year-old female presents to the ER for evaluation of rectal pain for the last 1 week. She has also had intermittent rectal bleeding. Examination today is consistent with inflamed internal hemorrhoid. Will prescribe Anusol, we also discussed other supportive care measures including stool softeners and Sitz baths. Topical lidocaine provided here. We discussed outpatient follow-up with GI and surgery. Stable for discharge home. Return precautions were discussed. Differential Diagnosis Differential Diagnoses: The differential diagnosis associated with the presentation includes External hemorrhoids, internal hemorrhoids, anal fissure, rectal abscess, rectocele Lab Data MDM Lab Attestation statement: I reviewed the patient's lab results. 10/20/24 13:11 10/20/24 13:11 Labs: Lab Results 10/20/24 Range/Units 13:11 WBC 5.1 (4.8-10.8) X10*3/uL RBC 4.08 L (4.20-5.50) X10*6/uL Hgb 12.2 (12.0-16.0) g/dl Hct 35.4 L (37.0-47.0) % MCV 86.8 (80.0-98.0) fL MCH 29.9 (27.0-33.0) pg MCHC 34.5 (31.0-35.0) g/dl RDW 12.1 (11.0-16.0) % Plt Count 259 (160-400) X10*3/uL MPV 9.4 (9.4-12.3) fL Immature Gran % (Auto) 0.4 (0.0-0.4) % Neut % (Auto) 56.0 (45-73) % Lymph % (Auto) 34.2 (20-40) % [place] % (Auto) 8.2 (2-11) % Eos % (Auto) 1.0 (0-4) % Baso % (Auto) 0.2 (0-2) % Lymph # (Auto) 1.8 (1.2-4.9) X10*3/uL [place] # (Auto) 0.4 (0.1-1.2) X10*3/uL Eos # (Auto) 0.1 (0.0-0.4) X10*3/uL Baso # (Auto) 0.0 (0.0-0.2) X10*3/uL Abs Immat Gran (auto) 0.02 (0.00-0.03) X10*3/uL Absolute Neuts (auto) 2.9 (2.0-8.3) x10*3/uL Absolute Nucleated RBC 0.000 (0.0-0.012) X10*3/uL Nucleated RBC % (auto) 0.0 (0.0-0.2) /100WBC Sodium 139 (135-145) mmol/L Potassium 4.2 (3.3-5.1) mmol/L Chloride 106 (96-108) mmol/L Carbon Dioxide 25 (22-29) mmol/L Anion Gap 12 (12-20) BUN 15 (9-16) mg/dL Creatinine 0.87 (0.5-1.4) mg/dL Estim Creat Clear Calc 91.3 Estimated GFR > 60 Random Glucose 211 H (60-115) mg/dL Calcium 9.1 (8.4-10.2) mg/dL Magnesium 2.1 (1.6-2.6) mg/dL Beta HCG, Quant < 2 mIU/mL External Record Review External record reviewed: Prior outpatient labs and Prior outpatient radiology Tests considered The following testing was considered but not selected: Considered CT scan of the pelvis with contrast to rule out rectal abscess however there was no fluctuance or evidence of abscess on examination Prescription Management I considered prescription management with: Pain Medication and Antibiotic Chronic Conditions Patient?s care impacted by: Hypertension Critical Care Time Critical Care Time Critical Care Time: No Discharge Plan Discharge Clinical Impression: Inflamed internal hemorrhoid Patient Disposition: Home, Self-Care Instructions: Hemorrhoids (DC) Additional Instructions: use warm sitz baths 2x per day take colace to keep stools soft use the prescribed medication nightly follow up with general surgery take motrin and tylenol as needed for pain Prescriptions: New Proctofoam HC 1-1 % foam 1 appl DE BEDTIME Qty: 10 0RF hydrocortisone [Anusol-HC] 2.5 % cream with perineal applicator 1 appl DE BEDTIME PRN (Reason: hemorrhoids) Qty: 30 0RF No Action lisinopril-hydrochlorothiazide 20-12.5 mg tablet 1 tab PO DAILY 30 Days Qty: 90 0RF cholecalciferol (vitamin D3) [Vitamin D3] 25 mcg (1,000 unit) Capsule 25 mcg PO DAILY pioglitazone 15 mg tablet 15 mg PO DAILY alprazolam 0.5 mg tablet 0.5 mg PO ONCE PRN (Reason: sleep) 1 Days Qty: 1 0RF Rx Instructions: Take 1 tablet 1 hour prior to procedure metformin 500 mg tablet extended release 24 hr 1,000 mg PO BID 90 Days Qty: 360 3RF Mounjaro 2.5 mg/0.5 mL pen injector 2.5 mg subcut QWEEK Qty: 2 0RF Rx Instructions: for 4 weeks (DME) FreeStyle Lite Strips Strip See Rx Instructions .ROUTE .MEDSUPPLY Qty: 100 5RF Rx Instructions: As directed to check glucose 3 times daily (DME) blood-glucose meter [FreeStyle Lite Meter] Kit See Rx Instructions .ROUTE .MEDSUPPLY Qty: 1 0RF Rx Instructions: as directed to monitor blood glucose (DME) FreeStyle Patrick 3 Sensor Device See Rx Instructions .ROUTE .MEDSUPPLY Qty: 2 11RF Rx Instructions: apply new sensor every 14 days (DME) FreeStyle Patrick 3 [place] Misc See Rx Instructions .ROUTE .MEDSUPPLY Qty: 1 0RF Rx Instructions: Use daily to monitor blood glucose levels continuously. (DME) lancets [FreeStyle Lancets] 28 gauge misc See Rx Instructions .ROUTE .MEDSUPPLY Qty: 100 5RF Rx Instructions: Use to monitor blood glucose 3 times daily. glucose [Dex4 Glucose Quick Dissolve] 4 gram tablet,chewable 16 g PO Q15M PRN (Reason: hypoglycemia) Qty: 10 3RF Rx Instructions: until symptoms of low blood sugar are controlled Referrals: [facility] [Provider Group] Aviva Ribeiro, [employer] STAKER-BC [Primary Care Provider] - Print Language: Romanian
[2024-10-20 13:14] LABS: MANUAL DIFF FLAG NO
[2024-10-20 13:15] LABS: Basophils Percent Auto 0.2 % (0-2); Eosinophils Absolute Auto 0.1 X10*3/uL (0.0-0.4); Hematocrit 35.4 % (37.0-47.0); Hemoglobin 12.2 g/dl (12.0-16.0); Imm Gran Abs Auto 0.02 X10*3/uL (0.00-0.03); Imm Gran Pct Auto 0.4 % (0.0-0.4); Lymphocytes Absolute Auto 1.8 X10*3/uL (1.2-4.9); Lymphocytes Percent Auto 34.2 % (20-40); Mean Corpuscular HGB Conc 34.5 g/dl (31.0-35.0); Mean Corpuscular Hemoglobin 29.9 pg (27.0-33.0); Mean Corpuscular Volume 86.8 fL (80.0-98.0); Mean Platelet Volume 9.4 fL (9.4-12.3); Monocytes Absolute Auto 0.4 X10*3/uL (0.1-1.2); Monocytes Percent Auto 8.2 % (2-11); Neutrophils Absolute Auto 2.9 x10*3/uL (2.0-8.3); Platelet Count 259 X10*3/uL (160-400); Red Blood Count 4.08 X10*6/uL (4.20-5.50); Red Cell Distribution Width 12.1 % (11.0-16.0); White Blood Count 5.1 X10*3/uL (4.8-10.8)
[2024-10-20 13:41] LABS: Anion Gap 12 (12-20); Blood Urea Nitrogen 15 mg/dL (9-16); Calcium 9.1 mg/dL (8.4-10.2); Carbon Dioxide 25 mmol/L (22-29); Chloride 106 mmol/L (96-108); Creatinine Clr Calc Pharmacy 91.3; Estimated Glomerular Filt Rate > 60; Glucose Random 211 mg/dL (60-115); HCG Quantitative < 2 mIU/mL; Magnesium 2.1 mg/dL (1.6-2.6); Potassium 4.2 mmol/L (3.3-5.1); Sodium 139 mmol/L (135-145)
[2024-10-20] MEDS: Lidocaine HCl Viscous 2 % 15 ML SOLUTION MUCOUS MEM (17:21)
[2024-10-20 18:40] VITALS: BP 126/79; PULSE 78; RESP 16; TEMP 36.3; O2SAT 98
== END 2024-10-20 18:40 | disposition home or self-care (01) ==
PROVIDERS: Physician Assistant Medical; Emergency Provider Emergency Medicine; PCP Nurse Practitioner Family
DX: K64.8 Other hemorrhoids (principal)
CPT/HCPCS: 36415; 80048; 83735; 84702; 85025; 99282; 99283

== ENCOUNTER 2024-10-28 14:46 | Outpatient (AMB) | payer OTHER, SELFPAY ==
--- NOTE | 2024-10-28 14:47 | MHC.OFFVIS ---
Vital Signs 10/28/24 14:51 BP 106/74 Blood Pressure Location Rt brachial Position Sitting Pulse 93 Pulse Source Pulse Oximeter Intake Visit Reasons: Type II DM/LVM Intake Note: Patient present today to follow up on Type 2 Diabetes Mellitus. Last Diabetic Eye exam: Aug 2024 Last Podiatry Visit: Does not see a Forging Roll Operator Random Glucose: 261 mg/dl HgA1C: 9.2% 10/28/24 Director Of Optimization Required: No Accompanied by: Self / Same As Patient Allergies codeine [CODEINE] Allergy (Severe, Verified 10/28/24 14:52) SWELLING doxycycline [DOXYCYCLINE] Allergy (Severe, Verified 10/28/24 14:52) SWELLING Seasonal Allergies Allergy (Intermediate, Verified 10/28/24 14:52) Runny Nose HPI Comments Details: This is a 43-year-old female with a past medical history of anxiety, GERD, obesity, type 2 diabetes, hypertensive retinopathy and asthma presenting for diabetes management. The patient was diagnosed with diabetes 14 years ago. She has a family history of Type II diabetes (brother and mother) and Type I DM (maternal aunt). Hemoglobin a1c 10.1% 08/05/2024. Hemoglobin a1c 9.2% 10/28/24. Patient forgot her glucometer. She reports the following blood sugars: Fasting 150-160 Postprandial 200-250 Current medication regimen: Actos 15 mg daily, metformin 500 mg extended release 2 capsules twice daily and Mounjaro 2.5 mg weekly Janumet not covered by insurance, and there was an issue getting prior authorization completed. Four years ago she was on Trulicity. Patient tried Ozempic which cause acid reflux and nausea and so she did not continue. Compliance issues: none Diet reviewed previously: Breakfast-eggs, turkey, coffee w/ sugar cream and monk fruit Only eats low carb bread snacks on chickpeas low carbohydrate meals for lunch and dinner No juice or soda or alcohol Nonsmoker Hypoglycemia symptoms: none Hyperglycemia symptoms: None Eye exam: [facility], up-to-date. Microvascular complications: Mild neuropathy in feet Macrovascular complications: none Patient had liver elastography done on 08/22/2024 which showed hepatic steatosis and stable cholelithiasis from 2020. ROS: Constitutional: No unexplained weight loss, fever, chills, fatigue or night sweats. Eyes: No vision changes, blurry vision, double vision, eye pain Respiratory: No shortness of breath, cough or sputum production. Cardiovascular: No chest pain or pedal edema. Neurologic: No headache, dizziness, syncope Skin: No rash or wounds Physical exam: Constitutional: Alert, in no distress. Respiratory: Clear to auscultation. Cardiovascular: S1 S2 regular. No murmurs. [facility] Medical History (Updated 10/28/24 @ 15:38 by WADE Sandoval) Hepatic steatosis Uncontrolled type 2 diabetes mellitus with hyperglycemia Mixed hypercholesterolemia and hypertriglyceridemia BMI 37.0-37.9, adult Obesity DARIN (obstructive sleep apnea) GERD (gastroesophageal reflux disease) Diabetes mellitus Asthma Anxiety HTN (hypertension) Umbilical hernia Surgical History H/O umbilical hernia repair History of surgery Hx of bilateral breast reduction surgery History of esophagogastroduodenoscopy (EGD) H/O section History of appendectomy H/O eye surgery History of tonsillectomy Family History Mother HTN (hypertension) Diabetes Father Heart disease Social History Household Members: Spouse and Children Housing: House Alcohol intake: current Alcohol intake frequency: other Patient Tobacco Use Status: Never used Tobacco e-Cigarette/Vaping Use: Never Used Second Hand Smoke Exposure: No service: No Current occupational status: employed 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 Current occupational exposures/hazards: No Cognitive needs: No Hearing needs: No Vision needs: No Physical Exam Vital Signs: Last Vital Signs Pulse 93 10/28/24 14:51 BP 106/74 10/28/24 14:51 BMI result Body Mass Index 37.4 Results AMB Hemoglobin A1c AMB Hemoglobin A1c 9.2 % Last Edit by SHAZIA De Leon on 10/28/24 15:14 Results Reviewed Results Reviewed: Laboratory Last Values Glucose (Clinic) 261 mg/dL (60-115) H 10/28/24 14:58 Hgb A1c (Clinic) 9.2 % (4.0-6.0) H 10/28/24 15:13 Assessment & Plan Assessment & Plan (1) Uncontrolled type 2 diabetes mellitus with hyperglycemia: Code(s): E11.65 - Type 2 diabetes mellitus with hyperglycemia Category: Medical (2) Mixed hypercholesterolemia and hypertriglyceridemia: Code(s): E78.2 - Mixed hyperlipidemia Category: Medical Plan In summary this is a 43-year-old female with uncontrolled type 2 diabetes. Continue metformin extended release 500 mg 2 tablets twice daily. Continue Actos 15 mg daily for now. Increase Mounjaro to 5 mg once weekly. Side effects reviewed. She was followed by the bariatric surgery program, but she has decided not to proceed with surgery. Patient declined The right bmi vaishali. Discussed pathophysiology of Type II Diabetes Mellitus with the patient in detail.? I explained the prison risks and complications associated with uncontrolled diabetes including nephropathy, neuropathy, peripheral vascular disease, retinopathy, increased risk of heart disease and stroke.? Discussed lifestyle modification with the patient. Recommended 30 minutes of moderately vigorous exercise 5 days per week to promote weight loss. She declines referral to dietitian/museum educator. Reviewed proper treatment of hypo and hyperglycemia. Follow up in 6 weeks for type 2 diabetes. Orders: Orders AMB Hemoglobin A1c Today E11.8 - Type 2 diabetes mellitus with unspecified complications Medications: New tirzepatide (Mounjaro) 5 mg (0.5 mL) subcut QWEEK 2 mL 1RF Coding Level of Care Code Est Pt Level 4 (45292) Complex EM visit Add On G2211 Diagnoses Uncontrolled type 2 diabetes mellitus with hyperglycemia E11.65 Mixed hypercholesterolemia and hypertriglyceridemia E78.2
[2024-10-28 14:51] VITALS: BP 106/74; PULSE 93
[2024-10-28 15:04] LABS: Glucose, Whole Blood 261 mg/dL (60-115)
== END 2024-10-28 15:40 | disposition home or self-care (01) ==
PROVIDERS: PCP Nurse Practitioner Family; Visit Provider Physician Assistant Medical
DX: E11.65 Type 2 diabetes mellitus with hyperglycemia (principal); E78.2 Mixed hyperlipidemia; E11.8 Type 2 diabetes mellitus with unspecified complications

== ENCOUNTER 2024-12-09 15:42 | Outpatient (AMB) | payer OTHER, SELFPAY ==
--- OUTSIDE RECORDS SUMMARY | 2024-12-09 15:43 | XMS_ITS | Clinical Summary ---
Author Organization [facility] Address [address] [place] [address] Care Team Providers Care Parks Recreation Director Name Role Phone Mike Caicedo Primary Care Provider [phone] Source Comments PLEASE NOTE, if this patient is a minor, it may be UNLAWFUL to discuss sensitive information that is contained in these records (such as FAMILY PLANNING, MENTAL HEALTH or SUBSTANCE ABUSE) with the minor patient's parent or other person without the patient's specific authorization.[facility] Medications VITAMIN D-3 2,000 unit capsule Take 40 mg by mouth once daily. 12 6 Active hydrOXYzine pamoate (VISTARIL) 50 mg capsuleIndication s:Anxiety state Take 1 Cap by mouth 3 (three) times daily as needed for itching 90 Cap 0 6 Active metFORMIN (GLUCOPHAGE) 1,000 mg tabletIndications :Type 2 diabetes mellitus without complication, without long-term current use of insulin ([facility]) Take 1 Tab by mouth 2 (two) times daily with a meal 60 Tab 11 7 Active FREESTYLE INSULINX TEST STRIPS strips TEST 2 TIMES A DAY 100 Each 5 7 Active FREESTYLE LANCETS 28 gauge TEST 2 TIMES A DAY 100 Each 11 7 Active vit G-owvviayg-ofcsjw icone (CETAPHIL) lotionIndications :Flexural eczema Apply topically as needed for other reason (eczema) 473 mL 3 7 Active lisinopriL-hydroc hlorothiazide 20-12.5 mg per tabletIndications :Essential hypertension TAKE 1 TABLET BY MOUTH EVERY DAY 14 Tab 0 Active Active Problems Problem Noted Date Diagnosed Date Essential hypertension DM (diabetes mellitus) ([facility]) Overview (05/07/2016): Followed by [facility] Anxiety state Immunizations Name Administration Dates Next Due PPD 10/27/2017 Family History Medical History Relation Name Comments Heart Problems Father Diabetes Mother Hypertension Mother Relation Name Status Comments Father Mother Social History Tobacco Use Types Packs/Day Years Used Date Smoking Tobacco: Never Smokeless Tobacco: Never Alcohol Use Standard Drinks/Week Comments No 0 (1 standard drink = 0.6 oz pur e alcohol) Social Connections Answer Date Recorded Social Connections and Isolation 0 06/27/2019 Financial Resource Strain Answer Date R ecorded Financial Resource Strain 0 2018 Stress Answer Date Recorded Stress 0 06/27/2019 Physical Activity Answer Date Recorded Physical Activity 0 06/27/2019 Food Insecurity Answer Date Recorded Food 0 06/27/2019 Transportation Needs Answer Date Record ed Transportation 0 06/27/2019 Housing Stability Answer Date Recorded Housing 0 06/27/2019 Safety and Environment Answer Date Dontae rded Safety 0 06/27/2019 Utilities Answer Date Recorded Utilities 0 06/27/2019 Employment Answer Date Recorded Employment 0 06/27/2019 Comments No Sex and Gender Information Value Date Recorded Sex Assigned at Female 10/27/2017 6:06 AM PST Legal Sex Female 8:01 AM PDT Gender Identity Female 10/27/2017 6:06 AM PST Sexual Orientation Straight 10/27/2017 6: 06 AM PST Last Filed Vital Signs Vital Sign Reading Time Taken Comments Blood Pressure 140/100 10/27/2017 8:59 AM EST Pulse 80 10/27/2017 8:59 AM EST Temperature 37 ??C (98.6 ??F) 10/27/2017 8:59 AM EST Respiratory Rate 20 10/27/2017 8:59 AM EST Oxygen Saturation - - Inhaled Oxygen Concentration - - Weight 101.1 kg (222 lb 12.8 oz) 10/27/2017 8:59 AM EST Height 154.9 cm (5' 1 ) 10/27/2017 8:59 AM EST Body Mass Index 42.1 10/27/2017 8:59 AM EST Plan of Treatment Health Maintenance Due Date Last Done Comments Diabetes Foot Exam 1980 Diabetes Microalbumin (w/Creatinine) 1980 HPV Screening 1980 Pap + HPV 1980 Tobacco Screening 1980 Imm-Pneumococcal (1 of 2 - PCV) 1986 HIV Screening 1995 Imm-DTaP/Tdap/Td (1 - Tdap) 1999 Imm-Hepatitis B (1 of 3 - 19 + 3-dose series) 1999 Diabetes HbA1c 04/27/2018 10/27/2017 Annual Preventive Care Visit 10/27/2018 10/27/2017 Relationship Safety Screening/Counseling 10/27/2018 10/27/2017 Lipid Screening 12/25/2018 12/25/2017 Serum Creatinine 12/25/2018 12/25/2017 Retinopathy Screening 02/02/2019 02/02/2018, 016 Cervical Cancer Screening 02/28/2019 Pap Smear 02/28/2019 02/29/2016 (Angeles evangelista by Outside Provider) Breast Cancer Screening (Mammogram) 2020 [id number] ( season) 2024 Imm-Influenza (#1) 2024 Alcohol and Drug Screen 11/09/2024 10/27/20 17, 05/07/2016, 05/07/2016 Depression Annual Screen 11/09/2024 10/27/2017, 04/10 Hepatitis C Screening Completed 12/25/2017 Cervical Ablation/Cold-Knife Conization Discontinued Cervical Cryotherapy Discontinued Colposcopy Discontinued Endometrial Biopsy Discontinued Excision/Leep Discontinued HPV Genotyping Discontinued Vaginal Pap Discontinued Vulvoscopy Discontinued Procedures Procedure Name Priority Date/Time Associated Diagnosis Comments COMPREHENSIVE METABOLIC PANEL Routine 12/25/2017 9:30 AM EST Essential hypertension HEPATITIS A,B,C PANEL Routine 12/25/2017 9:30 AM EST Immunization counseling LIPID PANEL Routine 12/25/2017 9:30 AM EST Essential hypertension HGA1C POCT Routine 10/27/2017 10:04 AM EST Type 2 diabetes mellitus without complication, without long-term current use of insulin (HCC) from Last 3 Months or Most Recently Relevant to Health Maintenance Results * (ABNORMAL) HEPATITIS A,B,C PANEL (12/25/2017 9:30 AM EST) HEPATITIS B SURFACE ANTIBODY POSITIVE(A) NEGATIVE [facility] HEPATITIS B SURFACE ANTIGEN NEGATIVE NEGATIVE [facility] Comment: Over the counter supplements containing high doses of biotin may interfere with this assay. ??If interference is suspected, patients shoud be retested after refraining from biotin supplements for 72 hours. HEPATITIS C VIRUS DIAGNOSTIC NEGATIVE NEGATIVE [facility] HEPATITIS A ANTIBODY TOTAL NEGATIVE NEGATIVE [facility] Comment: Over the counter supplements containing high doses of biotin may interfere with this assay. ??If interference is suspected, patients shoud be retested after refraining from biotin supplements for 72 hours. HEPATITIS B CORE ANTIBODY NEGATIVE NEGATIVE [facility] Blood specimen (specimen) Blood / Unknown 12/25/2017 9:30 AM EST 12/25/2017 2:10 PM EST [facility] - 12/25/2017 3:00 PM EST [facility] [address] [place] [address] PT ID [id number] ORD# [id number] [facility] - BLOOD DRAW Edited Result - Final [address] [id number], * (ABNORMAL) LIPID PANEL (12/25/2017 9:30 AM EST) CHOLESTEROL 179 0 - 200 mg/dL [facility] TRIGLYCERIDES 140 0 - 150 mg/dL [facility] HDL CHOLESTEROL 44 >40 mg/dL [facility] LDL CALCULATED 107(H) 0 - 100 mg/dL [facility] TC-HDLC RATIO 4.1 0 - 4.4 mg/dL [facility] Blood specimen (specimen) Blood / Unknown 12/25/2017 9:30 AM EST 12/25/2017 2:10 PM EST [facility] - 12/25/2017 2:38 PM EST [facility] [address] [place] [id number] PT ID [id number] ORD# [id number] [facility] - BLOOD DRAW Edited Result - Final [facility] [address] [place] [address], * (ABNORMAL) COMPRE METAB PANEL (12/25/2017 9:30 AM EST) GLUCOSE 160(H) 70 - 100 mg/dL [facility] Comment:Reference range appl icable to fasting specimens only BUN 11 5 - 25 mg/dL [facility] CREAT 0.86 0.5 - 1.1 mg/dL [facility] GLOMERULAR FILTRATION RATE > 60 [facility] Comment: If patient is -Kosovan, multiply result by 1.21 Chronic Kidney Disease: < 60 ml/min/1.73 square meters Kidney Failure: < 15 ml/min/1.73 square meters SODIUM 136 133 - 145 mmol/L [facility] POTASSIUM 4.4 3.5 - 5.5 mmol/L [facility] CHLORIDE 102 96 - 110 mmol/L [facility] CO2 26 21 - 32 mmol/L [facility] ANION GAP 8 3 - 11 [facility] CALCIUM 9.3 8.5 - 10.5 mg/dL [facility] TOTAL PROTEIN 7.3 6.0 - 8.0 G/dL [facility] ALBUMIN 3.7 3.2 - 5.0 G/dL [facility] BILI, TOTAL 0.4 0.0 - 1.4 mg/dL [facility] SGOT 16 10 - 42 U/L [facility] SGPT 22 10 - 60 U/L [facility] ALK PHOS 78 42 - 121 U/L [facility] Blood specimen (specimen) Blood / Unknown 12/25/2017 9:30 AM EST 12/25/2017 2:10 PM EST Narrative [facility] - 12/25/2017 2:38 PM EST [facility] [address] [place] [address] PT ID [id number] [place]# [id number] [facility] - BLOOD DRAW Edited Result - Final [facility] [address] [place] [address], * HGA1C POCT (10/27/2017 10:04 AM EST) HGB A1C 7.3 % [facility] POCT Blood specimen (specimen) Blood / Unknown 10/27/2017 10:04 AM EST [facility] - BLOOD DRAW Final Result [facility] POCT from Last 3 Months or Most Recently Relevant to Health Maintenance Insurance [employer] Care Teams Parks Recreation Director Relationship Specialty Start Date End Date Mike Caicedo PA [address] [place] [address] PCP - General Internal Medicine 11/07/16
--- OUTSIDE RECORDS SUMMARY | 2024-12-09 15:43 | XMS_ITS | Clinical Summary ---
Author Organization [facility] Address [address] [place] [address] Phone Care Team Providers Care Supervisor Roving Name Role Phone Nohemi Patterson MD Primary Care Provider [phone] Allergies Active Allergy Reactions Criticality Noted Date Comments Codenic Hives 10/15/2024 Medications Medication Sig Dispensed Refills Start Date End Date Status canagliflozin (INVOKANA) 100 mg tablet Take by mouth. Active cholecalciferol (VITAMIN D-3) 50 mcg (2,000 unit) capsule Take 1 Capsule by mouth daily. 06/18/2023 Active lisinopril (PRINIVIL,ZESTRIL) 40 mg tablet Take 40 mg by mouth daily. Active metFORMIN (GLUCOPHAGE) 1,000 mg tablet 1 tab po BID 01/24/2017 Active Active Problems Problem Noted Date Diagnosed Date Anxiety 02/06/2015 Diabetes mellitus without complication 5 Overview (11/08/2024): Diet controlled Hypertension 02/06/2015 Encounters Date Type Department Care Team Description 10/15/2024 4:29 PM EST - 10/15/2024 5:30 PM EST Emergency [facility] Emergency [address] [place] [address] Discharge Disposition: Home or Self Care from Last 3 Months Surgical History Surgery Date Site/Laterality Comments SECTION PROCEDURE: HISTORICAL DELIVERY TONSILLECTOMY PROCEDURE: HISTORICAL TONSILLECTOMY; COMMENT: age 4 EYE SURGERY PROCEDURE: HISTORICAL EYE SURGERY APPENDECTOMY 2009 PROCEDURE: HISTORICAL APPENDECTOMY HERNIA REPAIR PROCEDURE: HISTORICAL HERNIA REPAIR/UMB Medical History Medical History Date Comments Diabetes mellitus type 2 in obese DX:Diabetes mellitus type 2 in obese HTN (hypertension) DX:HTN (hyper tension) Social History Tobacco Use Types Packs/Day Years Used Date Smoking Tobacco: Never Smokeless Tobacco: Never Alcohol Use Standard Drinks/Week Comments No 0 (1 standard drink = 0.6 oz pur e alcohol) Sex and Gender Information Value Date Recorded Sex Assigned at Not on file Gender Identity Not on file Sexual Orientation Not on file Job Start Date Occupation Industry Not on file Not on file Not on file Obstetrics History Last Filed Vital Signs Vital Sign Reading Time Taken Comments Blood Pressure 135/72 10/15/2024 4:42 PM EST Pulse 92 10/15/2024 4:42 PM EST Temperature 36.5 ??C (97.7 ??F) 10/15/2024 4:42 PM ES T Respiratory Rate 20 10/15/2024 4:42 PM EST Oxygen Saturation 98% 10/15/2024 4:42 PM EST Inhaled Oxygen Concentration - - Weight 95.3 kg (210 lb) 10/15/2024 4:42 PM EST Height 160 cm (5' 3 ) 10/15/2024 4:42 PM EST Body Mass Index 37.2 10/15/2024 4:42 PM EST Plan of Treatment Health Maintenance Due Date Last Done Comments Breast Cancer Screening 1980 Pneumococcal Vaccine: Pediatrics (0 to 5 Years) and At-Risk Patients (6 to 64 Years) (1 of 2 - PCV) 1986 Diabetes: Annual Foot Exam 1990 Diabetes: Annual Retina Eye Exam 1990 DTaP,Tdap,and Td Vaccines (1 - Tdap) 1999 Depression Screening 10/12/2022 HIV Screening 10/12/2022 Hepatitis C Screening 10/12/2022 Social Influencers of Health Screening 10/12/2022 Diabetes: Annual Urine Albumin-Creatinine Ratio (uACR) 10/22/2022 Diabetes: Blood Sugar Contro l Test (HGBA1C) 10/22/2022 Cholesterol Screening (Lipid Panel) 12/25/2022 12/25/2017 Diabetes: Annual GFR (Glomerular Filtration Rate) 06/18/2024 06/18/2023 Hypertension/CHF/CAD Annual BMP Blood Test 06/18/2024 06/18/2023 COVID-19 Vaccine (3 - 2023-2 5 season) 2024 05/11/2021, 04/20/2021 Influenza Vaccine (#1) 2024 , 12/03/2017, 10/24/2013 Cervical Cancer Screening: HPV 05/24/2026 05/24/2021 Hepatitis B Vaccines Completed 07/04/1996, 12/21/1995, 11/12/1995 HIB Vaccines Aged Out No longer eligi ble based on patient's age to complete this topic HPV Vaccines Aged Out No longer eligi ble based on patient's age to complete this topic Hepatitis A Vaccines Aged Out No long er eligible based on patient's age to complete this topic IPV Vaccines Aged Out No longer eligi ble based on patient's age to complete this topic MMR Vaccines Aged Out No longer eligi ble based on patient's age to complete this topic Meningococcal ACWY Vaccine Aged Out N o longer eligible based on patient's age to complete this topic RSV Immunization Patients Under 20 months Aged Out No longer eligible b ased on patient's age to complete this topic Varicella Vaccines Aged Out No longer eligible based on patient's age to complete this topic Procedures Procedure Name Priority Date/Time Associated Diagnosis Comments ANNUAL BMP BLOOD TEST Routine 06/18/2023 HPV Routine 05/24/2021 from Last 3 Months or Most Recently Relevant to Health Maintenance Results * Annual BMP Blood Test (06/18/2023) Pathologist [facility] Annual BMP Blood Test abstracted Historical Provider MD JEREMY Wilkins * Cervical Cancer Screening: HPV (05/24/2021) Pathologist [facility] Cervical Cancer Screening: HPV normal, abstracted Historical Provider MD JEREMY Wilkins from Last 3 Months or Most Recently Relevant to Health Maintenance Care Teams Supervisor Roving Relationship Specialty Start Date End Date Nohemi Patterson MD PCP - General 06/16/23
[2024-12-09 15:44] VITALS: BP 142/84; PULSE 105; BMI 37.3
--- NOTE | 2024-12-09 15:44 | A.OFFVIS_ITS ---
Vital Signs 12/09/24 15:44 12/09/24 16:27 Height 5 ft 3 in Weight 210 lb 5.136 oz BMI 37.3 BP 142/84 H 138/82 Blood Pressure Location Rt brachial Position Sitting Pulse 105 H Pulse Source Pulse Oximeter Intake Visit Reasons: Type II diabetes Intake Note: Patient present today to follow up on Type 2 Diabetes Mellitus. Last Diabetic Eye exam: Aug 2024 Last Podiatry Visit: Does not see a Certified Scrum Master Random Glucose: 316 mg/dl HgA1C: 9.2% 10/28/24 Back Maker Required: No Accompanied by: Self / Same As Patient Allergies codeine [CODEINE] Allergy (Severe, Verified 12/09/24 15:44) SWELLING doxycycline [DOXYCYCLINE] Allergy (Severe, Verified 12/09/24 15:44) SWELLING Seasonal Allergies Allergy (Intermediate, Verified 12/09/24 15:44) Runny Nose HPI Comments Details: This is a 44-year-old female with a past medical history of anxiety, GERD, obesity, type 2 diabetes, hypertensive retinopathy and asthma presenting for diabetes management. The patient was diagnosed with diabetes 14 years ago. She has a family history of Type II diabetes (brother and mother) and Type I DM (maternal aunt). Hemoglobin a1c 10.1% 08/05/2024. Hemoglobin a1c 9.2% 10/28/24. Patient forgot her glucometer, but before she ran out of [employer] she says all of the readings were under 200. Current medication regimen: Actos 15 mg daily, metformin 500 mg extended release 2 capsules twice daily and Mounjaro 5 mg weekly She ran out of [employer] 1.5 weeks ago. Past medications: Janumet not covered by insurance, and there was an issue getting prior authorization completed. Four years ago she was on Trulicity. Patient tried Ozempic which cause acid reflux and nausea and so she did not continue. Compliance issues: none Hypoglycemia symptoms: none Hyperglycemia symptoms: None Eye exam: [facility], up-to-date. Microvascular complications: Mild neuropathy in feet Macrovascular complications: none Patient had liver elastography done on 08/22/2024 which showed hepatic steatosis. Her blood pressure and heart rate were initially elevated but improved. She is selling her house, and there was a very stressful situation with her realtor. She heard back from the insurance defense attorney during this visit, and she felt much better. ROS: Constitutional: No unexplained weight loss, fever, chills, fatigue or night sweats. Eyes: No vision changes, blurry vision, double vision, eye pain Respiratory: No shortness of breath, cough or sputum production. Cardiovascular: No chest pain or pedal edema. Neurologic: No headache, dizziness, syncope Skin: No rash or wounds Physical exam: Constitutional: Alert, in no distress. Respiratory: Clear to auscultation. Cardiovascular: S1 S2 regular. No murmurs. [facility] Medical History (Updated 11/10/24 @ 21:31 by Ashwin El MD) Hepatic steatosis Uncontrolled type 2 diabetes mellitus with hyperglycemia Mixed hypercholesterolemia and hypertriglyceridemia BMI 37.0-37.9, adult Obesity DARIN (obstructive sleep apnea) GERD (gastroesophageal reflux disease) Diabetes mellitus Asthma Anxiety HTN (hypertension) Umbilical hernia Surgical History H/O umbilical hernia repair History of surgery Hx of bilateral breast reduction surgery History of esophagogastroduodenoscopy (EGD) H/O section History of appendectomy H/O eye surgery History of tonsillectomy Family History Mother HTN (hypertension) Diabetes Father Heart disease Social History Household Members: Spouse and Children Housing: House Alcohol intake: current Alcohol intake frequency: other Patient Tobacco Use Status: Never used Tobacco e-Cigarette/Vaping Use: Never Used Second Hand Smoke Exposure: No service: No Current occupational status: employed 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 Current occupational exposures/hazards: No Cognitive needs: No Hearing needs: No Vision needs: No Physical Exam Vital Signs: Last Vital Signs Pulse 105 H 12/09/24 15:44 BP 142/84 H 12/09/24 15:44 BMI result Body Mass Index 37.3 Results Reviewed Results Reviewed: Laboratory Tests 01/06/24 08/04/24 08/05/24 11:31 10:05 11:04 Creatinine 1.04 Estimated GFR 58 Hgb A1c (Clinic) 7.9 H Hemoglobin A1c % 10.1 H Triglycerides 152 H Cholesterol 229 H LDL Cholesterol, Calc 154 H HDL Cholesterol 45 TSH 1.23 Urine Creatinine 167.11 Urine Microalbumin 19.0 Microalb/Creat Ratio 11.3 Assessment & Plan Assessment & Plan (1) Uncontrolled type 2 diabetes mellitus with hyperglycemia: Code(s): E11.65 - Type 2 diabetes mellitus with hyperglycemia Category: Medical Plan In summary this is a 44-year-old female with uncontrolled type 2 diabetes. Continue metformin extended release 500 mg 2 tablets twice daily. Continue Actos 15 mg daily for now. Increase Mounjaro to 7.5 mg once weekly. Side effects reviewed. She was followed by the bariatric surgery program, but she has decided not to proceed with surgery. Discussed pathophysiology of Type II Diabetes Mellitus with the patient in detail.? I explained the half-way risks and complications associated with uncontrolled diabetes including nephropathy, neuropathy, peripheral vascular disease, retinopathy, increased risk of heart disease and stroke.? Discussed lifestyle modification with the patient. Recommended 30 minutes of moderately vigorous exercise 5 days per week to promote weight loss. She declines referral to dietitian/prosthodontist/educator. Reviewed proper treatment of hypo and hyperglycemia. Follow up in 4 weeks for type 2 diabetes. Medications: New tirzepatide (Mounjaro) 7.5 mg (0.5 mL) subcut QWEEK 2 mL 2RF pioglitazone 15 mg PO DAILY 90 tabs 1RF Discontinued tirzepatide (Mounjaro) for 4 weeks Discontinued Reason: Doctor's Order 2.5 mg (0.5 mL) subcut QWEEK 2 mL 0RF tirzepatide (Mounjaro) Discontinued Reason: Doctor's Order 5 mg (0.5 mL) subcut QWEEK 2 mL 1RF Coding Level of Care Code Tele Est Pt Level 4 (35737) Complex EM visit Add On G2211 Diagnoses Uncontrolled type 2 diabetes mellitus with hyperglycemia E11.65
[2024-12-09 16:05] LABS: Glucose, Whole Blood 316 mg/dL (60-115)
[2024-12-09 16:27] VITALS: BP 138/82
== END 2024-12-09 16:24 | disposition home or self-care (01) ==
LOC: HO.ENCR 15:42
PROVIDERS: PCP Nurse Practitioner Family; Visit Provider Physician Assistant Medical
DX: E11.65 Type 2 diabetes mellitus with hyperglycemia (principal)

== ENCOUNTER → 2024-12-09 15:42 | Outpatient (BNVA) | payer OTHER, SELFPAY | PROVIDERS: PCP Nurse Practitioner Family; Visit Provider Physician Assistant Medical | DX: E11.65 Type 2 diabetes mellitus with hyperglycemia (principal); Z79.84 Long term (current) use of oral hypoglycemic drugs | CPT/HCPCS: 82947; 99212 ==

== ENCOUNTER 2025-03-10 15:17 | Outpatient (AMB) | payer OTHER, SELFPAY ==
--- NOTE | 2025-03-10 15:20 | A.OFFVIS_ITS ---
Vital Signs 03/10/25 15:25 03/10/25 15:47 Height 5 ft 3 in Weight 202 lb 2.622 oz BMI 35.8 BP 152/98 H 144/88 H Blood Pressure Location Rt brachial Position Sitting Pulse 97 Pulse Source Pulse Oximeter Pulse Oximetry (%) 96 Oxygen Delivery Method Room Air Intake Visit Reasons: Diabetes Type 2 Intake Note: Patient present today to follow up on Type 2 Diabetes Mellitus. Last Diabetic Eye exam: Aug 2024 Last Podiatry Visit: Does not see a Improvement Auditor Random Glucose: 181 mg/dl HgA1C: 9.1% 03/10/2025 Elastic Tape Inserter Required: No Accompanied by: Self / Same As Patient Allergies codeine [CODEINE] Allergy (Severe, Verified 03/10/25 15:25) SWELLING doxycycline [DOXYCYCLINE] Allergy (Severe, Verified 03/10/25 15:25) SWELLING Seasonal Allergies Allergy (Intermediate, Verified 03/10/25 15:25) Runny Nose Medication List - Last Reconciled 03/10/25 by WADE Sandoval alprazolam 0.5 mg PO ONCE PRN 1 day amoxicillin 500 mg PO Q8H blood sugar diagnostic (FreeStyle Lite Strips) As directed to check glucose 3 times daily blood-glucose meter (FreeStyle Lite Meter kit) as directed to monitor blood glucose blood-glucose sensor (FreeStyle Patrick 3 Sensor device) apply new sensor every 14 days blood-glucose,brusher operator,cont (FreeStyle Patrick 3 Antoine) Use daily to monitor blood glucose levels continuously. cholecalciferol (vitamin D3) (Vitamin D3) 25 mcg PO DAILY clarithromycin 500 mg PO Q12H glucose (Dex4 Glucose Quick Dissolve) 16 grams (4 x 4 gram) PO Q15M PRN hydrocortisone 2.5% (Anusol-HC) 1 appl IN BEDTIME PRN hydrocortisone-pramoxine 1-1 % (Proctofoam HC) 1 appl IN BEDTIME lancets (FreeStyle Lancets) Use to monitor blood glucose 3 times daily. lisinopril-hydrochlorothiazide 20-12.5 mg 1 tab PO DAILY 1 month metformin ER 500 mg PO DAILY 90 days NS omeprazole 40 mg PO DAILY tirzepatide (Mounjaro) 7.5 mg (0.5 mL) subcut QWEEK HPI Comments Details: This is a 44-year-old female with a past medical history of anxiety, GERD, obesity, type 2 diabetes, hypertensive retinopathy and asthma presenting for diabetes management. The patient was diagnosed with diabetes 14 years ago. She has a family history of Type II diabetes (brother and mother) and Type I DM (maternal aunt). Her hemoglobin A1c is 9.1% today. Patient forgot her glucometer. She has not been checking her blood sugars. Current medication regimen: Actos 15 mg, metformin 500 mg extended release 2 capsules twice daily and Mounjaro 7.5 mg weekly Compliance issues: She stopped Actos and metformin entirely. She ran out of Mounjaro and then restarted it 1 month ago. She attributes all of this to being back and forth between here and her new home she purchased in [place]. There was a lot going on during the sale of her own home, too. Past medications: Janumet not covered by insurance, and there was an issue getting prior authorization completed. Four years ago she was on Trulicity. Patient tried Ozempic which cause acid reflux and nausea and so she did not continue. Compliance issues: none Hypoglycemia symptoms: none Hyperglycemia symptoms: None Eye exam: [facility], up-to-date. Microvascular complications: Mild neuropathy in feet Macrovascular complications: none Patient had liver elastography done on 08/22/2024 which showed hepatic steatosis. She has hypertension, and she ran out of her blood pressure pill, and she says there was a delay getting it from the primary care office. She picked it up, and she is going to restart it. Her blood pressure is elevated today. ROS: Constitutional: No unexplained weight loss, fever, chills, fatigue or night sweats. Eyes: No vision changes, blurry vision, double vision, eye pain Respiratory: No shortness of breath, cough or sputum production. Cardiovascular: No chest pain or pedal edema. Neurologic: No headache, dizziness, syncope Skin: No rash or wounds Physical exam: Constitutional: Alert, in no distress. Respiratory: Clear to auscultation. Cardiovascular: S1 S2 regular. No murmurs. [facility] Medical History (Updated 11/10/24 @ 21:31 by Ashwin El MD) Hepatic steatosis Uncontrolled type 2 diabetes mellitus with hyperglycemia Mixed hypercholesterolemia and hypertriglyceridemia BMI 37.0-37.9, adult Obesity DARIN (obstructive sleep apnea) GERD (gastroesophageal reflux disease) Diabetes mellitus Asthma Anxiety HTN (hypertension) Umbilical hernia Surgical History H/O umbilical hernia repair History of surgery Hx of bilateral breast reduction surgery History of esophagogastroduodenoscopy (EGD) H/O section History of appendectomy H/O eye surgery History of tonsillectomy Family History Mother HTN (hypertension) Diabetes Father Heart disease Social History Household Members: Spouse and Children Housing: House Alcohol intake: current Alcohol intake frequency: other Patient Tobacco Use Status: Never used Tobacco e-Cigarette/Vaping Use: Never Used Second Hand Smoke Exposure: No service: No Current occupational status: employed 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 Current occupational exposures/hazards: No Cognitive needs: No Hearing needs: No Vision needs: No Physical Exam Vital Signs: Last Vital Signs Pulse 97 03/10/25 15:25 BP 144/88 H 03/10/25 15:47 Pulse Ox 96 03/10/25 15:25 Oxygen Delivery Method Room Air 03/10/25 15:25 BMI result Body Mass Index 35.8 Results AMB Hemoglobin A1c AMB Hemoglobin A1c 9.1 % Last Edit by SHAZIA De Leon on 03/10/25 15:44 Results Reviewed Results Reviewed: Laboratory Last Values Glucose (Clinic) 181 mg/dL (60-115) H 03/10/25 15:31 Hgb A1c (Clinic) 9.1 % (4.0-6.0) H 03/10/25 15:43 Laboratory Tests 01/06/24 08/04/24 08/05/24 11:31 10:05 11:04 Creatinine 1.04 Estimated GFR 58 Hgb A1c (Clinic) 7.9 H Hemoglobin A1c % 10.1 H Triglycerides 152 H Cholesterol 229 H LDL Cholesterol, Calc 154 H HDL Cholesterol 45 TSH 1.23 Urine Creatinine 167.11 Urine Microalbumin 19.0 Microalb/Creat Ratio 11.3 Assessment & Plan Assessment & Plan (1) Uncontrolled type 2 diabetes mellitus with hyperglycemia: Code(s): E11.65 - Type 2 diabetes mellitus with hyperglycemia Category: Medical Plan In summary this is a 44-year-old female with uncontrolled type 2 diabetes. Restart metformin extended release 500 mg daily. If fasting sugars are over 140 or postprandial sugars are over 180 after 1 week increase to 500 mg twice a day. She declined increase in Mounjaro. Continue Mounjaro 7.5 mg weekly. Reminded to bring glucometer to all appointments, and she needs improved compliance with glucose monitoring. She was followed by the bariatric surgery program, but she has decided not to proceed with surgery. Discussed pathophysiology of Type II Diabetes Mellitus with the patient in detail.? I explained the technician terminal and repeater risks and complications associated with uncontrolled diabetes including nephropathy, neuropathy, peripheral vascular disease, retinopathy, increased risk of heart disease and stroke.? Discussed lifestyle modification with the patient. Recommended 30 minutes of moderately vigorous exercise 5 days per week to promote weight loss. She declines referral to dietitian/clinical staff educator. Reviewed proper treatment of hypo and hyperglycemia. Restart lisinopril-hydrochlorothiazide 1 pill daily. Return for fasting labs. Follow up in 6 weeks for type 2 diabetes. Orders: Orders Alanine Aminotransferase Today E11.8 - Type 2 diabetes mellitus with unspecified complications, R79.89 - Other specified abnormal findings of blood chemistry Vitamin B12 Today E11.8 - Type 2 diabetes mellitus with unspecified complications, Z91.89 - Other specified personal risk factors, not elsewhere classified AMB Hemoglobin A1c Today E11.8 - Type 2 diabetes mellitus with unspecified complications Lipid Panel Today E11.8 - Type 2 diabetes mellitus with unspecified complicatio ns, E78.5 - Hyperlipidemia, unspecified Aspartate Amino Transferase Today E11.8 - Type 2 diabetes mellitus with unspecified complications Creatinine Today E11.8 - Type 2 diabetes mellitus with unspecified complications, E11.9 - Type 2 diabetes mellitus without complications Medications: Changed From metformin ER 1,000 mg (2 x 500 mg) PO BID 90 days 360 tabs 3RF NS To metformin ER 500 mg PO DAILY 90 days 90 tabs 1RF NS Refilled tirzepatide (Mounjaro) 7.5 mg (0.5 mL) subcut QWEEK 2 mL 3RF Coding Level of Care Code Est Pt Level 4 (30372) Complex EM visit Add On G2211 Diagnoses Uncontrolled type 2 diabetes mellitus with hyperglycemia E11.65
--- OUTSIDE RECORDS SUMMARY | 2025-03-10 15:20 | XMS_ITS | Clinical Summary ---
Author Organization [facility] Address [address] [place] [address] Care Team Providers Care Electrician Control Equipment Name Role Phone Mike Caicedo Primary Care Provider [phone] Source Comments PLEASE NOTE, if this patient [...] complication, without long-term current use of insulin ([facility]) Take 1 Tab by mouth 2 (two) times daily with a meal 60 Tab 11 7 Active FREESTYLE INSULINX TEST STRIPS strips TEST 2 TIMES A DAY 100 Each 5 7 Active FREESTYLE LANCETS 28 gauge TEST 2 TIMES A DAY 100 Each 11 7 Active vit B-ydjytxne-pzalci icone (CETAPHIL) lotionIndications :Flexural eczema Apply topically as needed for other reason (eczema) 473 mL 3 7 Active lisinopriL-hydroc hlorothiazide 20-12.5 mg per tabletIndications :Essential hypertension TAKE 1 TABLET BY MOUTH EVERY DAY 14 Tab 0 Active Active Problems Problem Noted Date Diagnosed Date Essential hypertension DM (diabetes mellitus) ([facility]) Overview (05/07/2016): Followed by [facility] Endocrinology Anxiety state Immunizations Immunization Administration Dates Next Due PPD 10/27/2017 Family [...] Health Maintenance Due Date Last Done Comments Anxiety Screening 1980 Diabetes Foot Exam 1980 HPV Screening 1980 Pap + HPV 1980 Tobacco Screening 1980 Urine Albumin Creatinine Rat io Screening 1980 HIV Screening 1995 Imm-DTaP/Tdap/Td (1 - Tdap) 1999 Imm-Hepatitis B (1 of 3 - 19 + 3-dose series) 1999 Imm-Pneumococcal (1 of 2 - PCV) 1999 Diabetes HbA1c 04/27/2018 10/27/2017 Annual Preventive Care Visit 10/27/2018 10/27/2017 Relationship Safety Screening/Counseling 10/27/2018 10/27/2017 Lipid Screening 12/25/2018 12/25/2017 Serum Creatinine 12/25/2018 12/25/2017 Retinopathy Screening 02/02/2019 02/02/2018, 016 Cervical Cancer Screening 02/28/2019 Pap Smear 02/28/2019 02/29/2016 (Angeles evangelista by Outside Provider) Breast Cancer Screening (Mammogram) 2020 [id number] ( season) 2024 Imm-Influenza (#1) 2024 Alcohol [...] EST) HEPATITIS B SURFACE ANTIBODY POSITIVE(A) NEGATIVE [facility] HEPATITIS B SURFACE ANTIGEN NEGATIVE NEGATIVE [facility] Comment: Over the counter supplements containing high doses of biotin may interfere with this assay. ??If interference is suspected, patients shoud be retested after refraining from biotin supplements for 72 hours. HEPATITIS C VIRUS DIAGNOSTIC NEGATIVE NEGATIVE [facility] HEPATITIS A ANTIBODY TOTAL NEGATIVE NEGATIVE [facility] Comment: Over the counter supplements containing high doses of biotin may interfere with this assay. ??If interference is suspected, patients shoud be retested after refraining from biotin supplements for 72 hours. HEPATITIS B CORE ANTIBODY NEGATIVE NEGATIVE [facility] Blood specimen (specimen) Blood / Unknown 12/25/2017 9:30 AM EST 12/25/2017 2:10 PM EST [facility] - 12/25/2017 3:00 PM EST [employer] [address] [place] [address] PT ID [id number] ORD# [id number] [facility] - BLOOD DRAW Edited Result - Final [address] [address], * (ABNORMAL) LIPID PANEL (12/25/2017 9:30 AM EST) CHOLESTEROL 179 0 - 200 mg/dL [facility] TRIGLYCERIDES 140 0 - 150 mg/dL [facility] HDL CHOLESTEROL 44 >40 mg/dL [facility] LDL CALCULATED 107(H) 0 - 100 mg/dL [facility] TC-HDLC RATIO 4.1 0 - 4.4 mg/dL [facility] Blood specimen (specimen) Blood / Unknown 12/25/2017 9:30 AM EST 12/25/2017 2:10 PM EST [facility] - 12/25/2017 2:38 PM EST [facility] [address] [place] [address] PT ID [id number] ORD# [id number] [facility] - BLOOD DRAW Edited Result - Final [facility] [address] [place] [address], * (ABNORMAL) COMPRE METAB PANEL (12/25/2017 9:30 AM EST) GLUCOSE 160(H) 70 - 100 mg/dL [facility] Comment:Reference range appl icable to fasting specimens only BUN 11 5 - 25 mg/dL [facility] CREAT 0.86 0.5 - 1.1 mg/dL [facility] GLOMERULAR FILTRATION RATE > 60 [facility] Comment: If patient is -Chinese, multiply result by 1.21 Chronic Kidney Disease: < 60 ml/min/1.73 square meters Kidney Failure: < 15 ml/min/1.73 square meters SODIUM 136 133 - 145 mmol/L [facility] POTASSIUM 4.4 3.5 - 5.5 mmol/L [facility] CHLORIDE 102 96 - 110 mmol/L [facility] CO2 26 21 - 32 mmol/L [facility] ANION GAP 8 3 - 11 [facility] CALCIUM 9.3 8.5 - 10.5 mg/dL [facility] TOTAL PROTEIN 7.3 6.0 - 8.0 G/dL [facility] ALBUMIN 3.7 3.2 - 5.0 G/dL [facility] BILI, TOTAL 0.4 0.0 - 1.4 mg/dL [facility] SGOT 16 10 - 42 U/L [facility] SGPT 22 10 - 60 U/L [facility] ALK PHOS 78 42 - 121 U/L [facility] Blood specimen (specimen) Blood / Unknown 12/25/2017 9:30 AM EST 12/25/2017 2:10 PM EST Narrative [facility] - 12/25/2017 2:38 PM EST [facility] [address] [place] [address] PT ID [id number] ORD# [id number] [facility] - BLOOD DRAW Edited Result - Final [facility] [address] [place] [address], * HGA1C POCT (10/27/2017 10:04 AM EST) HGB A1C 7.3 % [facility] PO[facility] Blood specimen (specimen) Blood / Unknown 10/27/2017 10:04 AM EST [facility] - BLOOD DRAW Final Result [facility] PO[facility] from Last 3 Months or Most Recently Relevant to Health Maintenance Insurance [employer] Care Teams Electrician Control Equipment Relationship Specialty Start Date End Date Mike Caicedo PA [address] [place] [id number] PCP - General Internal Medicine 11/07/16
--- OUTSIDE RECORDS SUMMARY | 2025-03-10 15:20 | XMS_ITS | Clinical Summary ---
Author Organization [facility] Address [address] [place] [address] Phone Care Team Providers Care Grinder Lap Name Role Phone Nohemi Patterson MD Primary Care Provider [phone] Allergies Active Allergy Reactions Criticality Noted Date Comments Cristine Ruby 10/15/2024 Medications canagliflozin (INVOKANA) 100 mg tablet Take by mouth. Active cholecalciferol (VITAMIN D-3) 50 mcg (2,000 unit) capsule Take 1 Capsule by mouth daily. 06/18/2023 Active lisinopril (PRINIVIL,ZESTR IL) 40 mg tablet Take 40 mg by mouth daily. Active metFORMIN (GLUCOPHAGE) 1,000 mg tablet 1 tab po BID 01/24/2017 Active Active Problems Problem Noted Date Diagnosed Date Anxiety 02/06/2015 Diabetes mellitus without co mplication (CMS/[facility] V24, CMS/[facility] V28) 02/06/2015 Overview (11/08/2024): Diet controlled Hypertension 02/06/2015 Surgical History Surgery Date Site/Laterality Comments SECTION [...] drink = 0.6 oz pur e alcohol) Comments Unknown Sex and Gender Information Value Date Recorded Sex Assigned at Not on file Legal Sex Female 2:24 AM EST Gender Identity Not on file Sexual Orientation Not on file Obstetrics History Last Filed [...] Last Done Comments Breast Cancer Screening 1980 Diabetes: Annual Foot Exam 1990 Diabetes: Annual Retina Eye Exam 1990 DTaP,Tdap,and Td Vaccines (1 - Tdap) 1999 Pneumococcal Vaccine: Pediatrics (0 to 5 Years) and At-Risk Patients (6 to 64 Years) (1 of 2 - PCV) 1999 Depression Screening 10/12/2022 HIV Screening 10/12/2022 [...] 5 season) 2024 05/11/2021, 04/20/2021 Influenza Vaccine (Season Ended) 2025 06/28/2020, 12/03/2017, 10/24/2013 Cervical Cancer Screening: HPV 05/24/2026 [...] patient's age to complete this topic Meningococcal B Vaccine Aged Out No l onger eligible based on patient's age to complete [...] * Annual BMP Blood Test (06/18/2023) Pathologist [facility] Annual BMP Blood Test abstracted [facility] Provider HEALTH MAINTENANCE Final Result * Cervical Cancer Screening: HPV (05/24/2021) Pathologist [facility] Cervical Cancer Screening: HPV normal, abstracted Historical Provider HEALTH MAINTENANCE Final Result from Last 3 Months or Most Recently Relevant to Health Maintenance Care Teams Grinder Lap Relationship Specialty Start Date End Date Nohemi Patterson MD PCP - General 06/16/23
[2025-03-10 15:25] VITALS: BP 152/98; PULSE 97; O2SAT 96; BMI 35.8
[2025-03-10 15:38] LABS: Glucose, Whole Blood 181 mg/dL (60-115)
[2025-03-10 15:47] VITALS: BP 144/88
== END 2025-03-10 16:01 | disposition home or self-care (01) ==
LOC: HO.ENCR 15:17
PROVIDERS: PCP Nurse Practitioner Family; Visit Provider Physician Assistant Medical
DX: E11.65 Type 2 diabetes mellitus with hyperglycemia (principal); E11.8 Type 2 diabetes mellitus with unspecified complications

== ENCOUNTER → 2025-03-10 15:17 | Outpatient (BNVA) | payer OTHER, SELFPAY | PROVIDERS: PCP Nurse Practitioner Family; Visit Provider Physician Assistant Medical | DX: E11.65 Type 2 diabetes mellitus with hyperglycemia (principal); R79.89 Other specified abnormal findings of blood chemistry; E66.9 Obesity, unspecified; E78.5 Hyperlipidemia, unspecified; Z91.89 Other specified personal risk factors, not elsewhere classified; Z68.35 Body mass index [BMI] 35.0-35.9, adult | CPT/HCPCS: 82947; 83036; 99212 ==

== ENCOUNTER 2025-04-18 14:54 | Emergency (ER) | payer OTHER, SELFPAY ==
--- NOTE | ~2025-04-18 | CT_ITS ---
EXAMINATION: CT ABDOMEN AND PELVIS WITHOUT CONTRAST CLINICAL INFORMATION: Right hip/back pain. Fall. COMPARISON: Ultrasound abdomen 08/22/2024. TECHNIQUE: Multidetector volumetric imaging was performed from the superior aspect of the liver through the pubic symphysis. Sagittal and coronal reformatted images were obtained on the technologist's workstation. This CT examination was performed using dose optimization techniques as appropriate, variously including the following: *Automated exposure control *Adjustment of mA and/or kV according to patient size (this includes techniques or standardized protocols for targeted exams where dose is matched to indication/reason for exam; i.e. extremities or head) *Use of iterative reconstruction technique FINDINGS: LUNG BASES: There is mild atelectatic changes left lung base. Heart size is normal. There is no pericardial fusion. LIVER, GALLBLADDER, AND BILIARY TREE: The liver is normal in size, shape, and attenuation. No focal hepatic lesion or biliary ductal dilatation is present. There are multiple radiopaque radiolucent gallstones without wall thickening. PANCREAS: Unremarkable. SPLEEN: Unremarkable. ADRENAL GLANDS: Unremarkable. KIDNEYS AND URETERS: The kidneys are normal in size, shape, and attenuation. No hydronephrosis, hydroureter, or calculi seen. No perinephric stranding. BLADDER: Unremarkable. GASTROINTESTINAL TRACT: There is a large amount of stool seen in colon without distention. The small bowel loops are normal caliber. Appendix is incidentally removed with sarah in place. No free air or free fluid. The stomach is nondistended. ABDOMINAL WALL: There is a small umbilical and supraumbilical midline abdominal wall hernia. There is evidence of previous umbilical mesh in place for hernia repair. There is no inguinal hernia seen. LYMPH NODES: Normal. VASCULAR: Unremarkable. PELVIC VISCERA: Uterus is anteverted with a right adnexal 4.5 cm cyst. OSSEOUS STRUCTURES: Mild degenerative disc changes L5-S1 disc level is noted. There are no lower rib fractures seen. CT/CT abdomen pelvis wo IV con IMPRESSION: No acute intra-abdominal process seen Fleischner guidelines were followed. Electronically signed by: Morgan Delgadillo MD 04/18/2025 05:02 PM EDT
[2025-04-18 15:40] VITALS: BP 148/105; PULSE 78; RESP 18; TEMP 36; O2SAT 99; BMI 37.1
--- NOTE | 2025-04-18 15:45 | ED.GENADULT ---
HPI - General Adult General Chief complaint: Fall Stated complaint: Fall yesterday - hip injury History of Present Illness HPI narrative: Left without completion of treament by ED provider Related Data Home Medications ?Medication ?Instructions ?Recorded ?Confirmed cholecalciferol (vitamin D3) 25 25 mcg PO DAILY 02/07/21 03/10/25 mcg (1,000 unit) capsule (Vitamin D3) Previous Rx's ?Medication ?Instructions ?Recorded alprazolam 0.5 mg tablet 0.5 mg PO ONCE PRN sleep 1 day #1 08/05/24 tab blood sugar diagnostic (FreeStyle #100 ea 09/13/24 Lite Strips) blood-glucose meter (FreeStyle #1 ea 09/13/24 Lite Meter kit) blood-glucose sensor (FreeStyle #2 ea 09/13/24 Patrick 3 Sensor device) blood-glucose,occupational health and safety manager,cont #1 ea 09/13/24 (FreeStyle Patrick 3 [place]) glucose 4 gram chewable tablet 16 g (4 x 4 gram) PO Q15M PRN 09/13/24 (Dex4 Glucose Quick Dissolve) hypoglycemia #10 tabs lancets 28 gauge (FreeStyle #100 ea 09/13/24 Lancets) hydrocortisone 1 %-pramoxine 1 % 1 appl MO BEDTIME #10 grams 10/20/24 rectal foam (Proctofoam HC) hydrocortisone 2.5 % topical cream 1 appl MO BEDTIME PRN hemorrhoids 10/20/24 with perineal applicator #30 grams (Anusol-HC) amoxicillin 500 mg capsule 500 mg PO Q8H #42 caps 11/10/24 clarithromycin 500 mg tablet 500 mg PO Q12H #28 tabs 11/10/24 omeprazole 40 mg capsule,delayed 40 mg PO DAILY #14 caps 11/10/24 release lisinopril 20 1 tab PO DAILY 1 month #90 tabs 03/01/25 mg-hydrochlorothiazide 12.5 mg tablet metformin 500 mg tablet,extended 500 mg PO DAILY 90 days #90 tabs 03/10/25 release 24 hr tirzepatide 7.5 mg/0.5 mL 7.5 mg (0.5 mL) subcut QWEEK #2 mL 03/10/25 subcutaneous pen injector (Gina) Allergies Allergy/AdvReac Type Severity Reaction Status Date / Time codeine [CODEINE] Allergy Severe SWELLING Verified 04/18/25 15:44 doxycycline [DOXYCYCLINE] Allergy Severe SWELLING Verified 04/18/25 15:44 Seasonal Allergies Allergy Intermediate Runny Nose Verified 04/18/25 15:44 [facility] Past Medical History Medical History (Updated 04/19/25 @ 09:09 by WADE Villanueva) Hepatic steatosis Uncontrolled type 2 diabetes mellitus with hyperglycemia Mixed hypercholesterolemia and hypertriglyceridemia BMI 37.0-37.9, adult Obesity DARIN (obstructive sleep apnea) GERD (gastroesophageal reflux disease) Diabetes mellitus Asthma Anxiety HTN (hypertension) Umbilical hernia Surgical History H/O umbilical hernia repair History of surgery Hx of bilateral breast reduction surgery History of esophagogastroduodenoscopy (EGD) H/O section History of appendectomy H/O eye surgery History of tonsillectomy Family History Family History Mother HTN (hypertension) Diabetes Father Heart disease Social History Social History Household Members: Spouse and Children Housing: House Alcohol intake: current Alcohol intake frequency: other Patient Tobacco Use Status: Never used Tobacco e-Cigarette/Vaping Use: Never Used Second Hand Smoke Exposure: No Advance Directives: No Advance Directives Information Provided: No service: No Current occupational status: employed 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 Patient states having normal xray at [facility], but when she walks she feelt cracking sensation in right hip and lower back. images ordered Discharge Plan Discharge Clinical Impression: Fall Patient Disposition: Left W/O Completing Treatment Prescriptions: No Action amoxicillin 500 mg capsule 500 mg PO Q8H Qty: 42 0RF clarithromycin 500 mg tablet 500 mg PO Q12H Qty: 28 0RF omeprazole 40 mg capsule,delayed release(DR/EC) 40 mg PO DAILY Qty: 14 0RF lisinopril-hydrochlorothiazide 20-12.5 mg tablet 1 tab PO DAILY 30 Days Qty: 90 0RF cholecalciferol (vitamin D3) [Vitamin D3] 25 mcg (1,000 unit) Capsule 25 mcg PO DAILY Proctofoam HC 1-1 % foam 1 appl MO BEDTIME Qty: 10 0RF hydrocortisone [Anusol-HC] 2.5 % cream with perineal applicator 1 appl MO BEDTIME PRN (Reason: hemorrhoids) Qty: 30 0RF alprazolam 0.5 mg tablet 0.5 mg PO ONCE PRN (Reason: sleep) 1 Days Qty: 1 0RF Rx Instructions: Take 1 tablet 1 hour prior to procedure (DME) FreeStyle Lite Strips Strip See Rx Instructions .ROUTE .MEDSUPPLY Qty: 100 5RF Rx Instructions: As directed to check glucose 3 times daily (DME) blood-glucose meter [FreeStyle Lite Meter] Kit See Rx Instructions .ROUTE .MEDSUPPLY Qty: 1 0RF Rx Instructions: as directed to monitor blood glucose (DME) FreeStyle Patrick 3 Sensor Device See Rx Instructions .ROUTE .MEDSUPPLY Qty: 2 11RF Rx Instructions: apply new sensor every 14 days (DME) FreeStyle Patrick 3 [place] Misc See Rx Instructions .ROUTE .MEDSUPPLY Qty: 1 0RF Rx Instructions: Use daily to monitor blood glucose levels continuously. (DME) lancets [FreeStyle Lancets] 28 gauge misc See Rx Instructions .ROUTE .MEDSUPPLY Qty: 100 5RF Rx Instructions: Use to monitor blood glucose 3 times daily. glucose [Dex4 Glucose Quick Dissolve] 4 gram tablet,chewable 16 g PO Q15M PRN (Reason: hypoglycemia) Qty: 10 3RF Rx Instructions: until symptoms of low blood sugar are controlled metformin 500 mg tablet extended release 24 hr 500 mg PO DAILY 90 Days Qty: 90 1RF Mounjaro 7.5 mg/0.5 mL pen injector 7.5 mg subcut QWEEK Qty: 2 3RF Discharge Date/Time: 04/18/25 19:40
--- NOTE | 2025-04-18 19:08 | PC.NURSE ---
NO ANSWER WHEN CALLED FROM AT 1900
== END 2025-04-18 19:40 | disposition left against medical advice (07) ==
LOC: HO.ED 19:42
PROVIDERS: Emergency Provider Emergency Medicine; PCP Nurse Practitioner Family
DX: M25.551 Pain in right hip (principal); R10.2 Pelvic and perineal pain; Z79.899 Other long term (current) drug therapy
CPT/HCPCS: 74176; 99281; 99284

== ENCOUNTER → 2025-04-18 15:44 | Outpatient (BNV) | payer OTHER, SELFPAY | PROVIDERS: PCP Nurse Practitioner Family; Visit Provider Radiology Diagnostic Radiology | DX: M25.551 Pain in right hip (principal); M54.9 Dorsalgia, unspecified; W19.XXXA Unspecified fall, initial encounter | CPT/HCPCS: 74176 ==

== ENCOUNTER 2025-05-02 15:47 | Outpatient (AMB) | payer OTHER, SELFPAY ==
--- NOTE | 2025-05-02 15:54 | MHC.PC.OV ---
Vital Signs 05/02/25 15:55 Height 5 ft 2 in Weight 203 lb 4 oz BMI 37.2 BP 114/82 Blood Pressure Location Lt brachial Position Sitting Respiration 14 Pulse 110 H Pulse Source Pulse Oximeter Temp 98.6 F Temp Source Oral Pulse Oximetry (%) 97 Oxygen Delivery Method Room Air Intake Visit Reasons: ED F/U from [place], [facility] and [facility] Intake Note: Emergency room follow up. Fell out of [facility] and injured back. Went to [facility] first, but they were busy. Went to [facility] and they did an xray. Went to [place] and had Ct scan. Went to [facility] and was given flexeril 5 mg. Went to [facility] and was given Valium. Allergies codeine (CODEINE) Allergy (Severe, Verified 05/02/25 16:02) SWELLING doxycycline (DOXYCYCLINE) Allergy (Severe, Verified 05/02/25 16:02) SWELLING Seasonal Allergies Allergy (Intermediate, Verified 05/02/25 16:02) Runny Nose Tobacco use date assessed: 05/02/25 Dental Screening Dental Screen Date: 05/04/25 Did you have a dental visit in the last 12 months?: Yes Did you have a dental problem in the last 6 months where you did not have access to dental care?: No Was dental information given to patient?: Patient has dentist HPI HPI Comments History of Present Illness Details 44 year old female with obesity, hypertension, diabetes type 2, obstructive sleep apnea, GERD, mild intermittent asthma, ROSALBA, H. pylori, gallstones, constipation, umbilical hernia, cervical spondylosis, lumbar spine DJD, ovarian cyst presenting for ER follow up Fell injuring right hip on 04/18. Patient was bringing soup from her camper to her friend and fell on the camper steps 04/18/25-left [facility] AMA 04/18/25-[facility]. xray without fracture. Given flexeril 04/19/25-[facility] CT hip negative for fracture. Showed lumbar DDD 04/19 or 04/20 [facility] received -received steroids and valium. DM-On metfromin, mounjaro. ROS CONSTITUTIONAL: Denies weight loss, fever and chills. HEENT: Denies changes in vision and hearing. RESPIRATORY: Denies SOB and cough. CV: Denies palpitations and CP GI: Denies abdominal pain, nausea, vomiting and diarrhea. : Denies dysuria and urinary frequency. MSK: Denies new myalgia and joint pain. SKIN: Denies rash and pruritus. NEUROLOGICAL: Denies headache PSYCHIATRIC: Denies recent changes in mood. PHYSICAL EXAM: GENERAL: Alert and oriented x 3. NAD EYES: EOMI. Anicteric. HENT: Moist mucous membranes. No scleral icterus. No cervical lymphadenopathy. LUNGS: Clear to auscultation bilaterally. CARDIOVASCULAR: Regular rate and rhythm. No murmur. No JVD. ABDOMEN: Soft, non-tender +bs EXTREMITIES: No edema. Non-tender. SKIN: No rashes or lesions. Warm. NEUROLOGIC: No focal neurological deficits. CN II-XII grossly intact PSYCHIATRIC: Cooperative. Appropriate mood and affect ON LICENSE OF [facility] Medical History Hepatic steatosis Uncontrolled type 2 diabetes mellitus with hyperglycemia Mixed hypercholesterolemia and hypertriglyceridemia BMI 37.0-37.9, adult Obesity DARIN (obstructive sleep apnea) GERD (gastroesophageal reflux disease) Diabetes mellitus Asthma Anxiety HTN (hypertension) Umbilical hernia Surgical History H/O umbilical hernia repair History of surgery Hx of bilateral breast reduction surgery History of esophagogastroduodenoscopy (EGD) H/O section History of appendectomy H/O eye surgery History of tonsillectomy Family History Mother HTN (hypertension) Diabetes Father Heart disease Social History Household Members: Spouse and Children Housing: House Alcohol intake: current Alcohol intake frequency: other Patient Tobacco Use Status: Never used Tobacco e-Cigarette/Vaping Use: Never Used Second Hand Smoke Exposure: No Use of substances other than those prescribed or required for medical reasons: No service: No Current occupational status: employed 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 Current occupational exposures/hazards: No Cognitive needs: No Hearing needs: No Vision needs: No Questionnaire Thrive Questionnaire Date Thrive assessed: 05/01/25 I am a: Patient What is your living situation today?: I have a steady place to live Within the past 12 months, did the food you bought not last and you didn't have the money to get more?: I choose not to answer this question Within the past 12 months, did you worry whether your food would run out before you got money to buy more?: I choose not to answer this question Do you have trouble paying for medicines?: No Do you have trouble getting transportation to medical appointments?: No Do you have trouble paying your heating and electricity bill?: No Do you have trouble taking care of your child, family member or friend?: No Do you have trouble with day-to-day activities such as bathing, preparing meals, shopping, managing finances, etc.?: I choose not to answer this question Are you currently unemployed and looking for a job?: No Are you interested in more education?: I choose not to answer this question Please select the resources that you would like help with: None Currently or been in a relationship where the following occur: I choose not to answer THRIVE Score: 0 AUDIT C Alcohol Use Questionnaire (AUDIT-C) 1. How often do you have a drink containing alcohol?: Never 3. How often do you have six or more drinks on one occasion?: Never Total Score: 0 ROSALBA-7 AMB Questionnaire ROSALBA-7 Date ROSALBA - 7 assessed: 05/02/25 Feeling nervous, anxious, or on edge: 0 = Not at all Not being able to stop or control worryin = Not at all Worrying too much about different things: 0 = Not at all Trouble relaxin = Not at all Being so restless that it is hard to sit still: 0 = Not at all Becoming easily annoyed or irritable: 0 = Not at all Feeling afraid as if something awful might happen: 0 = Not at all Total ROSALBA-7 score (0-4 normal; 5-9 mild; 10-14 moderate; 15-21 severe): 0 Source: Developed by Drs. Saud Cantu, Lalitha Loco, Evaristo Schultz and colleagues, with an educational deon from [employer]. ROSALBA-7 Assessment Billing ROSALBA-7 Assessment Tool: ROSALBA-7 Assessment 22055 Physical exam (Primary Care) Vital Signs: Last Vital Signs Temp 98.6 F 05/02/25 15:55 Pulse 110 H 05/02/25 15:55 Resp 14 05/02/25 15:55 BP 114/82 05/02/25 15:55 Pulse Ox 97 05/02/25 15:55 Oxygen Delivery Method Room Air 05/02/25 15:55 BMI result Body Mass Index 37.2 Tobacco/Smoking Status: Tobacco use Status Tobacco use date assessed 05/02/25 05/02/25 15:56 Patient Tobacco Use Status Never used Tobacco 05/04/25 14:18 e-Cigarette/Vaping Use Never Used 05/04/25 14:18 Thrive Assessment: Date of Thrive Assessment Date Thrive assessed 05/01/25 05/02/25 15:56 Currently or been in a relationship where the following occur: I choose not to answer Coding Level of Care Code Est Pt Level 3 (96318) Diagnoses Right hip pain M25.551 Additional Codes ROSALBA-7 Assessment Billing - ROSALBA-7 Assessment Tool: ROSALBA-7 Assessment 99330 ([id number]) Assessment & Plan Assessment & Plan (1) Right hip pain: Code(s): M25.551 - Pain in right hip Category: Medical Plan: Right hip pain is resolving/improving FMLA form filled
[2025-05-02 15:55] VITALS: BP 114/82; PULSE 110; RESP 14; TEMP 37; O2SAT 97; BMI 37.2
--- OUTSIDE RECORDS SUMMARY | 2025-05-02 18:50 | XMS_ITS | Clinical Summary ---
Author Organization [facility] Address [address] [place] [address] Care Team Providers Care Creative Arts Music Therapist Name Role Phone Mike Caicedo Primary Care Provider [phone] Source Comments PLEASE NOTE, if this patient [...] complication, without long-term current use of insulin ([facility]) Take 1 Tab by mouth 2 (two) times daily with a meal 60 Tab 11 7 Active FREESTYLE INSULINX TEST STRIPS strips TEST 2 TIMES A DAY 100 Each 5 7 Active FREESTYLE LANCETS 28 gauge TEST 2 TIMES A DAY 100 Each 11 7 Active vit F-jzqgiops-paxbnt icone (CETAPHIL) lotionIndications :Flexural eczema Apply topically as needed for other reason (eczema) 473 mL 3 7 Active lisinopriL-hydroc hlorothiazide 20-12.5 mg per tabletIndications :Essential hypertension TAKE 1 TABLET BY MOUTH EVERY DAY 14 Tab 0 Active Active Problems Problem Noted Date Diagnosed Date Essential hypertension DM (diabetes mellitus) ([facility]) Overview (05/07/2016): Followed by [facility] Endocrinology Anxiety state Immunizations Immunization Administration Dates [...] 80 10/27/2017 8:59 AM EST Temperature 37 C (98.6 F) 10/27/2017 8:59 AM EST Respiratory Rate 20 [...] Imm-Pneumococcal (1 of 2 - PCV) 1999 Hemoglobin A1c 04/27/2018 10/27/2017 Annual Wellness (Adult): Ind icated (All Coverage) 10/27/2018 10/27/2017 Relationship Safety Screening/Counseling 10/27/2018 10/27/2017 Lipid Screening 12/25/2018 12/25/2017 Serum Creatinine 12/25/2018 12/25/2017 Retinopathy Screening 02/02/2019 02/02/2018, 016 Cervical Cancer Screening 02/28/2019 Pap Smear 02/28/2019 02/29/2016 (Angeles evangelista by Outside Provider) Breast Cancer Screening (Mammogram) 2020 [id number] ( season) 2024 Alcohol and Drug Screen 11/09/2024 10/27/20 17, 05/07/2016, 05/07/2016 Depression Annual Screen 11/09/2024 10/27/2017, 04/10 Imm-Influenza (Season Ended) 2025 Hepatitis C Screening Completed 12/25/2017 Cervical Ablation/Cold-Knife [...] EST) HEPATITIS B SURFACE ANTIBODY POSITIVE(A) NEGATIVE [facility] HEPATITIS B SURFACE ANTIGEN NEGATIVE NEGATIVE [facility] Comment: Over the counter supplements containing high doses of biotin may interfere with this assay. If interference is suspected, patients shoud be retested after refraining from biotin supplements for 72 hours. HEPATITIS C VIRUS DIAGNOSTIC NEGATIVE NEGATIVE [facility] HEPATITIS A ANTIBODY TOTAL NEGATIVE NEGATIVE [facility] Comment: Over the counter supplements containing high doses of biotin may interfere with this assay. If interference is suspected, patients shoud be retested after refraining from biotin supplements for 72 hours. HEPATITIS B CORE ANTIBODY NEGATIVE NEGATIVE [facility] Blood specimen (specimen) Blood / Unknown 12/25/2017 9:30 AM EST 12/25/2017 2:[address] [facility] - 12/25/2017 3:00 PM EST [employer] [address] [place] [address] PT ID [id number] ORD# [id number] [facility] - BLOOD DRAW Edited Result - Final [address] [address], * (ABNORMAL) LIPID PANEL (12/25/2017 9:30 AM EST) CHOLESTEROL 179 0 - 200 mg/dL [facility] TRIGLYCERIDES 140 0 - 150 mg/dL [facility] HDL CHOLESTEROL 44 >40 mg/dL [facility] LDL CALCULATED 107(H) 0 - 100 mg/dL [facility] TC-HDLC RATIO 4.1 0 - 4.4 mg/dL [facility] Blood specimen (specimen) Blood / Unknown 12/25/2017 9:30 AM EST 12/25/2017 2:[address] [facility] - 12/25/2017 2:38 PM EST [employer] [address] [place] [address] PT ID [id number] ORD# [id number] [facility] - BLOOD DRAW Edited Result - Final [facility] [address] [place] [address], * (ABNORMAL) COMPRE METAB PANEL (12/25/2017 9:30 AM EST) GLUCOSE 160(H) 70 - 100 mg/dL [facility] Comment:Reference range appl icable to fasting specimens only BUN 11 5 - 25 mg/dL [facility] CREAT 0.86 0.5 - 1.1 mg/dL [facility] GLOMERULAR FILTRATION RATE > 60 [facility] Comment: If patient is -Citizen Of The [place], multiply result by 1.21 Chronic Kidney Disease: < 60 ml/min/1.73 square meters Kidney Failure: < 15 ml/min/1.73 square meters SODIUM 136 133 - 145 mmol/L [facility] POTASSIUM 4.4 3.5 - 5.5 mmol/L [facility] CHLORIDE 102 96 - 110 mmol/L [facility] CO2 26 21 - 32 mmol/L [facility] ANION GAP 8 3 - 11 [facility] CALCIUM 9.3 8.5 - 10.5 mg/dL [facility] TOTAL PROTEIN 7.3 6.0 - 8.0 G/dL [facility] ALBUMIN 3.7 3.2 - 5.0 G/dL [facility] BILI, TOTAL 0.4 0.0 - 1.4 mg/dL [facility] SGOT 16 10 - 42 U/L [facility] SGPT 22 10 - 60 U/L [facility] ALK PHOS 78 42 - 121 U/L [facility] Blood specimen (specimen) Blood / Unknown 12/25/2017 9:30 AM EST 12/25/2017 2:10 PM EST Narrative [facility] - 12/25/2017 2:38 PM EST [facility] [address] [place] [address] PT ID [id number] ORD# [id number] [facility] - BLOOD DRAW Edited Result - Final Code [facility] [address] [place] [address], * HGA1C POCT (10/27/2017 10:04 AM EST) HGB A1C 7.3 % [facility] POCT Blood specimen (specimen) Blood / Unknown 10/27/2017 10:04 AM EST [facility] - BLOOD DRAW Final Result [facility] POCT from Last 3 Months or Most Recently Relevant to Health Maintenance Insurance [employer] Care Teams [employer] Therapist Relationship Specialty Start Date End Date Mike Caicedo PA [address] [place] [id number] PCP - General Internal Medicine 11/07/16
== END 2025-05-02 16:27 | disposition home or self-care (01) ==
LOC: HO.HMCFM 15:48
PROVIDERS: PCP Nurse Practitioner Family; Visit Provider Internal Medicine
DX: M25.551 Pain in right hip (principal)

== ENCOUNTER → 2025-05-02 15:47 | Outpatient (BNVA) | payer OTHER, SELFPAY | PROVIDERS: PCP Nurse Practitioner Family; Visit Provider Internal Medicine | DX: M25.551 Pain in right hip (principal) | CPT/HCPCS: 96127; 99212 ==